=== PATIENT | male | born 1970 | race Caucasian/White ===

== ENCOUNTER 2021-03-05 18:50 | Outpatient (CLI) | payer MEDICAID, SELFPAY ==
[2021-03-05 19:21] LABS: Basophils # 0.1 10^3/uL (0.0-0.1); Basophils % 0.7 %; Eosinophils # 0.3 10^3/uL (0.0-0.8); Eosinophils % 3.6 %; Hematocrit 36.6 % (42.0-52.0); Hemoglobin 12.1 g/dL (11.7-16.6); Lymphocytes # 2.7 10^3/uL (0.8-4.8); Mean Corpuscular HGB Conc 33.1 g/dL (30.0-36.0); Mean Corpuscular Hemoglobin 30.1 pg (28.0-34.0); Mean Platelet Volume 11.5 fL (7.4-10.4); Monocytes % 10.5 %; Neutrophils # 5.12 10^3/uL (1.8-7.7); Neutrophils % 55.7 %; Nucleated Red Blood Cells % 0 %; Platelet Count 295 10^3/cmm (130-400); Red Blood Count 4.02 10^6/uL (4.1-5.3); Red Cell Distribution Width 15.3 % (12.1-15.1); White Blood Count 9.2 10^3/uL (4.0-10.0)
[2021-03-05 19:54] LABS: Alanine Aminotransferase 17 U/L (0-41); Albumin Level 4.2 g/dL (3.5-5.2); Alkaline Phosphatase 62 IU/L (40-130); Blood Urea Nitrogen 13 mg/dL (6-20); Calcium 9.4 mg/dL (8.5-10.5); Carbon Dioxide 26 mmol/L (22-29); Chloride 103 mmol/L (98-107); Globulin 2.5 g/dL (1.3-4.6); Glomerular Filtration Rate 90.1 mL/min (90-130); Glucose 119 mg/dL (65-115); Osmolality Calculated 291 mOsm/kg (285-295); Sodium 140 mmol/L (136-145); Total Bilirubin 0.2 mg/dL (0.15-1.2); Total Protein 6.7 g/dL (6.6-8.7)
[2021-03-05 19:56] LABS: Anion Gap 15.1 (5-19); Aspartate Amino Transferase 18 U/L (0-40); Potassium 4.1 mmol/L (3.5-5.1)
== END 2021-03-05 18:51 | disposition home or self-care (01) ==
LOC: LAB 18:52
PROVIDERS: Visit Provider General Practice
DX: F32.A Depression, unspecified (principal)
CPT/HCPCS: 80053; 85025

== ENCOUNTER 2021-06-29 18:05 | Inpatient (IN) | payer MEDICAID, SELFPAY ==
[2021-06-29 18:10] VITALS: BMI 24.8
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
[2021-06-29 19:19] LABS: Basophils # 0.1 10^3/uL (0.0-0.1); Basophils % 0.6 %; Eosinophils # 0.2 10^3/uL (0.0-0.8); Hematocrit 41.8 % (42.0-52.0); Lymphocytes # 3.7 10^3/uL (0.8-4.8); Lymphocytes % 41.4 %; Mean Corpuscular HGB Conc 33.5 g/dL (30.0-36.0); Mean Corpuscular Hemoglobin 28.1 pg (28.0-34.0); Mean Corpuscular Volume 83.8 fl (80-94); Monocytes # 0.6 10^3/uL (0.2-0.9); Monocytes % 6.9 %; Neutrophils # 4.42 10^3/uL (1.8-7.7); Neutrophils % 48.8 %; Nucleated Red Blood Cells % 0 %; Platelet Count 281 10^3/cmm (130-400); Red Blood Count 4.99 10^6/uL (4.1-5.3); Red Cell Distribution Width 13.5 % (12.1-15.1)
[2021-06-29 19:35] LABS: Amphetamines Screen Urine Negative (Negative); Barbiturates Screen Urine Negative (Negative); Benzodiazepines Screen Urine Negative (Negative); Cocaine Screen Urine Negative (Negative); Opiate Screen Urine Negative (Negative); PCP Screen Urine Negative (Negative); THC Screen Urine Negative (Negative)
[2021-06-29 19:36] VITALS: BP 153/102; PULSE 100; RESP 16; TEMP 36.6; O2SAT 95
[2021-06-29 19:47] LABS: Alanine Aminotransferase 47 U/L (0-41); Albumin Level 4.7 g/dL (3.5-5.2); Alkaline Phosphatase 62 IU/L (40-130); Anion Gap 21.9 (5-19); Aspartate Amino Transferase 67 U/L (0-40); Blood Urea Nitrogen 13 mg/dL (6-20); Calcium 9.5 mg/dL (8.5-10.5); Carbon Dioxide 23 mmol/L (22-29); Chloride 103 mmol/L (98-107); Globulin 2.3 g/dL (1.3-4.6); Glomerular Filtration Rate 120.4 mL/min (90-130); Glucose 86 mg/dL (65-115); Osmolality Calculated 297 mOsm/kg (285-295); Potassium 3.9 mmol/L (3.5-5.1); Sodium 144 mmol/L (136-145); Total Bilirubin 0.3 mg/dL (0.15-1.2)
[2021-06-29 19:54] LABS: Acetaminophen < 5.0 ug/mL (10-30); Salicylate < 0.3 mg/dL (3-10)
[2021-06-29 19:55] LABS: Alcohol Level 344 mg/dL (0-10)
[2021-06-29 20:41] VITALS: BP 126/88; PULSE 119; RESP 18; O2SAT 93
[2021-06-29 21:00] VITALS: BP 136/95; PULSE 114; RESP 18; O2SAT 94
[2021-06-29 21:31] LABS: SARS Covid-2 Antigen Negative (Negative)
[2021-06-29] MEDS: multivitamin therapeutic Tablet 1 TAB PO (21:41)
[2021-06-29] MEDS: LORazepam 2 mg/mL INJ 1 mL 1 MG IM (22:35)
[2021-06-29] MEDS: haloperidol inj 5 mg/mL INJ 1 mL IM (22:35)
[2021-06-29 22:44] VITALS: BP 109/70; PULSE 99; RESP 16; O2SAT 94
[2021-06-29 23:30] VITALS: BP 113/73; PULSE 106; RESP 18; TEMP 36.9; O2SAT 92
[2021-06-30] VITALS: BP 108/72; BP 110/70; PULSE 101; PULSE 99; RESP 16; RESP 17; O2SAT 93; O2SAT 94
[2021-06-30 04:00] VITALS: BP 116/75; PULSE 95; RESP 16; TEMP 36.8; O2SAT 95
--- NOTE | 2021-06-30 08:23 | PC.NURSE ---
while at bedside pt is in nad. pt is calm and answering questions appropriately.
--- NOTE | 2021-06-30 11:39 | PC.PHAR ---
PT STATES HE TAKES CARE OF HIS OWN MEDICATIONS-PT STATES HE GOT SOME OF HIS MEDICATIONS FROM THE [facility] AND IS UNSURE OF THE [facility] PHONE NUMBER WAS DISCONNECTED
[2021-06-30 13:26] VITALS: BP 136/87; PULSE 16; RESP 84; O2SAT 96
[2021-06-30 14:03] VITALS: BP 138/74; PULSE 86; RESP 17; TEMP 36.4; O2SAT 98
[2021-06-30] MEDS: hyDROXYzine 25 mg Capsule 50 MG PO (17:17)
--- NOTE | 2021-06-30 18:48 | PC.NURSE ---
PRN- Patient c/o anxiety at 1717. Took PRN Vistaril at that time. Medication somewhat helpful.
[2021-06-30 20:24] VITALS: BP 150/83; PULSE 77; RESP 18; TEMP 36.6; O2SAT 99
[2021-06-30] MEDS: buPROPion XL (24 HR) 150 mg Tablet PO (21:37)
[2021-06-30] MEDS: gabapentin 300 mg Capsule PO (21:38)
[2021-06-30] MEDS: CELEcoxib 100 mg Capsule PO (21:38)
[2021-07-01 05:43] VITALS: BP 124/78; PULSE 64; RESP 17; TEMP 36.9; O2SAT 97
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
[2021-07-01] MEDS: citalopram 20 mg Tablet 40 MG PO (08:32)
[2021-07-01] MEDS: CELEcoxib 100 mg Capsule PO ×2 (08:32→16:55)
[2021-07-01] MEDS: gabapentin 300 mg Capsule PO ×3 (08:32→21:29)
[2021-07-01] MEDS: nicotine 21 mg Patch 1 PATCH TRANSDERMA (09:10)
--- NOTE | 2021-07-01 12:48 | NPU.GN ---
[facility] Unit Group Topic:Coping Skills General Mood of Group: Jacobo did attend and participate in group today. He was also set up with a therapy appointment with [facility] Jun. He was social and hygiene was good. Client seems stable at this time.
[2021-07-01] MEDS: hyDROXYzine 25 mg Capsule 50 MG PO ×2 (13:15→21:41)
--- NOTE | 2021-07-01 13:21 | SUR.EXTENDED ---
PATIENT C/O ANXIETY. [facility] ADMINISTERED PO. WILL MONITOR FOR DRUG EFFECTIVENESS
[2021-07-01 13:46] VITALS: BP 129/81; PULSE 75; RESP 22; TEMP 36.9; O2SAT 98
--- NOTE | 2021-07-01 14:10 | PC.NURSE ---
PATIENT REPORTS HE FEELS BETTER, PRN EFFECTIVE. WILL CONT TO MONITOR, SUPPORT AND REDIRECT NEEDED
[2021-07-01 20:14] VITALS: BP 129/81; PULSE 75; RESP 22; TEMP 36.9; O2SAT 98
[2021-07-01] MEDS: buPROPion XL (24 HR) 150 mg Tablet PO (21:29)
[2021-07-02] MEDS: OLANZapine 5 mg ODT PO (01:02)
[2021-07-02 06:00] VITALS: RESP 16
[2021-07-02] MEDS: hyDROXYzine 25 mg Capsule 50 MG PO ×2 (10:19→18:19)
[2021-07-02] MEDS: citalopram 20 mg Tablet 40 MG PO (10:19)
[2021-07-02] MEDS: buPROPion XL (24 HR) 150 mg Tablet PO (10:19)
[2021-07-02] MEDS: CELEcoxib 100 mg Capsule PO ×2 (10:19→18:19)
[2021-07-02] MEDS: gabapentin 300 mg Capsule PO ×3 (10:20→21:25)
[2021-07-02] MEDS: nicotine 21 mg Patch 1 PATCH TRANSDERMA (11:15)
--- NOTE | 2021-07-02 12:47 | NPU.GN ---
[facility] Unit Group Topic:Symptoms/ Judgment Boat Activity General Mood of Group: Jacobo did attend and participate in group today. Hygiene was ok , did well and seems stable at this time.
[2021-07-02 14:00] VITALS: BP 110/74; PULSE 77; RESP 22; TEMP 36.4; O2SAT 97
--- NOTE | 2021-07-02 15:32 | P.NPUPN_ITS ---
Subjective NPU Subjective: Interval history: He said that he is doing much better. He says he has things lined. He has a class or 2 every day and will spend 8 hours on Tuesday and Tuesday afternoon. He has no part-time and will increase to full-time at his job very soon. He is adamant that he is going to stay away from alcohol. He says that he has tried Antabuse and naltrexone previously and they have not been helpful for his alcohol. He has not required any Ativan for alcohol withdrawal. He feels like his medication is working well for his depression and anxiety. He is anxious to go home and clean up his house before going to turn he leaves for 8 hoursthis weekend and restarted work on Tuesday. Mental Status Exam MSE Comments: This is a well-nourished, well-developed, white male, with adequate dress, grooming, and eye contact. He had a red discoloration on his left cheek. No abnormal movements, except for psychomotor retardation. Cooperative with exam in no acute distress. Speech was slightly decreased rate and volume. Mood described as better; affect subdued. Thought process, organized. Thought content: patient denied any suicidal or homicidal ideation, there were no delusions reported or noted, patient denied any auditory or visual hallucinations. Attention, concentration, and memory appear intact but none were formally tested. He is alert and oriented times three. Insight and judgment are limited. Impulse control is limited. Cognition: Patient Appearance: Appropriate Level of Consciousness: Awake, Alert, Appropriate and Follows Commands Patient Cognition Impaired: No Ability to Follow Directions: Good Patient Orientation (long list): Person, Place, Time, Name and Age Comprehension Ability: No Impairment Hallucination Type: None Delusion Description: Not Present Thought Process: Appropriate Affect: Affect Description: Appropriate Behavior: Patient Behavior: Appropriate Speech Pattern: Appropriate Vitals/I&O/Wt Last Vital Signs Temp 98.5 F 07/01/21 20:14 Pulse 75 07/01/21 20:14 Resp 16 07/02/21 06:00 BP 129/81 07/01/21 20:14 Pulse Ox 98 07/01/21 20:14 Data NPU : 06/29/21 19:10 06/29/21 19:10 A&P Assessment and plan (1) Suicidal ideation: Status: Acute (2) Acute alcohol intoxication: Status: Acute (3) Major depressive disorder, recurrent: Status: Acute Plan This is a 50-year-old, white male, with a long a long history of depression and addiction, with recent mental health treatment as he has struggled with losing a significant relationship and friendship, who presents having relapsed on alcohol and feeling suicidal. 1. Continue current medication. 2. Encourage individual, group, and milieu therapy. 3. Continue q-15 minute checks for safety. 4. CIWA protocol. 5. Recommend sober living treatment at the highest level of care to which the patient is willing to commit. Involuntary Hold Information 96 Hour Hold: 96 Hour Involuntary Admission: Yes 96 Hour Hold Ending Date: 07/03/21 96 Hour Hold Ending Time: 18:20 Attestations NPU Medical Necessity Statement*: Inpatient hospitalization is medically necessary and the clinically appropriate intervention at this time. We will initiate medications and make changes as indicated. Coding Level of Care Code Acute Public Speaking Teacher for Garrett Marks Diagnoses Suicidal ideation R45.851 Acute alcohol intoxication F10.929 Major depressive disorder, recurrent F33.9
[2021-07-02] MEDS: trazodone 50 mg Tablet PO (21:22)
[2021-07-02 22:00] VITALS: BP 138/83; PULSE 77; RESP 16; TEMP 36.4; O2SAT 98
[2021-07-03 06:00] VITALS: BP 114/75; PULSE 84; RESP 16; O2SAT 97
[2021-07-03] MEDS: buPROPion XL (24 HR) 150 mg Tablet PO (06:43)
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
[2021-07-03] MEDS: citalopram 20 mg Tablet 40 MG PO (10:04)
[2021-07-03] MEDS: CELEcoxib 100 mg Capsule PO (10:04)
[2021-07-03] MEDS: gabapentin 300 mg Capsule PO (10:04)
[2021-07-03 10:39] VITALS: BP 114/75; PULSE 84; RESP 16; O2SAT 97
== END 2021-07-03 11:15 | disposition home or self-care (01) | DRG 885 ==
LOC: ER 23:58 → ER IP 06-30 08:08 → NP 07-01 06:00
PROVIDERS: Emergency Medicine; Admitting Provider Psychiatry & Neurology Psychiatry; Emergency Provider Physician Assistant; Visit Provider Psychiatry & Neurology Psychiatry
DX: F33.9 Major depressive disorder, recurrent, unspecified (principal); R45.851 Suicidal ideations; F10.129 Alcohol abuse with intoxication, unspecified; Z91.51 Personal history of suicidal behavior
CPT/HCPCS: 80053; 80306; 80307; 85025; 87426; 96372; 97150; 97165; 99285; J1630; J2060; J3411; J3490

== ENCOUNTER → 2021-08-03 09:43 | Outpatient (BNVA) | payer OTHER, MEDICAID, SELFPAY | PROVIDERS: Visit Provider Counselor Mental Health | DX: F33.1 Major depressive disorder, recurrent, moderate (principal) | CPT/HCPCS: 90834 ==

== ENCOUNTER 2021-09-08 19:35 | Inpatient (IN) | payer MEDICAID, SELFPAY ==
[2021-09-08 19:37] VITALS: BP 160/98; PULSE 100; RESP 18; TEMP 36.7; O2SAT 97; BMI 27.1
--- NOTE | 2021-09-08 19:41 | ED_ITS ---
HPI - General Adult General: Chief complaint: Psychiatric Symptoms Stated complaint: SI Time Seen by Provider: 09/08/21 19:39 History of Present Illness: HPI: [51]yo patient w/ hx of alcohol abuse BIBA for suicidal ideation with plan. Patient plans to hang himself. On arrival, the patient is AAOx3 and cooperative with my evaluation. No focal complaints of chest pain, shortness of breath, palpitations, N/V, focal GI/ complaints. Currently denies HI. No complaints of hallucinations. Onset: acute Duration: ongoing Location: home Severity: severe Associated symptoms: Deny chest pain, dyspnea, nausea, rash, palpitations or vomiting Review of Systems Const: Denies: fever(s) or chills Eyes: Denies: change in vision ENMT: Denies: mouth pain Card: Denies: chest pain or palpitations Resp: Denies: dyspnea or non-productive cough GI: Denies: abdominal pain, nausea, vomiting or diarrhea : Denies: dysuria Musc: Denies: extremity pain Skin/Breast: Denies: rash or new lesions Neuro: Denies: weakness in extremities Psych: Reports: depression and suicidal ideation Bg/Lymph: Denies: easy bruising PFSH ED PFSH: Medical History Alcohol dependence Depression Psychiatric care Social History Smoking and tobacco status: current every day smoker Alcohol intake: current Substance/Drug Use: never Physical Exam Const: COMMON NORMALS: alert HENMT: COMMON NORMALS: atraumatic HEAD & SCALP: atraumatic MOUTH: moist mucous membranes not abnormal Eye: COMMON NORMALS: EOMs intact bilaterally and conjunctivae normal CONJUNCTIVA: Yes conjunctivae normal Neck/C-Spine: COMMON NORMALS: full ROM and supple Resp: COMMON NORMALS: normal respiratory effort and clear to auscultation bilaterally AUSCULTATION: clear to auscultation bilaterally Cardio: COMMON NORMALS: regular rate RATE: regular rate GI: COMMON NORMALS: Soft to palpation and non-tender PALPATION: Yes Soft to palpation Extremity: COMMON NORMALS: full ROM Neuro: SENSORIUM/ORIENTATION: Yes alert MOTOR EXAM: No Abnormal motor strength present and Other motor observations present (no focal motor deficits) Psych: COMMON NORMALS: speech normal SPEECH: Yes normal speech MOOD & AFFECT: Yes depressed mood Course Vital Signs: Vital signs: Vital Signs Temperature 98.0 F 09/08/21 19:37 Pulse Rate 100 09/08/21 19:37 Respiratory Rate 18 09/08/21 19:37 Blood Pressure 160/98 09/08/21 19:37 Pulse Oximetry 97 09/08/21 19:37 MDM - General Adult Medical Decision Making [51]yo patient w/ hx of depression and alcohol dependence presenting for SI with plan. HDS, exam within normal limit Thoughts are linear and organized, and the patient has no AH/VH, or HI. Clinically the patient displays no overt toxidrome; they are well appearing, with low suspicion for toxic ingestion given history and exam. Symptoms unlikely 2/2 anemia, hypothyroidism, infection, or ICH. Workup: CBC, CMP, Lipase, salicylate/tylenol, UDS Lab findings: wnl [8:45pm] On reassessment, labs and workup wnl. Patient is hemodynamically stable with no acute medical complaints. Case discussed with psychiatric provider Dr. Walls at [facility] psych inpatient with recommendation for admission Disposition: Psych Lab Data : 09/08/21 19:50 09/08/21 19:50 Laboratory Results WBC 6.0 10^3/uL (4.0-10.0) 09/08/21 19:50 RBC 4.88 10^6/uL (4.1-5.3) 09/08/21 19:50 Hgb 13.9 g/dL (11.7-16.6) 09/08/21 19:50 Hct 41.2 % (42.0-52.0) L 09/08/21 19:50 MCV 84.4 fl (80-94) 09/08/21 19:50 MCH 28.5 pg (28.0-34.0) 09/08/21 19:50 MCHC 33.7 g/dL (30.0-36.0) 09/08/21 19:50 RDW 15.8 % (12.1-15.1) H 09/08/21 19:50 Plt Count 256 10^3/cmm (130-400) 09/08/21 19:50 MPV 10.1 fL (7.4-10.4) 09/08/21 19:50 Neut % (Auto) 71.3 % 09/08/21 19:50 Lymph % (Auto) 16.3 % 09/08/21 19:50 [place] % (Auto) 11.1 % 09/08/21 19:50 Eos % (Auto) 0.3 % 09/08/21 19:50 Baso % (Auto) 0.7 % 09/08/21 19:50 Neut # (Auto) 4.24 10^3/uL (1.8-7.7) 09/08/21 19:50 Lymph # (Auto) 1.0 10^3/uL (0.8-4.8) 09/08/21 19:50 [place] # (Auto) 0.7 10^3/uL (0.2-0.9) 09/08/21 19:50 Eos # (Auto) 0.0 10^3/uL (0.0-0.8) 09/08/21 19:50 Baso # (Auto) 0.0 10^3/uL (0.0-0.1) 09/08/21 19:50 Nucleated RBC % (auto) 0 % 09/08/21 19:50 Nucleated RBCs # 0.0 /100WBC 09/08/21 19:50 Discharge Plan Discharge Patient Disposition: Admitted As Inpatient Clinical Impression: Depression with suicidal ideation Condition: Stable Coding Level of Care Code ED Sessions Clerk for Garrett Fwd Exam Comprehensive
[2021-09-08 19:58] LABS: Basophils % 0.7 %; Eosinophils % 0.3 %; Hematocrit 41.2 % (42.0-52.0); Hemoglobin 13.9 g/dL (11.7-16.6); Lymphocytes % 16.3 %; Mean Corpuscular HGB Conc 33.7 g/dL (30.0-36.0); Mean Corpuscular Hemoglobin 28.5 pg (28.0-34.0); Mean Corpuscular Volume 84.4 fl (80-94); Mean Platelet Volume 10.1 fL (7.4-10.4); Monocytes # 0.7 10^3/uL (0.2-0.9); Monocytes % 11.1 %; Neutrophils # 4.24 10^3/uL (1.8-7.7); Neutrophils % 71.3 %; Nucleated Red Blood Cells % 0 %; Platelet Count 256 10^3/cmm (130-400); Red Blood Count 4.88 10^6/uL (4.1-5.3); Red Cell Distribution Width 15.8 % (12.1-15.1)
[2021-09-08] MEDS: nicotine 21 mg Patch 1 PATCH TRANSDERMA (20:08)
[2021-09-08 20:15] LABS: Alanine Aminotransferase 32 U/L (0-41); Albumin Level 4.9 g/dL (3.5-5.2); Alkaline Phosphatase 62 IU/L (40-130); Aspartate Amino Transferase 40 U/L (0-40); Blood Urea Nitrogen 9 mg/dL (6-20); Calcium 9.7 mg/dL (8.5-10.5); Carbon Dioxide 23 mmol/L (22-29); Chloride 96 mmol/L (98-107); Globulin 2.2 g/dL (1.3-4.6); Glomerular Filtration Rate 102.7 mL/min (90-130); Glucose 77 mg/dL (65-115); Lipase 29 U/L (13-60); Osmolality Calculated 279 mOsm/kg (285-295); Sodium 136 mmol/L (136-145); Total Bilirubin 0.3 mg/dL (0.15-1.2); Total Protein 7.1 g/dL (6.6-8.7)
[2021-09-08 20:18] LABS: Acetaminophen < 5.0 ug/mL (10-30); Salicylate < 0.3 mg/dL (3-10)
[2021-09-08 20:24] LABS: Amphetamines Screen Urine Negative (Negative); Barbiturates Screen Urine Negative (Negative); Benzodiazepines Screen Urine Negative (Negative); Cocaine Screen Urine Negative (Negative); Opiate Screen Urine Negative (Negative); PCP Screen Urine Negative (Negative); THC Screen Urine Negative (Negative)
[2021-09-08 22:24] LABS: Alcohol Level 40 mg/dL (0-10)
[2021-09-08 22:32] VITALS: PULSE 95; RESP 18; O2SAT 93
[2021-09-08 22:48] VITALS: BP 139/88; PULSE 98; RESP 18; TEMP 36.9; O2SAT 97
[2021-09-08] MEDS: hyDROXYzine 25 mg Capsule 50 MG PO (23:49)
--- NOTE | 2021-09-09 05:10 | PC.ADMIT ---
[address] Admission Note: The patient,Jacobo Garsia,51 y/o, was given written information regarding hospital policies, unit procedures and contact persons. Patient's smoking status: current every day smoker. Vital Signs - 8 hr 09/08/21 22:32 09/08/21 22:48 Temperature 98.4 F Pulse Rate 95 98 Respiratory Rate 18 18 Blood Pressure 139/88 Pulse Oximetry 93 97 Patient states he came in tonight due to SI and worsening depression. Patient stated current stressors as losing his job yesterday and not being able to pay rent at his apt and that he will need to move all his belongings by tuesday, he also states he made his daughter mad recently and his adoptive dad last year and mom has alzheimers and is in shelter in [place] and doesn't even know his name. He states he has no one as a support system right now. Patient states he is currently going to drug court and is also going to classes at [facility] drug rehab. He states he has drank 5 bottles of alcohol in approx 4 days recently BAL was 40, and has been smoking 1pk cigarettes per day. Denies all other drug use and UDS was negative.
[2021-09-09 06:00] VITALS: BP 134/87; PULSE 66; RESP 19; TEMP 36.7; O2SAT 97
[2021-09-09] MEDS: CELEcoxib 100 mg Capsule PO ×2 (09:16→21:14)
[2021-09-09] MEDS: gabapentin 300 mg Capsule PO ×3 (09:16→21:13)
[2021-09-09] MEDS: folic acid 1 mg Tablet PO (09:16)
[2021-09-09] MEDS: thiamine 100 mg Tablet PO (09:16)
[2021-09-09] MEDS: multivitamin therapeutic Tablet 1 TAB PO (09:16)
[2021-09-09] MEDS: hyDROXYzine 25 mg Capsule 50 MG PO ×2 (09:18→16:46)
--- NOTE | 2021-09-09 09:18 | PC.NURSE ---
PRN VISTARIL 50 MG GIVEN PO PER PT C/O STATED ANXIETY. WILL CONT TO MONITOR
--- NOTE | 2021-09-09 10:36 | PC.NURSE ---
PT IN BED. REPORTS THAT HE HAS CONTINUED SI, NO PLAN BUT INTRUSIVE THOUGHTS. PT DOES CONTRACT FOR SAFETY. DENIES ANY HI OR AVH. ENDORSES DEPRESSION. PT IS OX4, AND ANSWERS QUESTIONS APPROPRIATELY. AFFECT IS FLAT. STAFF WILL CONTINUE TO MONITOR.
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
[2021-09-09 14:00] VITALS: BP 178/84; PULSE 97; RESP 18; TEMP 36.6; O2SAT 99
--- NOTE | 2021-09-09 14:53 | PC.SOCIAL ---
Patient did not attend group.
--- NOTE | 2021-09-09 16:47 | PC.NURSE ---
PRN VISTARIL 50 MG GIVEN PO PER PT C/O STATED ANXIETY. NO OUTWARD S/S OF ANXIETY NOTED, PT PREVIOUSLY ASLEEP IN BED IN ROOM
[2021-09-09 20:38] VITALS: BP 119/76; PULSE 65; RESP 18; TEMP 36.9; O2SAT 98
[2021-09-09] MEDS: buPROPion XL (24 HR) 150 mg Tablet PO (21:13)
[2021-09-10] MEDS: hyDROXYzine 25 mg Capsule 50 MG PO (00:48)
[2021-09-10] MEDS: nicotine 4 mg lozenge MUCOUS MEM (00:48)
--- NOTE | 2021-09-10 00:50 | PC.NURSE ---
0050-C/O anxiety vistaril given po
[2021-09-10] MEDS: OLANZapine 5 mg ODT PO (03:34)
[2021-09-10 06:00] VITALS: BP 111/64; PULSE 59; RESP 18; TEMP 36.8; O2SAT 96
[2021-09-10] MEDS: CELEcoxib 100 mg Capsule PO (08:08)
[2021-09-10] MEDS: multivitamin therapeutic Tablet 1 TAB PO (08:08)
[2021-09-10] MEDS: gabapentin 300 mg Capsule PO (08:08)
[2021-09-10] MEDS: thiamine 100 mg Tablet PO (08:08)
[2021-09-10] MEDS: citalopram 20 mg Tablet 40 MG PO (08:09)
[2021-09-10] MEDS: folic acid 1 mg Tablet PO (08:09)
[2021-09-10] MEDS: nicotine 21 mg Patch 1 PATCH TRANSDERMA (08:45)
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
[2021-09-10 13:17] VITALS: BP 111/64; PULSE 59; RESP 18; TEMP 36.8; O2SAT 96
== END 2021-09-10 14:15 | disposition home or self-care (01) | DRG 885 ==
LOC: ER 20:15 → NP 09-09 06:17
PROVIDERS: Admitting Provider Psychiatry & Neurology Psychiatry; Emergency Provider Emergency Medicine; Visit Provider Psychiatry & Neurology Psychiatry
DX: F33.9 Major depressive disorder, recurrent, unspecified (principal); R45.851 Suicidal ideations; F10.20 Alcohol dependence, uncomplicated; F17.200 Nicotine dependence, unspecified, uncomplicated; Z56.89 Other problems related to employment; Z91.51 Personal history of suicidal behavior
CPT/HCPCS: 80053; 80306; 80307; 83690; 85025; 97150; 97165; 99285

== ENCOUNTER → 2021-09-18 13:22 | Outpatient (BNVA) | payer OTHER, MEDICAID, SELFPAY | PROVIDERS: Visit Provider Psychiatry & Neurology Psychiatry | DX: F41.1 Generalized anxiety disorder (principal); F40.10 Social phobia, unspecified; F10.20 Alcohol dependence, uncomplicated; F33.9 Major depressive disorder, recurrent, unspecified | CPT/HCPCS: 99204 ==

== ENCOUNTER → 2021-09-21 07:50 | Outpatient (BNVA) | payer OTHER, MEDICAID, SELFPAY | PROVIDERS: Visit Provider Counselor Mental Health | DX: F33.1 Major depressive disorder, recurrent, moderate (principal) | CPT/HCPCS: 90832 ==

== ENCOUNTER → 2021-10-05 09:36 | Outpatient (BNVA) | payer OTHER, SELFPAY | PROVIDERS: Visit Provider Counselor Mental Health | DX: F33.9 Major depressive disorder, recurrent, unspecified (principal); F60.3 Borderline personality disorder | CPT/HCPCS: 90791 ==

== ENCOUNTER → 2021-10-12 09:45 | Outpatient (BNVA) | payer OTHER, MEDICAID, SELFPAY | PROVIDERS: Visit Provider Counselor Mental Health | DX: F60.3 Borderline personality disorder (principal) | CPT/HCPCS: 90834 ==

== ENCOUNTER → 2021-10-16 15:08 | Outpatient (BNVA) | payer OTHER, SELFPAY | PROVIDERS: Visit Provider Psychiatry & Neurology Psychiatry | DX: F40.10 Social phobia, unspecified (principal); F41.1 Generalized anxiety disorder; F10.20 Alcohol dependence, uncomplicated; F33.9 Major depressive disorder, recurrent, unspecified; F60.3 Borderline personality disorder | CPT/HCPCS: 99214 ==

== ENCOUNTER → 2021-10-26 09:36 | Outpatient (BNVA) | payer OTHER, SELFPAY | PROVIDERS: Visit Provider Counselor Mental Health | DX: F60.3 Borderline personality disorder (principal) | CPT/HCPCS: 90834 ==

== ENCOUNTER 2022-07-06 08:59 | Emergency (ER) | payer MEDICAID, SELFPAY ==
[2022-07-06 09:10] VITALS: BP 136/89; PULSE 92; RESP 17; TEMP 36.4; O2SAT 96; BMI 32.1
[2022-07-06 09:52] VITALS: PULSE 72; O2SAT 97
[2022-07-06 09:59] LABS: Basophils # 0.1 10^3/uL (0.0-0.1); Basophils % 0.8 %; Eosinophils # 0.4 10^3/uL (0.0-0.8); Eosinophils % 4.7 %; Hematocrit 41.3 % (42.0-52.0); Hemoglobin 13.4 g/dL (11.7-16.6); Lymphocytes # 2.3 10^3/uL (0.8-4.8); Lymphocytes % 30.3 %; Mean Corpuscular HGB Conc 32.4 g/dL (30.0-36.0); Mean Corpuscular Hemoglobin 28.2 pg (28.0-34.0); Mean Corpuscular Volume 86.8 fl (80-94); Mean Platelet Volume 10.6 fL (7.4-10.4); Monocytes # 0.7 10^3/uL (0.2-0.9); Monocytes % 8.7 %; Neutrophils # 4.18 10^3/uL (1.8-7.7); Neutrophils % 54.8 %; Nucleated Red Blood Cells % 0 %; Platelet Count 253 10^3/cmm (130-400); Red Blood Count 4.76 10^6/uL (4.1-5.3); Red Cell Distribution Width 14.2 % (12.1-15.1); White Blood Count 7.6 10^3/uL (4.0-10.0)
--- NOTE | 2022-07-06 09:59 | ED.C_ITS ---
HPI - Psych General: Chief Complaint: Psychiatric Symptoms Stated Complaint: psych eval Time Seen by Provider: 07/06/22 09:28 Source: patient Mode of arrival: ambulatory History of Present Illness: 51-year-old male with a history of alcohol abuse and previous suicidal ideation. He presented to [facility] for intake today and made a comment that he had suicidal thoughts within the last week. At this time he denies any suicidal homicidal ideation he has no plan and he is done nothing to advance any sort of lethality. He said previous hospitalizations for suicidal ideation related to education he was discharged at both hospitalizations in 1 to 2 days. He is mostly concerned at this time that his medications do not seem to be working he is on extensive list of medications. MD complaint: suicidal ideation Onset (ago): week(s) Duration: intermittent History of same: Yes Relieving factors: none Exacerbating factors: none Associated psychiatric symptoms: depression Associated symptoms: Reports depression Treatments prior to arrival: none If self harm: admits thoughts of self harm Review of Systems Const: Denies: fever(s), chills, body aches, change in appetite, fatigue or malaise ENMT: Denies: throat pain, ear or mastoid pain, nasal discharge or nasal congestion Card: Denies: chest pain, edema, dyspnea on exertion or orthopnea Resp: Denies: dyspnea, productive cough or non-productive cough GI: Denies: abdominal pain, nausea, vomiting, hematemesis, coffee ground emesis, diarrhea, constipation, bloating, hematochezia or melena : Denies: flank pain, dysuria, urinary frequency or urinary urgency Skin/Breast: Denies: rash or pruritus Psych: Reports: depression [facility] PFSH: Medical History Alcohol dependence Depression Depression with suicidal ideation Psychiatric care Social History Smoking and tobacco status: current every day smoker cigarettes Packs smoked per day: 0.5 Years cigarettes smoked: 35 Quit status (tobacco): has tried quititng Number of times tried to quit tobacco: 3 Second hand smoke exposure: No Alcohol intake: current Physical Exam Const: COMMON NORMALS: no acute distress GENERAL APPEARANCE: cooperative and comfortable ORIENTATION/CONSCIOUSNESS: Yes awake, Yes oriented to person, Yes oriented to place and Yes oriented to time HENMT: COMMON NORMALS: normocephalic, atraumatic, hearing grossly normal bilaterally, external ears normal, EAC's normal, TM's normal bilaterally, Normal nasal mucous membranes and turbinates present, moist oral mucous membranes and oropharynx normal HEAD & SCALP: normocephalic and atraumatic NOSE: Normal nasal mucous membranes and turbinates present EXTERNAL EAR: Yes external ears normal EXTERNAL AUDITORY CANAL: EAC's normal TYMPANIC MEMBRANE: TM's no rmal bilaterally Eye: COMMON NORMALS: Equal, round and reactive pupils present, EOMs intact bilaterally, conjunctivae normal and no scleral icterus CONJUNCTIVA: Yes conjunctivae normal PUPIL: Yes Equal, round and reactive pupils present Neck/C-Spine: COMMON NORMALS: full ROM, no lymphadenopathy, supple and no JVD Lymph: LYMPHATIC: no lymphadenopathy noted and no lymphedema noted Resp: COMMON NORMALS: normal respiratory effort, No retractions, No use of accessory muscles and clear to auscultation bilaterally AUSCULTATION: clear to auscultation bilaterally Cardio: COMMON NORMALS: no JVD, regular rate, regular rhythm and No murmurs present (Cardio) RATE: regular rate RHYTHM: regular rhythm GI: COMMON NORMALS: Soft to palpation and No hepatosplenomegaly present AUSCULTATION: Yes normoactive bowel sounds PALPATION: Yes Soft to palpation, No Tenderness to palpation present (GI), No Guarding due to palpation present (GI) and Yes No hepatosplenomegaly present Extremity: COMMON NORMALS: normal to inspection, capillary refill normal, no clubbing, cyanosis or edema, no calf tenderness and no pedal edema Neuro: SENSORIUM/ORIENTATION: Yes oriented to person, Yes oriented to place and Yes oriented to time Skin: COMMON NORMALS: no rashes or lesions noted GENERAL SKIN EXAM: no rashes or lesions noted Course Vital Signs: Vital signs: Vital Signs Temperature 97.6 F 07/06/22 09:10 Pulse Rate 72 07/06/22 09:52 Respiratory Rate 17 07/06/22 09:10 Blood Pressure 136/89 07/06/22 09:10 Pulse Oximetry 97 07/06/22 09:52 Oxygen Delivery Me thod 07/06/22 09:52 [facility] - Psych Medical Decision Making Chart reviewed after seeing patient. He has had several episodes of suicidal ideation in the past he states he is considered it lately but he has no active plan at this time I called and reviewed with Dr. Deutsch including his previous hospitalizations his history and his complaint at the medications or not working at this time. Patient is adamant though that currently he is not suicidal. Dr. Deutsch and I both agree that the patient be a good candidate for psychiatric stabilization unit. Discussed with the patient he is agreeable to this she will be discharged from the ER and transported by shuttle to stabilization unit. Medical Records I reviewed the patient's medical records. Lab Data I reviewed the patient's lab results. 07/06/22 09:45 07/06/22 09:45 Laboratory Results WBC 7.6 10^3/uL (4.0-10.0) 07/06/22 09:45 RBC 4.76 10^6/uL (4.1-5.3) 07/06/22 09:45 Hgb 13.4 g/dL (11.7-16.6) 07/06/22 09:45 Hct 41.3 % (42.0-52.0) L 07/06/22 09:45 MCV 86.8 fl (80-94) 07/06/22 09:45 MCH 28.2 pg (28.0-34.0) 07/06/22 09:45 MCHC 32.4 g/dL (30.0-36.0) 07/06/22 09:45 RDW 14.2 % (12.1-15.1) 07/06/22 09:45 Plt Count 253 10^3/cmm (130-400) 07/06/22 09:45 MPV 10.6 fL (7.4-10.4) H 07/06/22 09:45 Neut % (Auto) 54.8 % 07/06/22 09:45 Lymph % (Auto) 30.3 % 07/06/22 09:45 [place] % (Auto) 8.7 % 07/06/22 09:45 Eos % (Auto) 4.7 % 07/06/22 09:45 Baso % (Auto) 0.8 % 07/06/22 09:45 Neut # (Auto) 4.18 10^3/uL (1.8-7.7) 07/06/22 09:45 Lymph # (Auto) 2.3 10^3/uL (0.8-4.8) 07/06/22 09:45 [place] # (Auto) 0.7 10^3/uL (0.2-0.9) 07/06/22 09:45 Eos # (Auto) 0.4 10^3/uL (0.0-0.8) 07/06/22 09:45 Baso # (Auto) 0.1 10^3/uL (0.0-0.1) 07/06/22 09:45 Nucleated RBC % (auto) 0 % 07/06/22 09:45 Nucleated RBCs # 0.0 /100WBC 07/06/22 09:45 Sodium 139 mmol/L (136-145) 07/06/22 09:45 Potassium 5.0 mmol/L (3.5-5.1) 07/06/22 09:45 Chloride 104 mmol/L (98-107) 07/06/22 09:45 Carbon Dioxide 24 mmol/L (22-29) 07/06/22 09:45 Anion Gap 16.0 (5-19) 07/06/22 09:45 BUN 15 mg/dL (6-20) 07/06/22 09:45 Creatinine 1.1 mg/dL (0.7-1.2) 07/06/22 09:45 GFR Calculation 71.1 mL/min (90-130) L 07/06/22 09:45 Glucose 90 mg/dL (65-115) 07/06/22 09:45 Calculated Osmolality 288 mOsm/kg (285-295) 07/06/22 09:45 Calcium 9.5 mg/dL (8.5-10.5) 07/06/22 09:45 Total Bilirubin 0.2 mg/dL (0.15-1.2) 07/06/22 09:45 AST 18 U/L (0-40) 07/06/22 09:45 ALT 24 U/L (0-41) 07/06/22 09:45 Alkaline Phosphatase 65 U/L (40-130) 07/06/22 09:45 Total Protein 6.7 g/dL (6.6-8.7) 07/06/22 09:45 Albumin 4.4 g/dL (3.5-5.2) 07/06/22 09:45 Globulin 2.3 g/dL (1.3-4.6) 07/06/22 09:45 Salicylates < 0.3 mg/dL (3-10) L 07/06/22 09:45 Acetaminophen < 5.0 ug/mL (10-30) L 07/06/22 09:45 Discharge Plan Discharge Patient Disposition: Home Clinical Impression: Major depressive disorder, recurrent, Borderline personality disorder, Suicidal ideation Condition: Stable Prescriptions: No Action bupropion HCl [Wellbutrin XL] 300 mg tablet extended release 24 hr 300 mg PO QAM Qty: 30 2RF citalopram 20 mg tablet 40 mg PO DAILY 30 Days Qty: 60 2RF gabapentin 300 mg capsule 300 mg PO TID 30 Days Qty: 90 2RF diclofenac sodium 75 mg Tablet,Delayed Release (Dr/Ec) 75 mg PO BID PRN (Reason: Pain) mirtazapine 15 mg tablet 15 mg PO QPM Discharge Orders: Discharge ED (Routine); Ordered 07/06/22 Ordered By: Jesse Painter Referrals: Kevin Rubio MD [Primary Care Provider] - Patient Instructions: Opioid Safety, Pain Management Activity Restrictions/Additional Instructions: You are seen evaluated in the emergency room with complaint of depression and difficulty with your medicines as well as occasional suicidal thoughts. Reviewed your chart and discussed with on-call psychiatry Dr. Deutsch he feels that you would be an excellent candidate for the crisis stabilization unit. He will be discharged from the emergency room and staff will make arrangements for you to go directly to crisis stabilization. There is a psychiatrist on duty will review your medications and make recommendations. Coding Level of Care Code ED Denial Resolution Specialist for Garrett Marks
[2022-07-06 10:20] LABS: Acetaminophen < 5.0 ug/mL (10-30); Alanine Aminotransferase 24 U/L (0-41); Albumin Level 4.4 g/dL (3.5-5.2); Alkaline Phosphatase 65 U/L (40-130); Aspartate Amino Transferase 18 U/L (0-40); Blood Urea Nitrogen 15 mg/dL (6-20); Calcium 9.5 mg/dL (8.5-10.5); Carbon Dioxide 24 mmol/L (22-29); Chloride 104 mmol/L (98-107); Globulin 2.3 g/dL (1.3-4.6); Glomerular Filtration Rate 71.1 mL/min (90-130); Glucose 90 mg/dL (65-115); Osmolality Calculated 288 mOsm/kg (285-295); Salicylate < 0.3 mg/dL (3-10); Sodium 139 mmol/L (136-145); Total Bilirubin 0.2 mg/dL (0.15-1.2); Total Protein 6.7 g/dL (6.6-8.7)
== END 2022-07-06 11:13 | disposition home or self-care (01) ==
PROVIDERS: Emergency Provider Family Medicine; PCP Family Medicine
DX: R45.851 Suicidal ideations (principal); F33.9 Major depressive disorder, recurrent, unspecified; F60.3 Borderline personality disorder; F17.210 Nicotine dependence, cigarettes, uncomplicated
CPT/HCPCS: 80053; 80307; 85025; 99283

== ENCOUNTER → 2022-08-13 13:05 | Outpatient (BNVA) | payer MEDICAID, SELFPAY | PROVIDERS: PCP Family Medicine; Referring Provider Family Medicine; Visit Provider Student in an Organized Health Care Education/Training Program | DX: S83.8X2A Sprain of other specified parts of left knee, initial encounter (principal); X58.XXXA Exposure to other specified factors, initial encounter | CPT/HCPCS: 73560; 73565 ==

== ENCOUNTER 2022-09-02 12:38 | Inpatient (IN) | payer MEDICAID, SELFPAY ==
[2022-09-02 12:56] VITALS: BMI 33.5
[2022-09-02 12:58] VITALS: PULSE 93; RESP 17; O2SAT 97
[2022-09-02 13:13] VITALS: BP 150/109; PULSE 84; RESP 18; O2SAT 94
--- NOTE | 2022-09-02 13:18 | PC.NURSE ---
Patient transferred from Chair to ER 8. Brakes locked on bed. No further needs voiced by patient at this time. Charge nurse notified.
--- NOTE | 2022-09-02 13:24 | ED.C_ITS ---
HPI - Psych General: Chief Complaint: Psychiatric Symptoms Stated Complaint: mhe Time Seen by Provider: 09/02/22 12:46 Source: patient Mode of arrival: ambulatory History of Present Illness: 52-year-old male presents to the emergency room with complaints of suicidal ideation. Patient states he is depressed he is seen at [facility] recently had medication changes they stopped citalopram and started another medicine but he is not sure of the name of the medicine that they had started. He is depressed as he has no one in his life he had a birthday earlier this week which seems to have worsened things. He has been hospitalized in the past for suicidal ideation both in [place] and at this hospital he says the last hospitaliza tion was approximately 1 year ago. He states he felt suicidal for last few days and is considered hanging himself MD complaint: suicidal ideation Onset (ago): day(s) Duration: constant History of same: Yes Relieving factors: none Exacerbating factors: medication Associated psychiatric symptoms: none Associated symptoms: Deny auditory hallucinations, visual hallucinations, delusions, depression, homicidal ideation, suicidal ideation or racing thoughts Treatments prior to arrival: none If self harm: admits thoughts of self harm and has plan Review of Systems Psych: Denies: depression, visual hallucinations, auditory hallucinations, suicidal ideation or homicidal ideation [facility] ED PFSH: Medical History Alcohol dependence Depression Depression with suicidal ideation Homelessness Psychiatric care Social History Smoking and tobacco status: current every day smoker cigarettes Packs smoked per day: 0.5 Years cigarettes smoked: 35 Quit status (tobacco): has tried quititng Number of times tried to quit tobacco: 3 Second hand smoke exposure: No Alcohol intake: current Physical Exam Const: GENERAL APPEARANCE: cooperative and comfortable ORIENTATION/CONSCIOUSNESS: Yes awake, Yes oriented to person, Yes oriented to place and Yes oriented to time HENMT: COMMON NORMALS: normocephalic, atraumatic and hearing grossly normal bilaterally HEAD & SCALP: normocephalic and atraumatic Resp: COMMON NORMALS: normal respiratory effort, No retractions, No use of accessory muscles and clear to auscultation bilaterally AUSCULTATION: clear to auscultation bilaterally Cardio: COMMON NORMALS: regular rate, regular rhythm and No murmurs present (Cardio) RATE: regular rate RHYTHM: regular rhythm GI: COMMON NORMALS: Soft to palpation and No hepatosplenomegaly present AUSCULTATION: Yes normoactive bowel sounds PALPATION: Yes Soft to palpation, No Tenderness to palpation present (GI), No Guarding due to palpation present (GI) and Yes No hepatosplenomegaly present : COMMON NORMALS: Yes no CVA tenderness BLADDER/KIDNEY EXAM: Yes no CVA tenderness Back/Pelvis: COMMON NORMALS: no CVA tenderness Extremity: COMMON NORMALS: normal to inspection, capillary refill normal, no clubbing, cyanosis or edema, no calf tenderness and no pedal edema Neuro: SENSORIUM/ORIENTATION: Yes oriented to person, Yes oriented to place and Yes oriented to time Psych: THOUGHT CONTENT: No delusions Skin: COMMON NORMALS: no rashes or lesions noted GENERAL SKIN EXAM: no rashes or lesions noted Course Vital Signs: Vital signs: Vital Signs Temperature 97.8 F 09/06/22 06:00 Pulse Rate 64 09/06/22 06:00 Respiratory Rate 18 09/06/22 06:00 Blood Pressure 110/73 09/06/22 06:00 Pulse Oximetry 98 09/06/22 06:00 Oxygen Delivery Me thod Room Air 09/06/22 06:00 MDM - Psych Medical Decision Making History of alcohol abuse. Worsening depression with suicidal ideation. Will admit discussed Dr. winchester orders written Medical Records I reviewed the patient's medical records. Lab Data I reviewed the patient's lab results. 09/02/22 13:30 09/02/22 13:30 Laboratory Results WBC 9.7 10^3/uL (4.0-10.0) 09/02/22 13:30 RBC 5.14 10^6/uL (4.1-5.3) 09/02/22 13:30 Hgb 14.6 g/dL (11.7-16.6) 09/02/22 13:30 Hct 43.4 % (42.0-52.0) 09/02/22 13:30 MCV 84.4 fl (80-94) 09/02/22 13:30 MCH 28.4 pg (28.0-34.0) 09/02/22 13:30 MCHC 33.6 g/dL (30.0-36.0) 09/02/22 13:30 RDW 14.4 % (12.1-15.1) 09/02/22 13:30 Plt Count 300 10^3/cmm (130-400) 09/02/22 13:30 MPV 9.7 fL (7.4-10.4) 09/02/22 13:30 Neut % (Auto) 72.8 % 09/02/22 13:30 Lymph % (Auto) 17.1 % 09/02/22 13:30 [place] % (Auto) 7.9 % 09/02/22 13:30 Eos % (Auto) 0.9 % 09/02/22 13: Baso % (Auto) 0.5 % 09/02/22: Neut # (Auto) 7.06 10^3/uL (1.8-7.7) 09/02/22 13: Lymph # (Auto) 1.7 10^3/uL (0.8-4.8) 09/02/22 13: [place] # (Auto) 0.8 10^3/uL (0.2-0.9) 09/02/22 13:30 Eos # (Auto) 0.1 10^3/uL (0.0-0.8) 09/02/22: Baso # (Auto) 0.1 10^3/uL (0.0-0.1) 09/02/22 13: Nucleated RBC % (auto) 0 % 09/02/22: Nucleated RBCs # 0.0 /100WBC 09/02/22 13:30 Sodium 140 mmol/L (136-145) 09/02/22 13:30 Potassium 4.1 mmol/L (3.5-5.1) 09/02/22 13: Chloride 102 mmol/L (98-107) 09/02/22 13: Carbon Dioxide 25 mmol/L (22-29) 09/02/22 13:30 Anion Gap 17.1 (5-19) 09/02/22 13:30 BUN 17 mg/dL (6-20) 09/02/22 13:30 Creatinine 1.0 mg/dL (0.7-1.2) 09/02/22 13: GFR Calculation 79.1 mL/min (90-130) L 09/02/22 13:30 Glucose 101 mg/dL (65-115) 09/02/22 13:30 Calculated Osmolality 292 mOsm/kg (285-295) 09/02/22 13:30 Calcium 9.7 mg/dL (8.5-10.5) 09/02/22 13:30 Total Bilirubin 0.3 mg/dL (0.15-1.2) 09/02/22 13:30 AST 23 U/L (0-40) 09/02/22 13:30 ALT 27 U/L (0-41) 09/02/22 13:30 Alkaline Phosphatase 66 U/L (40-130) 09/02/22 13:30 Total Protein 7.8 g/dL (6.6-8.7) 09/02/22 13:30 Albumin 4.6 g/dL (3.5-5.2) 09/02/22 13:30 Globulin 3.2 g/dL (1.3-4.6) 09/02/22 13:30 Salicylates < 0.3 mg/dL (3-10) L 09/02/22 13:30 Acetaminophen < 5.0 ug/mL (10-30) L 09/02/22 13:30 Discharge Plan Discharge Patient Disposition: Admitted As Inpatient Admit Provider: Jason Varner Clinical Impression: Suicidal ideation, Major depressive disorder, recurrent, Alcohol dependence Condition: Stable Coding Level of Care Code ED V[employer] for Garrett Marks
[2022-09-02 13:39] LABS: Basophils # 0.1 10^3/uL (0.0-0.1); Basophils % 0.5 %; Eosinophils # 0.1 10^3/uL (0.0-0.8); Eosinophils % 0.9 %; Hematocrit 43.4 % (42.0-52.0); Hemoglobin 14.6 g/dL (11.7-16.6); Lymphocytes # 1.7 10^3/uL (0.8-4.8); Lymphocytes % 17.1 %; Mean Corpuscular HGB Conc 33.6 g/dL (30.0-36.0); Mean Corpuscular Hemoglobin 28.4 pg (28.0-34.0); Mean Corpuscular Volume 84.4 fl (80-94); Mean Platelet Volume 9.7 fL (7.4-10.4); Monocytes # 0.8 10^3/uL (0.2-0.9); Monocytes % 7.9 %; Neutrophils # 7.06 10^3/uL (1.8-7.7); Neutrophils % 72.8 %; Nucleated Red Blood Cells % 0 %; Platelet Count 300 10^3/cmm (130-400); Red Blood Count 5.14 10^6/uL (4.1-5.3); Red Cell Distribution Width 14.4 % (12.1-15.1); White Blood Count 9.7 10^3/uL (4.0-10.0)
--- NOTE | 2022-09-02 13:41 | PC.PHAR ---
pt state he takes care of his own medications-pt states is no longer taking olanzapine 5mg qd prn filled 08/10/22 30d/s-mirtazapine 30mg hs filled 08/10/22 30d/s-pt states is taking 20mg qam of vortioxetine written 08/30/22 ext shows last filled 10mg daily 08/20/22 15d/s-
[2022-09-02 13:57] LABS: Acetaminophen < 5.0 ug/mL (10-30); Alanine Aminotransferase 27 U/L (0-41); Albumin Level 4.6 g/dL (3.5-5.2); Alkaline Phosphatase 66 U/L (40-130); Anion Gap 17.1 (5-19); Aspartate Amino Transferase 23 U/L (0-40); Blood Urea Nitrogen 17 mg/dL (6-20); Calcium 9.7 mg/dL (8.5-10.5); Carbon Dioxide 25 mmol/L (22-29); Chloride 102 mmol/L (98-107); Globulin 3.2 g/dL (1.3-4.6); Glomerular Filtration Rate 79.1 mL/min (90-130); Glucose 101 mg/dL (65-115); Osmolality Calculated 292 mOsm/kg (285-295); Potassium 4.1 mmol/L (3.5-5.1); Salicylate < 0.3 mg/dL (3-10); Sodium 140 mmol/L (136-145); Total Bilirubin 0.3 mg/dL (0.15-1.2); Total Protein 7.8 g/dL (6.6-8.7)
[2022-09-02 15:48] VITALS: BP 150/109; PULSE 84; RESP 18; O2SAT 94
[2022-09-02 16:57] VITALS: BP 150/97; PULSE 96; RESP 18; TEMP 36.9; O2SAT 92
[2022-09-02 21:49] VITALS: BP 151/84; PULSE 76; RESP 15; TEMP 36.7; O2SAT 98
[2022-09-02] MEDS: latanoprost 0.005% Op Soln 2.5 mL Btl 1 DROP EYE-BOTH (21:54)
[2022-09-02] MEDS: gabapentin 300 mg Capsule PO (21:56)
[2022-09-03 06:00] VITALS: RESP 15
[2022-09-03] MEDS: gabapentin 300 mg Capsule PO ×4 (08:06→21:33)
[2022-09-03] MEDS: buPROPion XL (24 HR) 300 mg Tablet PO (08:11)
[2022-09-03] MEDS: nicotine 21 mg Patch 1 PATCH TRANSDERMA (09:03)
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
[2022-09-03] MEDS: diclofenac 75 mg DR Tablet PO ×2 (09:51→21:33)
[2022-09-03 14:00] VITALS: BP 118/77; PULSE 75; RESP 20; TEMP 36.6; O2SAT 98
[2022-09-03] MEDS: latanoprost 0.005% Op Soln 2.5 mL Btl 1 DROP EYE-BOTH (21:34)
[2022-09-03 22:00] VITALS: BP 127/84; PULSE 70; RESP 17; TEMP 36.7; O2SAT 95
[2022-09-04 06:00] VITALS: BP 107/74; PULSE 66; RESP 16; TEMP 36.6; O2SAT 95
[2022-09-04] MEDS: diclofenac 75 mg DR Tablet PO ×2 (09:32→22:29)
[2022-09-04] MEDS: buPROPion XL (24 HR) 300 mg Tablet PO (09:33)
[2022-09-04] MEDS: gabapentin 300 mg Capsule PO ×4 (09:33→22:29)
[2022-09-04] MEDS: nicotine 21 mg Patch 1 PATCH TRANSDERMA (10:41)
[2022-09-04 14:00] VITALS: BP 106/72; PULSE 72; RESP 18; TEMP 36.6; O2SAT 96
--- NOTE | 2022-09-04 17:56 | W.PM.NPUPNS ---
Subjective NPU Subjective: Patient is a 52 old male admitted with suicidal ideation with a plan with worsening depression stemming from recent medication changes. He had reported an extended history of recent depression and PTSD related symptoms. He reported continued trauma related stress. He had reported having tried multiple medications for the treatment of depression and information had been given to him regarding other modalities of treatment including TMS or Spravato for refractory depression. He had reported low energy and he had continued to isolate himself. He had reported a history of difficulties tolerating other antidepressants with reports of sexual side effects previously on Effexor. He had reported not having recently been engaged in psychotherapy and stated that it might be helpful for managing his mood and chronic anxiety. He had been able to attend groups yesterday. Mental Status Exam MSE Comments: This is well-nourished, well-developed white male in hospital scrubs with poor grooming and intermittent eye contact. No abnormal movements except for moderate psychomotor retardation. Cooperative with exam in no acute distress. Speech was normal rate, rhythm and volume. Mood described as depressed., His affect was flat and mood congruent.. Thought process organized. Thought contact: He endorsed suicidal ideation with no plan. He denied any homicidal ideation., there were no delusions reported or noted, patient denied auditory or visual hallucinations. Attention and concentration appeared intact and memory appeared reliable but none were formally tested. Patient is alert and oriented times three. Insight was poor. Judgment and impulse control appears impaired. Vitals/I&O/Wt Last Vital Signs Temp 97.9 F 09/04/22 14:00 Pulse 72 09/04/22 14:00 Resp 18 09/04/22 14:00 BP 106/72 09/04/22 14:00 Pulse Ox 96 09/04/22 14:00 O2 Del Method Room Air 09/04/22 06:00 Data NPU 09/02/22 13:30 09/02/22 13:30 A&P Assessment and plan (1) Major depressive disorder, recurrent: Qualifiers: Active/Remission status: currently active Major depression episode severity: severe Psychotic features: without psychotic features Qualified Code(s): F33.2 - Major depressive disorder, recurrent severe without psychotic features (2) Alcohol dependence: (3) Suicidal ideation: (4) Borderline personality disorder: (5) PTSD (post-traumatic stress disorder): Plan This is a 52-year-old male with depression, PTSD, borderline personality disorder and alcohol dependence admitted with suicidal ideation in the context of a recent medication change who is unable to contract for safety at this time. Plan: 1. Continue Trintellix at 20mg daily. Continue Buproprion xl 300mg in am, 2. Continue every 15 minute checks for safety. 3. Encourage individual, group and milieu therapies. 4. Encourage sober living treatment after discharge at the highest level of care to which he is willing to commit. 5. [facility] protocol Involuntary Hold Information 96 Hour Hold: 96 Hour Involuntary Admission: No 96 Hour Hold Ending Date: 07/03/21 96 Hour Hold Ending Time: 18:20 Attestations NPU Medical Necessity Statement*: Inpatient hospitalization is medically necessary and deemed to be clinically appropriate at this time. We will monitor initiate medications and make changes as indicated. He will be in the hospital for over 2 midnights. His likely length of stay is 4 to 6 days. Coding Level of Care Code Acute Code for [facility] Fwd Diagnoses Major depressive disorder, recurrent F33.2 Active/Remission status: currently active Major depression episode severity: severe Psychotic features: without psychotic features Alcohol dependence F10.20 Suicidal ideation R45.851 Borderline personality disorder F60.3 PTSD (post-traumatic stress disorder) F43.10
[2022-09-04 22:00] VITALS: BP 122/78; PULSE 68; RESP 17; TEMP 36.7; O2SAT 98
[2022-09-04] MEDS: latanoprost 0.005% Op Soln 2.5 mL Btl 1 DROP EYE-BOTH (22:28)
[2022-09-05 06:00] VITALS: BP 134/91; PULSE 65; RESP 14; TEMP 36.5; O2SAT 96
[2022-09-05] MEDS: diclofenac 75 mg DR Tablet PO ×2 (09:39→21:45)
[2022-09-05] MEDS: gabapentin 300 mg Capsule PO ×4 (09:40→21:45)
[2022-09-05] MEDS: buPROPion XL (24 HR) 300 mg Tablet PO (09:40)
[2022-09-05] MEDS: nicotine 21 mg Patch 1 PATCH TRANSDERMA (09:42)
[2022-09-05 14:00] VITALS: BP 115/79; PULSE 63; RESP 20; TEMP 36.3; O2SAT 97
--- NOTE | 2022-09-05 17:41 | W.PM.NPUPNS ---
Subjective NPU Subjective: Patient is a 52 old male admitted with suicidal ideation with a plan with worsening depression stemming from recent medication changes. He endorsed a long history of depression with multiple previous medication trials. He had reported good compliance with these medications but reported no success. He had reported feeling a little bit better on his current medication regimen. Patient was agreeable to consideration of new medication options including Spravato and transcranial magnetic stimulation as an option for targeting depression. He reported adequate sleep. He stated that he felt that he may be ready to return home as he was having less thoughts about suicide. He reports that he continued to struggle with motivation. 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 Mental Status Exam MSE Comments: This is well-nourished, well-developed white male in hospital scrubs with adequate grooming and intermittent eye contact. No abnormal movements except for mild psychomotor retardation. Cooperative with exam in no acute distress. Speech was normal rate, rhythm and volume. Mood described as depressed., His affect was less restricted today. Thought process organized. Thought contact: He endorsed suicidal ideation with no plan. He denied any homicidal ideation., there were no delusions reported or noted, patient denied auditory or visual hallucinations. Attention and concentration appeared intact and memory appeared reliable but none were formally tested. Patient is alert and oriented times three. Insight was improving.. Judgment and impulse control appears to be better. Vitals/I&O/Wt Last Vital Signs Temp 97.4 F L 09/05/22 14:00 Pulse 63 09/05/22 14:00 Resp 20 H 09/05/22 14:00 BP 115/79 09/05/22 14:00 Pulse Ox 97 09/05/22 14:00 O2 Del Method Room Air 09/05/22 06:00 Weight last 48 hrs Weight 108.862 kg Data NPU 09/02/22 13:30 09/02/22 13:30 A&P Assessment and plan (1) Major depressive disorder, recurrent: Qualifiers: Active/Remission status: currently active Major depression episode severity: severe Psychotic features: without psychotic features Qualified Code(s): F33.2 - Major depressive disorder, recurrent severe without psychotic features (2) Alcohol dependence: (3) Suicidal ideation: (4) Borderline personality disorder: (5) PTSD (post-traumatic stress disorder): Plan This is a 52-year-old male with depression, PTSD, borderline personality disorder and alcohol dependence admitted with suicidal ideation in the context of a recent medication change who is unable to contract for safety at this time. Plan: 1. Continue Trintellix at 20mg daily. Continue Buproprion xl 300mg in am, 2. Continue every 15 minute checks for safety. 3. Encourage individual, group and milieu therapies. 4. Encourage sober living treatment after discharge at the highest level of care to which he is willing to commit. 5. D/C [facility] protocol 6. Likely discharge tommorow. Involuntary Hold Information 96 Hour Hold: 96 Hour Involuntary Admission: No 96 Hour Hold Ending Date: 07/03/21 96 Hour Hold Ending Time: 18:20 Attestations U Medical Necessity Statement*: Inpatient hospitalization is medically necessary and deemed to be clinically appropriate at this time. We will monitor initiate medications and make changes as indicated. H His likely length of stay is 2-3 days. Coding Level of Care Code Acute Code for [facility] Fwd Diagnoses Major depressive disorder, recurrent F33.2 Active/Remission status: currently active Major depression episode severity: severe Psychotic features: without psychotic features Alcohol dependence F10.20 Suicidal ideation R45.851 Borderline personality disorder F60.3 PTSD (post-traumatic stress disorder) F43.10
[2022-09-05 19:52] VITALS: BP 123/84; PULSE 67; RESP 16; TEMP 36.9; O2SAT 95
[2022-09-05] MEDS: latanoprost 0.005% Op Soln 2.5 mL Btl 1 DROP EYE-BOTH (21:44)
[2022-09-06 06:00] VITALS: BP 110/73; PULSE 64; RESP 18; TEMP 36.6; O2SAT 98
[2022-09-06] MEDS: buPROPion XL (24 HR) 300 mg Tablet PO (09:07)
[2022-09-06] MEDS: gabapentin 300 mg Capsule PO ×2 (09:07→13:21)
[2022-09-06] MEDS: nicotine 21 mg Patch 1 PATCH TRANSDERMA (10:31)
[2022-09-06] MEDS: diclofenac 75 mg DR Tablet PO (11:12)
[2022-09-06 14:00] VITALS: BP 130/86; PULSE 67; RESP 18; TEMP 36.5; O2SAT 96
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
[2022-09-06 16:09] VITALS: BP 130/86; PULSE 67; RESP 18; TEMP 36.5; O2SAT 96
== END 2022-09-06 16:48 | disposition home or self-care (01) | DRG 885 ==
LOC: ER 13:57 → NP 15:15
PROVIDERS: Admitting Provider Psychiatry & Neurology Psychiatry; Emergency Provider Family Medicine; PCP Family Medicine; Visit Provider Psychiatry & Neurology Psychiatry
DX: F32.2 Major depressive disorder, single episode, severe without psychotic features (principal); R45.851 Suicidal ideations; F60.3 Borderline personality disorder; F43.10 Post-traumatic stress disorder, unspecified; F10.20 Alcohol dependence, uncomplicated; Z91.51 Personal history of suicidal behavior; F17.210 Nicotine dependence, cigarettes, uncomplicated; Z59.01 Sheltered homelessness
CPT/HCPCS: 36415; 80053; 80307; 85025; 97150; 97165; 99285

== ENCOUNTER 2022-09-09 10:33 | Outpatient (CLI) | payer OTHER, MEDICAID, SELFPAY ==
--- NOTE | 2022-09-09 10:49 | MR_ITS ---
WS: [id number] MRI LEFT KNEE NONCONTRAST TECHNIQUE: Axial PD, coronal PD fat sat, coronal PD, sagittal PD, and sagittal PD fat-sat images obta ined. CLINICAL INFORMATION: L KNEE PAIN COMPARISON: None. FINDINGS: Distal quadriceps and patella tendons are intact. Normal ACL and PCL. Small suprapatellar effusion. C hronic thinning of the medial and lateral meniscus. No acute appearing meniscal tears. Grade III chondromalacia patella. No subchondral edema. Medial and lateral patellar retinacula appear intact. Normal popliteal fossa. Medial and lateral collateral ligaments are intact. Normal tibial pl ateau. Normal popliteus. Normal popliteal fossa. MR/MR knee LT wo con* [id number] IMPRESSION: 1. Normal ACL and PCL. 2. Normal medial and lateral meniscus. No acute appearing meniscal tears. Mild chronic thinning 3. Small suprapatellar effusion. 4. Grade III chondromalacia patella. No subchondral edema. 5. Normal medial and lateral collateral ligaments. 6. Grade II chondromalacia in the medial and lateral joint compartments with m ild to moderate joint space narrowing. Outbridge grading: grade II: blister-like swelling/fraying of articular cartila ge extending to surface
== END 2022-09-09 10:34 | disposition home or self-care (01) ==
LOC: RAD 10:38
PROVIDERS: PCP Family Medicine; Visit Provider Family Medicine
DX: M25.462 Effusion, left knee (principal); M22.42 Chondromalacia patellae, left knee
CPT/HCPCS: 73721

== ENCOUNTER 2022-12-28 15:17 | Inpatient (IN) | payer MEDICAID, SELFPAY ==
[2022-12-28 15:23] VITALS: BP 141/97; PULSE 112; RESP 16; TEMP 36.7; O2SAT 94; BMI 29.9
[2022-12-28 16:13] LABS: Basophils # 0.1 10^3/uL (0.0-0.1); Basophils % 0.7 %; Eosinophils # 0.3 10^3/uL (0.0-0.8); Eosinophils % 1.9 %; Hematocrit 46.4 % (42.0-52.0); Hemoglobin 15.6 g/dL (11.7-16.6); Lymphocytes % 22.1 %; Mean Corpuscular HGB Conc 33.6 g/dL (30.0-36.0); Mean Corpuscular Hemoglobin 29.4 pg (28.0-34.0); Mean Corpuscular Volume 87.4 fl (80-94); Mean Platelet Volume 10.4 fL (7.4-10.4); Monocytes % 7.6 %; Neutrophils # 8.97 10^3/uL (1.8-7.7); Neutrophils % 67.2 %; Nucleated Red Blood Cells % 0 %; Platelet Count 238 10^3/cmm (130-400); Red Blood Count 5.31 10^6/uL (4.1-5.3); Red Cell Distribution Width 15.6 % (12.1-15.1); White Blood Count 13.4 10^3/uL (4.0-10.0)
[2022-12-28 16:33] LABS: Alanine Aminotransferase 83 U/L (0-41); Albumin Level 4.5 g/dL (3.5-5.2); Alkaline Phosphatase 70 U/L (40-130); Anion Gap 22.8 (5-19); Aspartate Amino Transferase 85 U/L (0-40); Blood Urea Nitrogen 15 mg/dL (6-20); Calcium 9.2 mg/dL (8.5-10.5); Carbon Dioxide 21 mmol/L (22-29); Chloride 100 mmol/L (98-107); Globulin 2.5 g/dL (1.3-4.6); Glomerular Filtration Rate 64.1 mL/min (90-130); Glucose 96 mg/dL (65-115); Osmolality Calculated 291 mOsm/kg (285-295); Potassium 3.8 mmol/L (3.5-5.1); Sodium 140 mmol/L (136-145); Total Bilirubin 0.5 mg/dL (0.15-1.2)
[2022-12-28 16:35] LABS: Acetaminophen < 5.0 ug/mL (10-30); Salicylate < 0.3 mg/dL (3-10)
[2022-12-28 16:37] LABS: Alcohol Level 318 mg/dL (0-10)
--- NOTE | 2022-12-28 16:44 | PC.PHAR ---
PT STATES HE TAKES CARE OF HIS OWN MEDICATIONS-(RX ON HOLD @ [facility] FOR TRINTELLIX 5MG DAILY FROM 12/14/22 PT STATES ONLY TAKING 20MG DAILY FILLED ON 12/14/22 30D/S-
--- NOTE | 2022-12-28 16:53 | ED.C_ITS ---
HPI - Psych General: Chief Complaint: Psychiatric Symptoms Stated Complaint: SI Time Seen by Provider: 12/28/22 15:41 History of Present Illness: Presents to the ER with suicidal ideation. He patient has a plan. Patient got take an ice pick and stab himself. Patient admits to having multiple suicide attempts in the past. Patient midst to drinking heavy today. Patient admits th at he probably is an alcoholic but does not go through withdrawals when he does not drink for for 5 days. Review of Systems General: Reports: 10 or more systems reviewed and unremarkable except in HPI and below PFSH ED PFSH: Medical History Alcohol dependence Depression Depression with suicidal ideation Homelessness Psychiatric care Social History Smoking and tobacco status: current every day smoker cigarettes Packs smoked per day: 0.5 Years cigarettes smoked: 35 Quit status (tobacco): has tried quititng Number of times tried to quit tobacco: 3 Second hand smoke exposure: No Alcohol intake: current Substance/Drug Use: never Physical Exam Const: COMMON NORMALS: no acute distress, average body habitus, patient oriented x3, no limitations, healthy appearing, alert and well nourished HENMT: COMMON NORMALS: normocephalic, hearing grossly normal bilaterally, external ears normal, Normal external nose present and moist oral mucous me mbranes HEAD & SCALP: normocephalic NOSE: Normal external nose present EXTERNAL EAR: Yes external ears normal Neck/C-Spine: COMMON NORMALS: full ROM, no lymphadenopathy, supple, no meningeal signs, no JVD and Thyroid normal THYROID: Thyroid normal Chest: COMMONS NORMALS: normal inspection of the chest and normal palpation of entire chest wall Resp: COMMON NORMALS: normal respiratory effort, No retractions, No use of accessory muscles and clear to auscultation bilaterally AUSCULTATION: clear to auscultation bilaterally Cardio: COMMON NORMALS: no JVD, regular rate, S1 normal heart sound present, S2 normal heart sound present, No gallops present (Cardio), No clicks present (Cardio), No murmurs present (Cardio) and No rub (Cardio) RATE: regular rate HEART SOUNDS: S1 normal heart sound present and S2 normal heart sound present GI: COMMON NORMALS: Normal to inspection, nondistended, normoactive bowel sounds present, Soft to palpation, non-tender, No hepatosplenomegaly present and no masses PALPATION: Yes Soft to palpation and Yes No hepatosplenomegaly present : COMMON NORMALS: Yes no CVA tenderness BLADDER/KIDNEY EXAM: Yes no CVA tenderness Back/Pelvis: COMMON NORMALS: no CVA tenderness Neuro: COMMON NORMALS: patient oriented x3 SENSORIUM/ORIENTATION: Yes alert MENINGEAL SIGNS: Yes no meningeal signs Course Vital Signs: Vital signs: Vital Signs Temperature 98.0 F 12/28/22 15:23 Pulse Rate 112 H 12/28/22 15:23 Respiratory Rate 16 12/28/22 15:23 Blood Pressure 141/97 12/28/22 15:23 Pulse Oximetry 94 12/28/22 15:23 Oxygen Delivery Me thod Room Air 12/28/22 15:23 MDM - Psych Medical Decision Making Patient presents to the ER with complaints of suicidal ideation with plan. Patient midst to being alcoholic and drinking heavily today. Physical exam was performed lab work was obtained Dr. Varner was consulted who agreed to place the patient in [facility] for further evaluation and treatment. Differential Diagnosis Likely suicidal ideation; Unlikely acute psychosis, chronic schizophrenia, bipolar disorder, depression, drug-induced psychotic disorder or acute anxiety Medical Records I reviewed the patient's medical records. Lab Data I reviewed the patient's lab results. 12/28/22 15:55 12/28/22 15:55 Laboratory Results WBC 13.4 10^3/uL (4.0-10.0) H 12/28/22 15:55 RBC 5.31 10^6/uL (4.1-5.3) H 12/28/22 15:55 Hgb 15.6 g/dL (11.7-16.6) 12/28/22 15:55 Hct 46.4 % (42.0-52.0) 12/28/22 15:55 MCV 87.4 fl (80-94) 12/28/22 15:55 MCH 29.4 pg (28.0-34.0) 12/28/22 15:55 MCHC 33.6 g/dL (30.0-36.0) 12/28/22 15:55 RDW 15.6 % (12.1-15.1) H 12/28/22 15:55 Plt Count 238 10^3/cmm (130-400) 12/28/22 15:55 MPV 10.4 fL (7.4-10.4) 12/28/22 15:55 Neut % (Auto) 67.2 % 12/28/22 15:55 Lymph % (Auto) 22.1 % 12/28/22 15:55 [place] % (Auto) 7.6 % 12/28/22 15:55 Eos % (Auto) 1.9 % 12/28/22 15:55 Baso % (Auto) 0.7 % 12/28/22 15:55 Neut # (Auto) 8.97 10^3/uL (1.8-7.7) H 12/28/22 15:55 Lymph # (Auto) 3.0 10^3/uL (0.8-4.8) 12/28/22 15:55 [place] # (Auto) 1.0 10^3/uL (0.2-0.9) H 12/28/22 15:55 Eos # (Auto) 0.3 10^3/uL (0.0-0.8) 12/28/22 15:55 Baso # (Auto) 0.1 10^3/uL (0.0-0.1) 12/28/22 15:55 Nucleated RBC % (auto) 0 % 12/28/22 15:55 Nucleated RBCs # 0.0 /100WBC 12/28/22 15:55 Sodium 140 mmol/L (136-145) 12/28/22 15:55 Potassium 3.8 mmol/L (3.5-5.1) 12/28/22 15:55 Chloride 100 mmol/L (98-107) 12/28/22 15:55 Carbon Dioxide 21 mmol/L (22-29) L 12/28/22 15:55 Anion Gap 22.8 (5-19) H 12/28/22 15:55 BUN 15 mg/dL (6-20) 12/28/22 15:55 Creatinine 1.2 mg/dL (0.7-1.2) 12/28/22 15:55 GFR Calculation 64.1 mL/min (90-130) L 12/28/22 15:55 Glucose 96 mg/dL (65-115) 12/28/22 15:55 Calculated Osmolality 291 mOsm/kg (285-295) 12/28/22 15:55 Calcium 9.2 mg/dL (8.5-10.5) 12/28/22 15:55 Total Bilirubin 0.5 mg/dL (0.15-1.2) 12/28/22 15:55 AST 85 U/L (0-40) H 12/28/22 15:55 ALT 83 U/L (0-41) H 12/28/22 15:55 Alkaline Phosphatase 70 U/L (40-130) 12/28/22 15:55 Total Protein 7.0 g/dL (6.6-8.7) 12/28/22 15:55 Albumin 4.5 g/dL (3.5-5.2) 12/28/22 15:55 Globulin 2.5 g/dL (1.3-4.6) 12/28/22 15:55 Urine Color Brit (Yellow) 12/28/22 16:05 Urine Appearance Hazy (CLEAR) A 12/28/22 16:05 Urine pH 6 (5-7) 12/28/22 16:05 Ur Specific [place] 1.020 (1.005-1.030) 12/28/22 16:05 Urine Protein 1+ (Negative) H 12/28/22 16:05 Urine Glucose (UA) Norm (Normal) 12/28/22 16:05 Urine Ketones 2+ (Negative) H 12/28/22 16:05 Urine Blood 2+ (Negative) H 12/28/22 16:05 Urine Nitrate Negative (Negative) 12/28/22 16:05 Urine Bilirubin 1+ (Negative) H 12/28/22 16:05 Urine Urobilinogen 4 mg/dL (Negative) H 12/28/22 16:05 Ur Leukocyte Esterase Negative (Negative) 12/28/22 16:05 Urine RBC 5-10 /hpf (0-2) H 12/28/22 16:05 Urine WBC 0-4 /hpf (0-5) H 12/28/22 16:05 Ur Squamous Epith Cells 0-4 /hpf (0-5) H 12/28/22 16:05 Amorphous Sediment 2+ /hpf 12/28/22 16:05 Urine Bacteria Trace /hpf (NONE) 12/28/22 16:05 Hyaline Casts 0-4 /lpf H 12/28/22 16:05 Urine Mucus 4+ /hpf 12/28/22 16:05 Salicylates < 0.3 mg/dL (3-10) L 12/28/22 15:55 Urine Opiates Screen Negative ng/mL (Negative) 12/28/22 16:05 Acetaminophen < 5.0 ug/mL (10-30) L 12/28/22 15:55 Ur Barbiturates Screen Negative ng/mL (Negative) 12/28/22 16:05 Ur Phencyclidine Scrn Negative ng/mL (Negative) 12/28/22 16:05 Ur Amphetamines Screen Negative ng/mL (Negative) 12/28/22 16:05 U Benzodiazepines Scrn Negative ng/mL (Negative) 12/28/22 16:05 Urine Cocaine Screen Negative ng/mL (Negative) 12/28/22 16:05 U Marijuana (THC) Screen Negative ng/mL (Negative) 12/28/22 16:05 Ethyl Alcohol 318 mg/dL (0-10) H* 12/28/22 15:55 Discharge Plan Discharge Patient Disposition: Admitted As Inpatient Clinical Impression: Suicidal ideation, Alcohol intoxication Condition: Stable Prescriptions: No Action Trintellix 5 mg tablet 5 mg PO DAILY Qty: 30 0RF Rx Instructions: (RX ON HOLD @ [facility] FROM 12/14/22 PT STATES ONLY TAKING 20MG 12/28/22) Take one tablet daily with the 20 mg dose vortioxetine 20 mg tablet 20 mg PO QAM Qty: 30 0RF gabapentin 300 mg capsule 300 mg PO QID Qty: 120 0RF Rx Instructions: at least 4 hours apart bupropion HCl [Wellbutrin XL] 300 mg tablet extended release 24 hr 300 mg PO QAM 30 Days Qty: 30 0RF timolol maleate 0.5 % drops 1 drp ophthalmic (eye) BID diclofenac sodium 75 mg Tablet,Delayed Release (Dr/Ec) 75 mg PO BID Referrals: Kevin Rubio MD [Primary Care Provider] - Coding Level of Care Code ED [employer] for Garrett Marks
[2022-12-28 16:55] LABS: Amphetamines Screen Urine Negative (Negative); Barbiturates Screen Urine Negative (Negative); Benzodiazepines Screen Urine Negative (Negative); Cocaine Screen Urine Negative (Negative); Opiate Screen Urine Negative (Negative); PCP Screen Urine Negative (Negative); THC Screen Urine Negative (Negative)
[2022-12-28 16:57] LABS: Urine Color Amber (Yellow)
[2022-12-28 16:58] LABS: Add Urine Microscopic? YES; Bilirubin Urine 1+ (Negative); Blood Urine 2+ (Negative); Glucose Urine UA Norm (Normal); Ketones Urine 2+ (Negative); Leukocyte Esterase Urine Negative (Negative); Nitrate Urine Negative (Negative); Protein Urine 1+ (Negative); Urine Appearance Hazy (CLEAR); Urobilinogen Urine 4 mg/dL (Negative); pH Urine 6 (5-7)
[2022-12-28 16:59] LABS: Add Urine Culture? No; Amorphous Sediment Urine 2+ /hpf; Bacteria Urine TRACE /hpf; Hyaline Casts Urine 0-4 /lpf; Mucus Urine 4+ /hpf; Squamous Epithelial Cell Urine 0-4 /hpf (0-5); WBC Urine 0-4 /hpf (0-5)
[2022-12-28 18:29] VITALS: BP 141/89; PULSE 108; RESP 16; TEMP 36.9; O2SAT 95
--- NOTE | 2022-12-29 00:26 | PC.NURSE ---
PT CAME TO NURSES STATION TO GET A DRINK AND PT SCORED 21 ON CIWA. PT GIVEN TYLENOL, ZOFRAN AND ATIVAN PER PROTOCOL. PT RATES HEADACHE 7/10. 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
[2022-12-29] MEDS: LORazepam 2 mg Tablet PO ×2 (00:27→01:29)
[2022-12-29] MEDS: acetaminophen 325 mg Tablet 650 MG PO (00:27)
[2022-12-29] MEDS: ondansetron 4 MG Tablet PO (00:27)
[2022-12-29 06:00] VITALS: BP 112/74; PULSE 90; RESP 20; TEMP 36.9; O2SAT 92
[2022-12-29] MEDS: buPROPion XL (24 HR) 300 mg Tablet PO (06:12)
[2022-12-29] MEDS: VORTIOXETINE 20 MG 20 EACH PO (06:12)
[2022-12-29] MEDS: multivitamin therapeutic Tablet 1 TAB PO (08:40)
[2022-12-29] MEDS: thiamine 100 mg Tablet PO (08:40)
[2022-12-29] MEDS: folic acid 1 mg Tablet PO (08:40)
[2022-12-29] MEDS: gabapentin 300 mg Capsule PO ×4 (08:40→20:59)
[2022-12-29] MEDS: diclofenac 75 mg DR Tablet PO ×2 (08:40→17:56)
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
[2022-12-29] MEDS: timolol 0.5% Op Soln 5 mL Btl 1 DROP EYE-BOTH ×2 (09:41→17:57)
[2022-12-29] MEDS: nicotine 21 mg Patch 1 PATCH TRANSDERMA (13:30)
[2022-12-29 13:37] VITALS: BP 133/95; PULSE 89; RESP 17; TEMP 36.7; O2SAT 93
--- NOTE | 2022-12-29 19:13 | PC.NURSE ---
Patient notified nurses that he was having bloody diarrhea. Dr. Varner notified.
[2022-12-29] MEDS: ibuprofen 600 mg Tablet PO (21:10)
[2022-12-29 21:36] VITALS: BP 113/83; PULSE 94; RESP 20; TEMP 36.9; O2SAT 94
[2022-12-29] MEDS: hyDROXYzine 25 mg Capsule 50 MG PO (22:58)
[2022-12-29] MEDS: trazodone 50 mg Tablet PO (22:59)
--- NOTE | 2022-12-29 23:48 | PC.NURSE ---
PT CAME TO NURSES STATION STATING MY ANXIETY MEDS ARE NOT WORKING. CHART REVIEWED AND PT WAS INFORMED HE HAS NOT BEEN GIVEN ANYTHING FOR ANXIETY SINCE LAST NIGHT ABOUT 100 AM. PT WAS GIVEN VISTARIL 50 MG FOR ANXIETY AND TRAZODONE 50 MG PO ORDERED. PT THEN WENT TO ROOM AND LAID DOWN. NO DISTRESS IS NOTED.
[2022-12-30 06:00] VITALS: RESP 18
[2022-12-30] MEDS: gabapentin 300 mg Capsule PO ×4 (09:07→21:23)
[2022-12-30] MEDS: timolol 0.5% Op Soln 5 mL Btl 1 DROP EYE-BOTH ×2 (09:08→18:14)
[2022-12-30] MEDS: thiamine 100 mg Tablet PO (09:08)
[2022-12-30] MEDS: buPROPion XL (24 HR) 300 mg Tablet PO (09:08)
[2022-12-30] MEDS: diclofenac 75 mg DR Tablet PO ×2 (09:08→18:12)
[2022-12-30] MEDS: multivitamin therapeutic Tablet 1 TAB PO (09:08)
[2022-12-30] MEDS: folic acid 1 mg Tablet PO (09:08)
[2022-12-30] MEDS: VORTIOXETINE 20 MG 20 EACH PO (09:25)
[2022-12-30] MEDS: ibuprofen 600 mg Tablet PO ×3 (09:42→21:27)
[2022-12-30] MEDS: nicotine 4 mg lozenge MUCOUS MEM ×2 (10:14→13:13)
--- NOTE | 2022-12-30 12:01 | P.NPUPN_ITS ---
Subjective NPU Subjective: Patient presented today reporting that he is doing okay and is fairly focused on discharge. He reports that he is tolerating the changes/resumption of his medication. He is voluntary and was leaning towards wanting to leave. We discussed the importance of him allowing us to work with the social work team on the psychosocial challenges including housing which it appears he may be able to return to [place] but not until tomorrow. He eventually was willing to wait till tomorrow. We talked about difficulties with delayed gratification and addiction. He had some complaints about pain. Mental Status Exam MSE Comments: This is well-nourished, well-developed white male in hospital scrubs with limited grooming and intermittent eye contact. No abnormal movements except for mild psychomotor retardation and a mild tremor. Cooperative with exam in no acute distress. Speech was normal rate, rhythm and prosody. Mood described as getting better., His affect was flat and slightly subdued. Thought process was linear and organized. Thought contact: He denied suicidal or homicidal ideation ., there were no delusions reported or noted, patient denied auditory or visual hallucinations. Attention and concentration appeared intact and memory appeared mostly reliable but none were formally tested. Patient is alert and oriented to person, place time and situation. Insight was poor. Judgment and impulse control appears impaired. Vitals/I&O/Wt Last Vital Signs Temp 98.4 F 12/29/22 21:36 Pulse 94 12/29/22 21:36 Resp 18 12/30/22 06:00 BP 113/83 12/29/22 21:36 Pulse Ox 94 12/29/22 21:36 O2 Del Method Room Air 12/29/22 21:36 Weight last 48 hrs Weight 97.522 kg Data NPU 12/28/22 15:55 12/28/22 15:55 A&P Assessment and plan (1) Major depressive disorder, recurrent: Qualifiers: Active/Remission status: currently active Major depression episode severity: severe Psychotic features: without psychotic features Qualified Code(s): F33.2 - Major depressive disorder, recurrent severe without psychotic features (2) Alcohol dependence: (3) Borderline personality disorder: (4) Suicidal ideation: (5) PTSD (post-traumatic stress disorder): Plan This is a 52-year-old male with depression, PTSD, borderline personality disorder and alcohol dependence admitted with suicidal ideation in the context of a recent medication change who is now able to contract for safety. Plan: 1. Restarted medications including Trintellix at 20mg daily, Buproprion xl 300mg in am and Gabapentin as prescribed. 2. Continue every 15 minute checks for safety. 3. Encourage individual, group and milieu therapies. 4. Encourage sober living treatment after discharge at the highest level of care to which he is willing to commit. 5. [facility] protocol 6. Given voluntary status and low risk of credible lethality we will consider discharge tomorrow. Involuntary Hold Information 96 Hour Hold: 96 Hour Involuntary Admission: No Attestations NPU Medical Necessity Statement*: Inpatient hospitalization is medically necessary and deemed to ?be ?the clinically appropriate intervention ?at this time.? We will monitor/initiate medications and make changes as indicated.? The patient?s likely length of stay 1-3 days. Coding Level of Care Code Acute Code for g Fwd Diagnoses Major depressive disorder, recurrent F33.2 Active/Remission status: currently active Major depression episode severity: severe Psychotic features: without psychotic features Alcohol dependence F10.20 Borderline personality disorder F60.3 Suicidal ideation R45.851 PTSD (post-traumatic stress disorder) F43.10
[2022-12-30 14:00] VITALS: BP 119/86; PULSE 88; RESP 16; TEMP 36.8; O2SAT 95
[2022-12-30] MEDS: trazodone 50 mg Tablet PO (21:23)
[2022-12-30] MEDS: hyDROXYzine 25 mg Capsule 50 MG PO (21:23)
[2022-12-30 21:32] VITALS: BP 117/82; PULSE 69; RESP 16; TEMP 37.1; O2SAT 94
[2022-12-31 06:00] VITALS: BP 129/87; PULSE 77; RESP 16; TEMP 36.6; O2SAT 96
[2022-12-31] MEDS: ibuprofen 600 mg Tablet PO (08:40)
[2022-12-31] MEDS: haloperidol 5 mg Tablet PO (08:40)
[2022-12-31] MEDS: folic acid 1 mg Tablet PO (08:43)
[2022-12-31] MEDS: buPROPion XL (24 HR) 300 mg Tablet PO (08:43)
[2022-12-31] MEDS: multivitamin therapeutic Tablet 1 TAB PO (08:43)
[2022-12-31] MEDS: thiamine 100 mg Tablet PO (08:43)
[2022-12-31] MEDS: gabapentin 300 mg Capsule PO ×2 (08:44→12:46)
[2022-12-31] MEDS: VORTIOXETINE 20 MG 20 EACH PO (08:44)
[2022-12-31] MEDS: timolol 0.5% Op Soln 5 mL Btl 1 DROP EYE-BOTH (08:45)
--- NOTE | 2022-12-31 09:30 | PC.NURSE ---
PT AT NURSES STATION, ASSESSMENT COMPLETED. PT STATES HE WOULD LIKE SOMETHING FOR PAIN, IBUPROFEN WAS GIVEN ORDERED. WHEN THIS RN PULLED PTS AM MEDS IT WAS FOUND THAT HE TAKES DICLOFENAC, SO IT WAS HELD THIS AM. IBUPROFEN WAS ALSO DISCONTINUED DUE TO DUPLICATE NSAID THERAPY. DENIES SI/HI AND AVH AT THSI TIME. PT REPORTS INCREASED ANXIETY AND STATES THE VISTARIL MAKES HIM TO TIRED AND DOES NOT WORK, HALDOL 5 MG WAS GIVEN FOR INCREASED ANXIETY. PT IS CALM AND COOPERATIVE WITH STAFF. NO DISTRESS NOTED.
[2022-12-31] MEDS: nicotine 4 mg lozenge MUCOUS MEM (10:38)
[2022-12-31] MEDS: diclofenac 75 mg DR Tablet PO (10:41)
[2022-12-31] MEDS: OLANZapine 5 mg ODT PO (11:42)
--- NOTE | 2022-12-31 11:42 | PC.NURSE ---
Patient reporting anxiety 12/30. Patient anxious about leaving. Patient previously given Haldol but still feeling anxious. Attempts at redirection by this nurse were not successful. Administered 5mg Zyprexa to patient. will continue to monitor closely.
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
[2022-12-31 13:03] VITALS: BP 129/87; PULSE 77; RESP 16; TEMP 36.6; O2SAT 96
== END 2022-12-31 13:19 | disposition home or self-care (01) | DRG 897 ==
LOC: ER 17:04 → NP 17:28
PROVIDERS: Admitting Provider Psychiatry & Neurology Psychiatry; Emergency Provider Emergency Medicine; PCP Family Medicine; Visit Provider Psychiatry & Neurology Psychiatry
DX: F10.229 Alcohol dependence with intoxication, unspecified (principal); R45.851 Suicidal ideations; F33.9 Major depressive disorder, recurrent, unspecified; F43.10 Post-traumatic stress disorder, unspecified; F60.3 Borderline personality disorder; Z59.00 Homelessness unspecified; Z91.128 Patient's intentional underdosing of medication regimen for other reason; F17.210 Nicotine dependence, cigarettes, uncomplicated
CPT/HCPCS: 36415; 80053; 80306; 80307; 81001; 85025; 97165; 99238; 99285; Q0162

== ENCOUNTER 2023-01-13 00:44 | Emergency (ER) | payer MEDICAID, SELFPAY ==
[2023-01-13 00:47] VITALS: BP 165/102; PULSE 109; RESP 18; TEMP 37; O2SAT 97; BMI 27.8
--- NOTE | 2023-01-13 00:57 | ED.C_ITS ---
Documented by User: Gianni Uribe MD 01/13/23 00:58 HPI - Psych General: Chief Complaint: Psychiatric Symptoms Stated Complaint: SI Time Seen by Provider: 01/13/23 00:45 Source: patient, EMS and police Mode of arrival: EMS Limitations: no limitations History of Present Illness: 52-year-old male who has a history of alcohol abuse along with homelessness. He had a previous suicide attempt in the past when he attempted to shoot himself he states that tonight he has been feeling suicidal he has a plan of walking out into traffic patient was brought in by EMS and police he is voluntarily wanting to get help. Associated symptoms: Reports depression and suicidal ideation Review of Systems Const: Denies: fever(s), chills, body aches or change in appetite Eyes: Denies: blurry vision or eye discomfort ENMT: Denies: throat pain or dental pain Card: Denies: chest pain Resp: Denies: dyspnea GI: Denies: abdominal pain, nausea, vomiting or diarrhea : Denies: dysuria Musc: Denies: neck pain or back pain Skin/Breast: Denies: rash Neuro: Denies: headache(s) Psych: Reports: depression and suicidal ideation [facility] ED PFSH: Medical History Alcohol dependence Depression Depression with suicidal ideation Homelessness Major depressive disorder, recurrent, severe with psychotic symptoms Psychiatric care Social History Smoking and tobacco status: current every day smoker cigarettes Packs smoked per day: 0.5 Years cigarettes smoked: 35 Quit status (tobacco): has tried quititng Number of times tried to quit tobacco: 3 Second hand smoke exposure: No Alcohol intake: current Substance/Drug Use: never Physical Exam Const: COMMON NORMALS: no acute distress, patient oriented x3 and healthy appearing HENMT: COMMON NORMALS: normocephalic and atraumatic HEAD & SCALP: normocephalic and atraumatic Eye: COMMON NORMALS: Equal, round and reactive pupils present and EOMs intact bilaterally PUPIL: Yes Equal, round and reactive pupils present Neck/C-Spine: COMMON NORMALS: full ROM Chest: COMMONS NORMALS: normal inspection of the chest Resp: COMMON NORMALS: normal respiratory effort Cardio: COMMON NORMALS: regular rate, regular rhythm and No murmurs present (Cardio) RATE: regular rate RHYTHM: regular rhythm GI: INSPECTION: Yes normal to inspection Extremity: COMMON NORMALS: normal to inspection and full ROM Neuro: COMMON NORMALS: patient oriented x3, moves all extremities and no focal motor deficits Psych: COMMON NORMALS: mental status grossly normal, Normal thought process present and cooperative MOOD & AFFECT: Yes depressed mood THOUGHT PROCESS: Normal thought process present THOUGHT CONTENT: Yes Suicidality present Skin: COMMON NORMALS: no rashes or lesions noted and no wounds GENERAL SKIN EXAM: no rashes or lesions noted Course Vital Signs: Vital signs: Vital Signs Temperature 98.6 F 01/13/23 00:47 Pulse Rate 82 01/13/23 06:22 Respiratory Rate 17 01/13/23 06:22 Blood Pressure 151/83 01/13/23 06:22 Pulse Oximetry 95 01/13/23 06:22 Oxygen Delivery Me thod Room Air 01/13/23 00:47 MDM - Psych Lab Data 01/13/23 02:33 01/13/23 03:26 Laboratory Results WBC 12.87 10^3/uL (3.29-11.43) H 01/13/23 02:33 RBC 4.73 10^6/uL (3.85-5.65) 01/13/23 02:33 Hgb 13.50 g/dL (11.27-16.99) 01/13/23 02:33 Hct 42.0 % (37-53) 01/13/23 02:33 MCV 88.8 fl (82-101) 01/13/23 02:33 MCH 28.5 pg (27-33) 01/13/23 02:33 MCHC 32.1 g/dL (30-55) 01/13/23 02:33 RDW 15.6 % (12.1-15.1) H 01/13/23 02:33 Plt Count 343 10^3/cmm (157-399) 01/13/23 02:33 MPV 10.1 fL (7.4-10.4) 01/13/23 02:33 Neut % (Auto) 69.6 % 01/13/23 02:33 Lymph % (Auto) 19.8 % 01/13/23 02:33 [place] % (Auto) 8.3 % 01/13/23 02:33 Eos % (Auto) 1.1 % 01/13/23 02:33 Baso % (Auto) 0.7 % 01/13/23 02:33 Neut # (Auto) 8.95 10^3/uL (1.8-7.7) H 01/13/23 02:33 Lymph # (Auto) 2.6 10^3/uL (0.8-4.8) 01/13/23 02:33 [place] # (Auto) 1.1 10^3/uL (0.2-0.9) H 01/13/23 02:33 Eos # (Auto) 0.1 10^3/uL (0.0-0.8) 01/13/23 02:33 Baso # (Auto) 0.1 10^3/uL (0.0-0.1) 01/13/23 02:33 Nucleated RBC % (auto) 0 % 01/13/23 02:33 Nucleated RBCs # 0.0 /100WBC 01/13/23 02:33 Sodium 137 mmol/L (136-145) 01/13/23 03:26 Potassium 4.7 mmol/L (3.5-5.1) 01/13/23 03:26 Chloride 98 mmol/L (98-107) 01/13/23 03:26 Carbon Dioxide 22 mmol/L (22-29) 01/13/23 03:26 Anion Gap 21.7 (5-19) H 01/13/23 03:26 BUN 29 mg/dL (6-20) H 01/13/23 03:26 Creatinine 1.2 mg/dL (0.7-1.2) 01/13/23 03:26 GFR Calculation 64.1 mL/min (90-130) L 01/13/23 03:26 Glucose 97 mg/dL (65-115) 01/13/23 03:26 Calculated Osmolality 290 mOsm/kg (285-295) 01/13/23 03:26 Calcium 9.4 mg/dL (8.5-10.5) 01/13/23 03:26 Total Bilirubin 0.3 mg/dL (0.15-1.2) 01/13/23 03:26 AST 31 U/L (0-40) 01/13/23 03:26 ALT 78 U/L (0-41) H 01/13/23 03:26 Alkaline Phosphatase 84 U/L (40-130) 01/13/23 03:26 Total Protein 6.8 g/dL (6.6-8.7) 01/13/23 03:26 Albumin 4.2 g/dL (3.5-5.2) 01/13/23 03:26 Globulin 2.6 g/dL (1.3-4.6) 01/13/23 03:26 Salicylates < 0.3 mg/dL (3-10) L 01/13/23 03:26 Urine Opiates Screen Negative ng/mL (Negative) 01/13/23 02:04 Acetaminophen < 5.0 ug/mL (10-30) L 01/13/23 03:26 Ur Barbiturates Screen Negative ng/mL (Negative) 01/13/23 02:04 Ur Phencyclidine Scrn Negative ng/mL (Negative) 01/13/23 02:04 Ur Amphetamines Screen Negative ng/mL (Negative) 01/13/23 02:04 U Benzodiazepines Scrn Negative ng/mL (Negative) 01/13/23 02:04 Urine Cocaine Screen Negative ng/mL (Negative) 01/13/23 02:04 U Marijuana (THC) Screen Negative ng/mL (Negative) 01/13/23 02:04 Ethyl Alcohol < 10 mg/dL (0-10) 01/13/23 03:26 SARS-CoV-2 Ag (Rapid) negative (Negative) 01/13/23 01:09 Discharge Plan Discharge Patient Disposition: er Psychiatric Hosp Clinical Impression: Suicidal ideation, Borderline personality disorder, Social anxiety disorder Condition: Stable Prescriptions: No Action Trintellix 5 mg tablet 5 mg PO DAILY Qty: 30 0RF Rx Instructions: Take one tablet by mouth with the 20 mg dose timolol maleate 0.5 % drops 1 drp ophthalmic (eye) BID gabapentin 300 mg capsule 300 mg PO QID Qty: 120 1RF Rx Instructions: at least 4 hours apart diclofenac sodium 75 mg Tablet,Delayed Release (Dr/Ec) 75 mg PO BID 30 Days Qty: 30 1RF bupropion HCl 300 mg tablet extended release 24 hr 300 mg PO QAM 30 Days Qty: 30 1RF vortioxetine 20 mg tablet 20 mg PO QAM Qty: 30 1RF Referrals: Kevin Rubio MD [Primary Care Provider] - Patient Instructions: Opioid Safety, Pain Management Sign Out Sign Out Data: Patient Sign Out occurred on 01/13/23 at 06:15. Patient's care was discussed, and care was transferred from to Jesse Painter DO. Coding Level of Care Code ED Search Strategist for Chg Fwd Documented by User: Jesse Painter DO 01/13/23 17:38 HPI - Psych General: Chief Complaint: Psychiatric Symptoms Stated Complaint: SI Time Seen by Provider: 01/13/23 00:45 PFSH ED PFSH: Medical History Alcohol dependence Depression Depression with suicidal ideation Homelessness Major depressive disorder, recurrent, severe with psychotic symptoms Psychiatric care Social History Smoking and tobacco status: current every day smoker cigarettes Packs smoked per day: 0.5 Years cigarettes smoked: 35 Quit status (tobacco): has tried quititng Number of times tried to quit tobacco: 3 Second hand smoke exposure: No Alcohol intake: current Substance/Drug Use: never Course Vital Signs: Vital signs: Vital Signs Temperature 98.6 F 01/13/23 00:47 Pulse Rate 82 01/13/23 06:22 Respiratory Rate 17 01/13/23 06:22 Blood Pressure 151/83 01/13/23 06:22 Pulse Oximetry 95 01/13/23 06:22 Oxygen Delivery Me thod Room Air 01/13/23 00:47 MDM - Psych Medical Decision Making [facility] is excepted patient will transfer by EMS he did become somewhat agitated he was given Ativan which did help. He is on a 96-hour hold. Medical Records I reviewed the patient's medical records. Lab Data I reviewed the patient's lab results. 01/13/23 02:33 01/13/23 03:26 Laboratory Results WBC 12.87 10^3/uL (3.29-11.43) H 01/13/23 02:33 RBC 4.73 10^6/uL (3.85-5.65) 01/13/23 02:33 Hgb 13.50 g/dL (11.27-16.99) 01/13/23 02:33 Hct 42.0 % (37-53) 01/13/23 02:33 MCV 88.8 fl (82-101) 01/13/23 02:33 MCH 28.5 pg (27-33) 01/13/23 02:33 MCHC 32.1 g/dL (30-55) 01/13/23 02:33 RDW 15.6 % (12.1-15.1) H 01/13/23 02:33 Plt Count 343 10^3/cmm (157-399) 01/13/23 02:33 MPV 10.1 fL (7.4-10.4) 01/13/23 02:33 Neut % (Auto) 69.6 % 01/13/23 02:33 Lymph % (Auto) 19.8 % 01/13/23 02:33 [place] % (Auto) 8.3 % 01/13/23 02:33 Eos % (Auto) 1.1 % 01/13/23 02:33 Baso % (Auto) 0.7 % 01/13/23 02:33 Neut # (Auto) 8.95 10^3/uL (1.8-7.7) H 01/13/23 02:33 Lymph # (Auto) 2.6 10^3/uL (0.8-4.8) 01/13/23 02:33 [place] # (Auto) 1.1 10^3/uL (0.2-0.9) H 01/13/23 02:33 Eos # (Auto) 0.1 10^3/uL (0.0-0.8) 01/13/23 02:33 Baso # (Auto) 0.1 10^3/uL (0.0-0.1) 01/13/23 02:33 Nucleated RBC % (auto) 0 % 01/13/23 02:33 Nucleated RBCs # 0.0 /100WBC 01/13/23 02:33 Sodium 137 mmol/L (136-145) 01/13/23 03:26 Potassium 4.7 mmol/L (3.5-5.1) 01/13/23 03:26 Chloride 98 mmol/L (98-107) 01/13/23 03:26 Carbon Dioxide 22 mmol/L (22-29) 01/13/23 03:26 Anion Gap 21.7 (5-19) H 01/13/23 03:26 BUN 29 mg/dL (6-20) H 01/13/23 03:26 Creatinine 1.2 mg/dL (0.7-1.2) 01/13/23 03:26 GFR Calculation 64.1 mL/min (90-130) L 01/13/23 03:26 Glucose 97 mg/dL (65-115) 01/13/23 03:26 Calculated Osmolality 290 mOsm/kg (285-295) 01/13/23 03:26 Calcium 9.4 mg/dL (8.5-10.5) 01/13/23 03:26 Total Bilirubin 0.3 mg/dL (0.15-1.2) 01/13/23 03:26 AST 31 U/L (0-40) 01/13/23 03:26 ALT 78 U/L (0-41) H 01/13/23 03:26 Alkaline Phosphatase 84 U/L (40-130) 01/13/23 03:26 Total Protein 6.8 g/dL (6.6-8.7) 01/13/23 03:26 Albumin 4.2 g/dL (3.5-5.2) 01/13/23 03:26 Globulin 2.6 g/dL (1.3-4.6) 01/13/23 03:26 Salicylates < 0.3 mg/dL (3-10) L 01/13/23 03:26 Urine Opiates Screen Negative ng/mL (Negative) 01/13/23 02:04 Acetaminophen < 5.0 ug/mL (10-30) L 01/13/23 03:26 Ur Barbiturates Screen Negative ng/mL (Negative) 01/13/23 02:04 Ur Phencyclidine Scrn Negative ng/mL (Negative) 01/13/23 02:04 Ur Amphetamines Screen Negative ng/mL (Negative) 01/13/23 02:04 U Benzodiazepines Scrn Negative ng/mL (Negative) 01/13/23 02:04 Urine Cocaine Screen Negative ng/mL (Negative) 01/13/23 02:04 U Marijuana (THC) Screen Negative ng/mL (Negative) 01/13/23 02:04 Ethyl Alcohol < 10 mg/dL (0-10) 01/13/23 03:26 SARS-CoV-2 Ag (Rapid) negative (Negative) 01/13/23 01:09 Discharge Plan Discharge Patient Disposition: Xfer Psychiatric Hosp Clinical Impression: Suicidal ideation, Borderline personality disorder, Social anxiety disorder Condition: Stable Prescriptions: No Action Trintellix 5 mg tablet 5 mg PO DAILY Qty: 30 0RF Rx Instructions: Take one tablet by mouth with the 20 mg dose timolol maleate 0.5 % drops 1 drp ophthalmic (eye) BID gabapentin 300 mg capsule 300 mg PO QID Qty: 120 1RF Rx Instructions: at least 4 hours apart diclofenac sodium 75 mg Tablet,Delayed Release (Dr/Ec) 75 mg PO BID 30 Days Qty: 30 1RF bupropion HCl 300 mg tablet extended release 24 hr 300 mg PO QAM 30 Days Qty: 30 1RF vortioxetine 20 mg tablet 20 mg PO QAM Qty: 30 1RF Referrals: Kevin Rubio MD [Primary Care Provider] - Patient Instructions: Opioid Safety, Pain Management Sign Out Sign Out Data: Patient Sign Out occurred on 01/13/23 at 06:15. Patient's care was discussed, and care was transferred from to Jesse Painter DO. Coding Level of Care Code ED Search Strategist for Garrett Marks
[2023-01-13 01:31] LABS: SARS Covid-2 Antigen negative (Negative)
[2023-01-13 02:18] LABS: Amphetamines Screen Urine Negative (Negative); Barbiturates Screen Urine Negative (Negative); Benzodiazepines Screen Urine Negative (Negative); Cocaine Screen Urine Negative (Negative); Opiate Screen Urine Negative (Negative); PCP Screen Urine Negative (Negative); THC Screen Urine Negative (Negative)
[2023-01-13 02:39] LABS: Basophils # 0.1 10^3/uL (0.0-0.1); Basophils % 0.7 %; Eosinophils # 0.1 10^3/uL (0.0-0.8); Eosinophils % 1.1 %; Lymphocytes # 2.6 10^3/uL (0.8-4.8); Lymphocytes % 19.8 %; Mean Corpuscular HGB Conc 32.1 g/dL (30-55); Mean Corpuscular Hemoglobin 28.5 pg (27-33); Mean Corpuscular Volume 88.8 fl (82-101); Mean Platelet Volume 10.1 fL (7.4-10.4); Monocytes # 1.1 10^3/uL (0.2-0.9); Monocytes % 8.3 %; Neutrophils # 8.95 10^3/uL (1.8-7.7); Neutrophils % 69.6 %; Nucleated Red Blood Cells % 0 %; Platelet Count 343 10^3/cmm (157-399); Red Blood Count 4.73 10^6/uL (3.85-5.65); Red Cell Distribution Width 15.6 % (12.1-15.1); White Blood Count 12.87 10^3/uL (3.29-11.43)
--- NOTE | 2023-01-13 03:37 | ECG_ITS ---
[facility] Test Date: 2023-01-13 Pat Name: Jacobo Garsia Department: Room: Gender: Male [place]: : 1970 Requested By: Gianni Uribe Order Number: [id number] Eal MD: Alden Jeffers M.D. Measurements Intervals [place] Rate: 101 P: 95 LA: 138 QRS: 88 QRSD: 102 T: 122 QT: 333 QTc: 433 Interpretive Statements SINUS TACHYCARDIA PROBABLE LATERAL MYOCARDIAL INFARCTION , OF INDETERMINATE AGE [35 ms Q WAVE IN I/aVL/V5/V6] No previous ECG available for comparison Electronically Signed On 01-13-2023 7:50:42 CDT by Alden Jeffers M.D. [email or web address]
[2023-01-13 03:55] LABS: Alanine Aminotransferase 78 U/L (0-41); Albumin Level 4.2 g/dL (3.5-5.2); Alkaline Phosphatase 84 U/L (40-130); Anion Gap 21.7 (5-19); Aspartate Amino Transferase 31 U/L (0-40); Blood Urea Nitrogen 29 mg/dL (6-20); Calcium 9.4 mg/dL (8.5-10.5); Carbon Dioxide 22 mmol/L (22-29); Chloride 98 mmol/L (98-107); Creatinine Clr Calc Pharmacy 84.8617; Globulin 2.6 g/dL (1.3-4.6); Glomerular Filtration Rate 64.1 mL/min (90-130); Glucose 97 mg/dL (65-115); Osmolality Calculated 290 mOsm/kg (285-295); Potassium 4.7 mmol/L (3.5-5.1); Sodium 137 mmol/L (136-145); Total Bilirubin 0.3 mg/dL (0.15-1.2); Total Protein 6.8 g/dL (6.6-8.7)
[2023-01-13 03:56] LABS: Acetaminophen < 5.0 ug/mL (10-30); Alcohol Level < 10 mg/dL (0-10); Salicylate < 0.3 mg/dL (3-10)
[2023-01-13 06:22] VITALS: BP 151/83; PULSE 82; RESP 17; O2SAT 95
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
[2023-01-13] MEDS: acetaminophen 500 mg Tablet 1000 MG PO ×2 (08:19→18:39)
[2023-01-13] MEDS: buPROPion XL (24 HR) 300 mg Tablet PO (10:11)
[2023-01-13] MEDS: gabapentin 300 mg Capsule PO ×3 (10:11→21:08)
[2023-01-14 00:36] VITALS: BP 132/88; PULSE 90; RESP 18; O2SAT 94
[2023-01-14 06:35] VITALS: BP 147/87; PULSE 73; RESP 18; O2SAT 95
== END 2023-01-14 07:58 ==
PROVIDERS: Emergency Provider Emergency Medicine; PCP Family Medicine
DX: F60.3 Borderline personality disorder (principal); R45.851 Suicidal ideations; F40.10 Social phobia, unspecified
CPT/HCPCS: 36415; 80053; 80306; 80307; 85025; 87426; 93005; 99284

== ENCOUNTER 2023-02-22 15:16 | Inpatient (IN) | payer MEDICAID, SELFPAY ==
[2023-02-22 15:17] VITALS: BP 174/111; PULSE 98; RESP 17; TEMP 37; O2SAT 93; BMI 32.1
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
[2023-02-22 16:11] LABS: Basophils # 0.1 10^3/uL (0.0-0.1); Basophils % 0.6 %; Eosinophils # 0.2 10^3/uL (0.0-0.8); Eosinophils % 2.1 %; Hematocrit 42.3 % (37-53); Lymphocytes # 1.6 10^3/uL (0.8-4.8); Lymphocytes % 20.2 %; Mean Corpuscular HGB Conc 32.9 g/dL (30-55); Mean Corpuscular Hemoglobin 29.1 pg (27-33); Mean Corpuscular Volume 88.7 fl (82-101); Mean Platelet Volume 10.2 fL (7.4-10.4); Monocytes # 0.8 10^3/uL (0.2-0.9); Monocytes % 9.6 %; Neutrophils # 5.47 10^3/uL (1.8-7.7); Neutrophils % 67.3 %; Nucleated Red Blood Cells % 0 %; Platelet Count 264 10^3/cmm (157-399); Red Blood Count 4.77 10^6/uL (3.85-5.65); Red Cell Distribution Width 15.4 % (12.1-15.1); White Blood Count 8.13 10^3/uL (3.29-11.43)
[2023-02-22 16:33] VITALS: BP 152/92; PULSE 96; O2SAT 94
[2023-02-22 16:33] LABS: Alanine Aminotransferase 23 U/L (0-41); Albumin Level 4.3 g/dL (3.5-5.2); Alkaline Phosphatase 72 U/L (40-130); Anion Gap 15.6 (5-19); Aspartate Amino Transferase 17 U/L (0-40); Blood Urea Nitrogen 14 mg/dL (6-20); Calcium 9.5 mg/dL (8.5-10.5); Carbon Dioxide 26 mmol/L (22-29); Chloride 104 mmol/L (98-107); Globulin 2.4 g/dL (1.3-4.6); Glomerular Filtration Rate 79.1 mL/min (90-130); Glucose 97 mg/dL (65-115); Osmolality Calculated 292 mOsm/kg (285-295); Potassium 4.6 mmol/L (3.5-5.1); Sodium 141 mmol/L (136-145); Total Bilirubin 0.5 mg/dL (0.15-1.2); Total Protein 6.7 g/dL (6.6-8.7)
[2023-02-22 16:34] LABS: Acetaminophen < 5.0 ug/mL (10-30); Alcohol Level < 10 mg/dL (0-10); Salicylate < 0.3 mg/dL (3-10)
[2023-02-22 19:50] VITALS: BP 151/106; PULSE 89; RESP 17; TEMP 36.4; O2SAT 96
[2023-02-23 06:00] VITALS: BP 124/90; PULSE 97; RESP 16; TEMP 36.9; O2SAT 94
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
[2023-02-23 09:19] LABS: Basophils # 0.1 10^3/uL (0.0-0.1); Basophils % 0.8 %; Eosinophils # 0.3 10^3/uL (0.0-0.8); Hematocrit 44.7 % (37-53); Lymphocytes # 1.5 10^3/uL (0.8-4.8); Lymphocytes % 22.8 %; Mean Corpuscular HGB Conc 33.3 g/dL (30-55); Mean Corpuscular Hemoglobin 29.4 pg (27-33); Mean Corpuscular Volume 88.2 fl (82-101); Mean Platelet Volume 10.4 fL (7.4-10.4); Monocytes # 0.6 10^3/uL (0.2-0.9); Monocytes % 8.3 %; Neutrophils # 4.17 10^3/uL (1.8-7.7); Neutrophils % 62.8 %; Nucleated Red Blood Cells % 0 %; Platelet Count 265 10^3/cmm (157-399); Red Blood Count 5.07 10^6/uL (3.85-5.65); Red Cell Distribution Width 15.5 % (12.1-15.1); White Blood Count 6.63 10^3/uL (3.29-11.43)
[2023-02-23 09:41] LABS: Anion Gap 12.3 (5-19); Blood Urea Nitrogen 15 mg/dL (6-20); Calcium 9.8 mg/dL (8.5-10.5); Carbon Dioxide 28 mmol/L (22-29); Chloride 103 mmol/L (98-107); Glomerular Filtration Rate 70.9 mL/min (90-130); Glucose 121 mg/dL (65-115); Osmolality Calculated 290 mOsm/kg (285-295); Potassium 4.3 mmol/L (3.5-5.1); Sodium 139 mmol/L (136-145)
[2023-02-23 10:06] LABS: Amphetamines Screen Urine Negative (Negative); Barbiturates Screen Urine Negative (Negative); Benzodiazepines Screen Urine Negative (Negative); Cocaine Screen Urine Negative (Negative); Opiate Screen Urine Negative (Negative); PCP Screen Urine Negative (Negative); THC Screen Urine Negative (Negative)
[2023-02-23 14:00] VITALS: BP 104/68; PULSE 60; RESP 16; TEMP 36.6; O2SAT 96
[2023-02-23] MEDS: flu vacc pf 2023-24 (6 mos+) 60 MCG IM (15:54)
[2023-02-23] MEDS: nicotine 4 mg lozenge MUCOUS MEM (17:56)
[2023-02-23] MEDS: gabapentin 300 mg Capsule PO ×2 (18:23→20:20)
[2023-02-23] MEDS: trazodone 50 mg Tablet PO (21:52)
[2023-02-23 22:00] VITALS: BP 125/88; PULSE 86; RESP 18; TEMP 36.7; O2SAT 97
[2023-02-24 06:00] VITALS: BP 138/95; PULSE 92; RESP 20; TEMP 36.9; O2SAT 95
[2023-02-24] MEDS: gabapentin 300 mg Capsule PO ×4 (09:03→22:14)
[2023-02-24] MEDS: methocarbamol 500 mg Tablet PO ×2 (09:07→18:35)
[2023-02-24] MEDS: nicotine 21 mg Patch 1 PATCH TRANSDERMA (11:54)
--- NOTE | 2023-02-24 12:06 | W.PM.NPUPNS ---
Subjective NPU Subjective: Patient presented today reporting that things are okay. Reports he still feeling depressed and that he just gets in these moments where he feels very suicidal. He reports that he is tolerating the medication thus far. He reports that he is hoping to feel significantly better so that he can discharge. He does report being homeless for the past 6 weeks. Mental Status Exam MSE Comments: This is well-nourished, well-developed white male in hospital scrubs with poor grooming and intermittent eye contact. No abnormal movements were appreciated except for moderate psychomotor retardation. He was cooperative with exam in no acute distress. Speech was normal rate, rhythm and prosody. Mood described as depressed. His affect was flat and mood congruent. Thought process was linear and organized. Thought contact: He endorsed suicidal ideation with plan to stab himself with knife. He denied any homicidal ideation., there were no delusions reported or noted, patient denied auditory or visual hallucinations. Attention and concentration appeared intact and memory appeared reliable but none were formally tested. Patient is alert and oriented to person, place time and situation. Insight was poor. Judgment and impulse control appears impaired. Vitals/I&O/Wt Last Vital Signs Temp 98.5 F 02/24/23 06:00 Pulse 92 02/24/23 06:00 Resp 20 H 02/24/23 06:00 BP 138/95 02/24/23 06:00 Pulse Ox 95 02/24/23 06:00 O2 Del Method Room Air 02/24/23 06:00 Weight last 48 hrs Weight 104.326 kg Data NPU 02/23/23 09:08 02/23/23 09:08 A&P Assessment and plan (1) Major depressive disorder, recurrent: Qualifiers: Active/Remission status: currently active Major depression episode severity: severe Psychotic features: without psychotic features Qualified Code(s): F33.2 - Major depressive disorder, recurrent severe without psychotic features (2) Alcohol dependence: (3) Borderline personality disorder: (4) Suicidal ideation: (5) PTSD (post-traumatic stress disorder): Plan This is a 52-year-old male with depression, PTSD, borderline personality disorder and alcohol dependence admitted with suicidal ideation currently homeless with increased concern regarding medication effectiveness. 1. Restarted abilify 10mg daily, wellbutrin xl 300mg in am, and Trintellix 20mg daily along with meloxicam, gabapentin, and methacarbamol. 2. Continue every 15 minute checks for safety. 3. Encourage individual, group and milieu therapies. 4. Encourage sober living treatment after discharge at the highest level of care to which he is willing to commit. 5. [facility] protocol Involuntary Hold Information 96 Hour Hold: 96 Hour Involuntary Admission: No Attestations NPU Medical Necessity Statement*: Inpatient hospitalization is medically necessary and deemed to ?be ?the clinically appropriate intervention ?at this time.? We will monitor/initiate medications and make changes as indicated.? The patient?s likely length of stay is 3-5 days. Coding Level of Care Code Acute Code for [facility] Fwd Diagnoses Major depressive disorder, recurrent F33.2 Active/Remission status: currently active Major depression episode severity: severe Psychotic features: without psychotic features Alcohol dependence F10.20 Borderline personality disorder F60.3 Suicidal ideation R45.851 PTSD (post-traumatic stress disorder) F43.10
[2023-02-24] MEDS: nicotine 4 mg lozenge MUCOUS MEM ×2 (13:04→16:05)
[2023-02-24 14:00] VITALS: BP 119/83; PULSE 82; RESP 17; TEMP 36.9; O2SAT 94
[2023-02-24 20:28] VITALS: BP 129/85; PULSE 76; RESP 20; TEMP 36.6; O2SAT 96
[2023-02-24] MEDS: trazodone 50 mg Tablet PO (22:04)
[2023-02-25 06:00] VITALS: BP 129/91; PULSE 77; RESP 17; TEMP 36.8; O2SAT 96
[2023-02-25] MEDS: methocarbamol 500 mg Tablet PO ×2 (08:11→18:01)
[2023-02-25] MEDS: gabapentin 300 mg Capsule PO ×4 (08:11→21:22)
[2023-02-25] MEDS: timolol 0.5% Op Soln 5 mL Btl 1 DROP OPHTHALMIC ×2 (08:35→17:49)
[2023-02-25] MEDS: meloxicam 7.5 mg tablet 15 MG PO (08:35)
[2023-02-25] MEDS: buPROPion XL (24 HR) 300 mg Tablet PO (08:46)
[2023-02-25] MEDS: ARIPiprazole 10 mg Tablet PO (08:46)
[2023-02-25] MEDS: nicotine 4 mg lozenge MUCOUS MEM ×2 (09:03→12:41)
--- NOTE | 2023-02-25 11:08 | P.NPUPN_ITS ---
Subjective NPU Subjective: Patient presented today reporting that he might be feeling a tiny bit better. He is working with the social work team on a possible sober living treatment placement option. They made a few referrals today. He also reported feeling like his athlete's foot has returned and asked for some kind of possible treatment. His recommendation is that he be given alcohol to put on his feet and that this is a documented treatment option. I explained that I would look into the end if not consider alternative treatment for his athlete's foot. Mental Status Exam MSE Comments: This is well-nourished, well-developed white male in hospital scrubs with poor grooming and intermittent eye contact. No abnormal movements were appreciated except for moderate psychomotor retardation. He was cooperative with exam in no acute distress. Speech was normal rate, rhythm and prosody. Mood described as maybe a little better today. His affect was flat and mood congruent. Thought process was linear and organized. Thought contact: He endorsed suicidal ideation with plan to stab himself with knife. He denied any homicidal ideation., there were no delusions reported or noted, patient denied auditory or visual hallucinations. Attention and concentration appeared intact and memory appeared reliable but none were formally tested. Patient is alert and oriented to person, place time and situation. Insight was poor. Judgment and impulse control appears impaired. Vitals/I&O/Wt Last Vital Signs Temp 98.3 F 02/25/23 06:00 Pulse 77 02/25/23 06:00 Resp 17 02/25/23 06:00 BP 129/91 02/25/23 06:00 Pulse Ox 96 02/25/23 06:00 O2 Del Method Room Air 02/25/23 06:00 Data NPU 02/23/23 09:08 02/23/23 09:08 A&P Assessment and plan (1) Major depressive disorder, recurrent: Qualifiers: Active/Remission status: currently active Major depression episode severity: severe Psychotic features: without psychotic features Qualified Code(s): F33.2 - Major depressive disorder, recurrent severe without psychotic features (2) Alcohol dependence: (3) Borderline personality disorder: (4) Suicidal ideation: (5) PTSD (post-traumatic stress disorder): Plan This is a 52-year-old male with depression, PTSD, borderline personality disorder and alcohol dependence admitted with suicidal ideation currently homeless with increased concern regarding medication effectiveness. 1. Restarted abilify 10mg daily, wellbutrin xl 300mg in am, and Trintellix 20mg daily along with meloxicam, gabapentin, and methacarbamol. 2. Continue every 15 minute checks for safety. 3. Encourage individual, group and milieu therapies. 4. Encourage sober living treatment after discharge at the highest level of care to which he is willing to commit. Patient working on sober living pl acement with treatment team. 5. [facility] protocol Involuntary Hold Information 96 Hour Hold: 96 Hour Involuntary Admission: No Attestations NPU Medical Necessity Statement*: Inpatient hospitalization is medically necessary and deemed to ?be ?the clinically appropriate intervention ?at this time.? We will monitor/initiate medications and make changes as indicated.? The patient?s likely length of stay is 3-4 days. Coding Level of Care Code Acute Code for [facility] Fwd Diagnoses Major depressive disorder, recurrent F33.2 Active/Remission status: currently active Major depression episode severity: severe Psychotic features: without psychotic features Alcohol dependence F10.20 Borderline personality disorder F60.3 Suicidal ideation R45.851 PTSD (post-traumatic stress disorder) F43.10
[2023-02-25 14:00] VITALS: BP 110/76; PULSE 63; RESP 17; TEMP 36.7; O2SAT 95
[2023-02-25 20:10] VITALS: BP 111/77; PULSE 60; RESP 18; TEMP 36.9; O2SAT 95
[2023-02-25] MEDS: latanoprost 0.005% Op Soln 2.5 mL Btl 1 DROP OPHTHALMIC (21:22)
[2023-02-25] MEDS: trazodone 50 mg Tablet PO (21:25)
[2023-02-26] MEDS: methocarbamol 500 mg Tablet PO ×2 (05:50→16:03)
[2023-02-26] MEDS: nicotine 4 mg lozenge MUCOUS MEM ×7 (05:50→20:18)
[2023-02-26 06:00] VITALS: BP 135/85; PULSE 63; RESP 18; O2SAT 95
[2023-02-26] MEDS: buPROPion XL (24 HR) 300 mg Tablet PO (08:04)
[2023-02-26] MEDS: meloxicam 7.5 mg tablet 15 MG PO (08:04)
[2023-02-26] MEDS: ARIPiprazole 10 mg Tablet PO (08:04)
[2023-02-26] MEDS: gabapentin 300 mg Capsule PO ×4 (08:04→20:18)
[2023-02-26] MEDS: timolol 0.5% Op Soln 5 mL Btl 1 DROP OPHTHALMIC ×2 (08:06→17:42)
--- NOTE | 2023-02-26 08:48 | PC.NURSE ---
During morning assessment, shantal reported anxiety as always . Patient stated that he had anxious dreams during the night but doesn't want to be prescribed meds for sleep because he is homeless and needs to be alert. Rates depression 10/30 because he isn't sure of what is next for him. Denies SI and HI at this time . Denies AVH.
[2023-02-26 14:00] VITALS: BP 118/78; PULSE 69; RESP 16; TEMP 36.8; O2SAT 97
--- NOTE | 2023-02-26 16:32 | P.NPUPN_ITS ---
Subjective NPU Subjective: Patient presented today reporting that he made several calls to different sober living facilities. He reports that he and the social work team identified some different places and he made all the calls that he agreed to make. He reports someone was supposed to return his call but did not. He reports a commitment to his recovery we discussed working with the social work team on Tuesday towards that end. Mental Status Exam MSE Comments: This is well-nourished, well-developed white male in hospital scrubs with poor grooming and intermittent eye contact. No abnormal movements were appreciated except for moderate psychomotor retardation. He was cooperative with exam in no acute distress. Speech was normal rate, rhythm and prosody. Mood described as maybe a little better today. His affect was flat and mood congruent. Thought process was linear and organized. Thought contact: He endorsed suicidal ideation with plan to stab himself with knife. He denied any homicidal ideation., there were no delusions reported or noted, patient denied auditory or visual hallucinations. Attention and concentration appeared intact and memory appeared reliable but none were formally tested. Patient is alert and oriented to person, place time and situation. Insight was poor. Judgment and impulse control appears impaired. Vitals/I&O/Wt Last Vital Signs Temp 98.3 F 02/26/23 14:00 Pulse 69 02/26/23 14:00 Resp 16 02/26/23 14:00 BP 118/78 02/26/23 14:00 Pulse Ox 97 02/26/23 14:00 O2 Del Method Room Air 02/26/23 06:00 Data NPU 02/23/23 09:08 02/23/23 09:08 A&P Assessment and plan (1) Major depressive disorder, recurrent: Qualifiers: Active/Remission status: currently active Major depression episode severity: severe Psychotic features: without psychotic features Qualified Code(s): F33.2 - Major depressive disorder, recurrent severe without psychotic features (2) Alcohol dependence: (3) Borderline personality disorder: (4) Suicidal ideation: (5) PTSD (post-traumatic stress disorder): Plan This is a 52-year-old male with depression, PTSD, borderline personality disorder and alcohol dependence admitted with suicidal ideation currently homeless with increased concern regarding medication effectiveness. 1. Restarted abilify 10mg daily, wellbutrin xl 300mg in am, and Trintellix 20mg daily along with meloxicam, gabapentin, and methacarbamol. 2. Continue every 15 minute checks for safety. 3. Encourage individual, group and milieu therapies. 4. Encourage sober living treatment after discharge at the highest level of care to which he is willing to commit. Patient working on sober living placement with treatment team. 5. [facility] protocol Involuntary Hold Information 96 Hour Hold: 96 Hour Involuntary Admission: No Attestations NPU Medical Necessity Statement*: Inpatient hospitalization is medically necessary and deemed to ?be ?the clinically appropriate intervention ?at this time.? We will monitor/initiate medications and make changes as indicated.? The patient?s likely length of stay is 3-4 days. Coding Level of Care Code Acute Code for [facility] Fwd Diagnoses Major depressive disorder, recurrent F33.2 Active/Remission status: currently active Major depression episode severity: severe Psychotic features: without psychotic features Alcohol dependence F10.20 Borderline personality disorder F60.3 Suicidal ideation R45.851 PTSD (post-traumatic stress disorder) F43.10
[2023-02-26] MEDS: latanoprost 0.005% Op Soln 2.5 mL Btl 1 DROP OPHTHALMIC (20:18)
[2023-02-26 22:00] VITALS: BP 128/82; PULSE 67; RESP 18; TEMP 36.6; O2SAT 97
[2023-02-26] MEDS: trazodone 50 mg Tablet PO (22:08)
[2023-02-27] MEDS: methocarbamol 500 mg Tablet PO ×3 (05:22→21:19)
[2023-02-27] MEDS: nicotine 4 mg lozenge MUCOUS MEM ×7 (05:22→20:28)
[2023-02-27 06:00] VITALS: BP 119/82; PULSE 67; RESP 18; O2SAT 95
[2023-02-27] MEDS: timolol 0.5% Op Soln 5 mL Btl 1 DROP OPHTHALMIC ×2 (08:22→17:13)
[2023-02-27] MEDS: ARIPiprazole 10 mg Tablet PO (08:23)
[2023-02-27] MEDS: buPROPion XL (24 HR) 300 mg Tablet PO (08:23)
[2023-02-27] MEDS: meloxicam 7.5 mg tablet 15 MG PO (08:23)
[2023-02-27] MEDS: gabapentin 300 mg Capsule PO ×4 (08:23→20:28)
--- NOTE | 2023-02-27 10:17 | P.NPUPN_ITS ---
Subjective NPU Subjective: Patient presented today reporting that he is feeling better with the medications. He reports that he looks forward to working with Elsy and the social work team tomorrow on different options for sober living treatment. He reports that he made calls on Tuesday and plans on making those calls and more on Tuesday as he is focused on getting into an inpatient rehab. He reports that [facility] was somehow under the impression he wanted outpatient but they are working on transitioning that referral to inpatient. Mental Status Exam MSE Comments: This is well-nourished, well-developed white male in hospital scrubs with poor grooming and intermittent eye contact. No abnormal movements were appreciated except for moderate psychomotor retardation. He was cooperative with exam in no acute distress. Speech was normal rate, rhythm and prosody. Mood described as maybe a little better today. His affect was flat and mood congruent. Thought process was linear and organized. Thought contact: He endorsed suicidal ideation with plan to stab himself with knife. He denied any homicidal ideation., there were no delusions reported or noted, patient denied auditory or visual hallucinations. Attention and concentration appeared intact and memory appeared reliable but none were formally tested. Patient is alert and oriented to person, place time and situation. Insight was poor. Judgment and impulse control appears impaired. Vitals/I&O/Wt Last Vital Signs Temp 97.9 F 02/26/23 22:00 Pulse 67 02/27/23 06:00 Resp 18 02/27/23 06:00 BP 119/82 02/27/23 06:00 Pulse Ox 95 02/27/23 06:00 O2 Del Method Room Air 02/27/23 06:00 Weight last 48 hrs Weight 96.842 kg Data NPU 02/23/23 09:08 02/23/23 09:08 A&P Assessment and plan (1) Major depressive disorder, recurrent: Qualifiers: Active/Remission status: currently active Major depression episode severity: severe Psychotic features: without psychotic features Qualified Code (s): F33.2 - Major depressive disorder, recurrent severe without psychotic features (2) Alcohol dependence: (3) Borderline personality disorder: (4) Suicidal ideation: (5) PTSD (post-traumatic stress disorder): Plan This is a 52-year-old male with depression, PTSD, borderline personality disorder and alcohol dependence admitted with suicidal ideation currently homeless with increased concern regarding medication effectiveness. 1. Restarted abilify 10mg daily, wellbutrin xl 300mg in am, and Trintellix 20mg daily along with meloxicam, gabapentin, and methacarbamol. 2. Continue every 15 minute checks for safety. 3. Encourage individual, group and milieu therapies. 4. Encourage sober living treatment after discharge at the highest level of care to which he is willing to commit. Patient working on sober living placement with treatment team. 5. [facility] protocol Involuntary Hold Information 96 Hour Hold: 96 Hour Involuntary Admission: No Attestations NPU Medical Necessity Statement*: Inpatient hospitalization is medically necessary and deemed to ?be ?the clinically appropriate intervention ?at this time.? We will monitor/initiate medications and make changes as indicated.? The patient?s likely length of stay is 3-4 days. Coding Level of Care Code Acute Code for g Fwd Diagnoses Major depressive disorder, recurrent F33.2 Active/Remission status: currently active Major depression episode severity: severe Psychotic features: without psychotic features Alcohol dependence F10.20 Borderline personality disorder F60.3 Suicidal ideation R45.851 PTSD (post-traumatic stress disorder) F43.10
[2023-02-27 14:00] VITALS: BP 108/74; PULSE 58; RESP 16; TEMP 36.7; O2SAT 97
[2023-02-27 20:18] VITALS: BP 104/71; PULSE 63; RESP 18; TEMP 36.8; O2SAT 96
[2023-02-27] MEDS: latanoprost 0.005% Op Soln 2.5 mL Btl 1 DROP OPHTHALMIC (20:28)
[2023-02-27] MEDS: trazodone 50 mg Tablet PO (21:19)
[2023-02-28 06:00] VITALS: BP 121/82; PULSE 64; RESP 16; TEMP 36.5; O2SAT 95
[2023-02-28] MEDS: nicotine 4 mg lozenge MUCOUS MEM ×5 (06:33→21:23)
[2023-02-28] MEDS: methocarbamol 500 mg Tablet PO ×2 (06:33→18:21)
[2023-02-28] MEDS: timolol 0.5% Op Soln 5 mL Btl 1 DROP OPHTHALMIC ×2 (08:26→18:20)
[2023-02-28] MEDS: meloxicam 7.5 mg tablet 15 MG PO (08:26)
[2023-02-28] MEDS: ARIPiprazole 10 mg Tablet PO (08:26)
[2023-02-28] MEDS: gabapentin 300 mg Capsule PO ×4 (08:26→21:16)
[2023-02-28] MEDS: buPROPion XL (24 HR) 300 mg Tablet PO (08:26)
[2023-02-28] MEDS: OLANZapine 5 mg ODT PO (09:15)
--- NOTE | 2023-02-28 11:12 | W.PM.NPUPNS ---
Subjective NPU Subjective: Patient presented today reporting that he is happy that they found a place for him to do his inpatient rehab. We discussed the positivity about his efforts to find a place and working with the treatment team to get that secured more quickly. We agreed it was appropriate to have him go directly from inpatient to inpatient rehab. He denied any issues with his medications at this time. Mental Status Exam MSE Comments: This is well-nourished, well-developed white male in hospital scrubs with poor grooming and intermittent eye contact. No abnormal movements were appreciated except for moderate psychomotor retardation. He was cooperative with exam in no acute distress. Speech was normal rate, rhythm and prosody. Mood described as maybe a little better today. His affect was flat and mood congruent. Thought process was linear and organized. Thought contact: He endorsed suicidal ideation with plan to stab himself with knife. He denied any homicidal ideation., there were no delusions reported or noted, patient denied auditory or visual hallucinations. Attention and concentration appeared intact and memory appeared reliable but none were formally tested. Patient is alert and oriented to person, place time and situation. Insight was poor. Judgment and impulse control appears impaired. Vitals/I&O/Wt Last Vital Signs Temp 97.7 F 02/28/23 06:00 Pulse 64 02/28/23 06:00 Resp 16 02/28/23 06:00 BP 121/82 02/28/23 06:00 Pulse Ox 95 02/28/23 06:00 O2 Del Method Room Air 02/28/23 06:00 Weight last 48 hrs Weight 96.842 kg Data NPU 02/23/23 09:08 02/23/23 09:08 A&P Assessment and plan (1) Major depressive disorder, recurrent: Qualifiers: Active/Remission status: currently active Major depression episode severity: severe Psychotic features: without psychotic features Qualified Code(s): F33.2 - Major depressive disorder, recurrent severe without psychotic features (2) Alcohol dependence: (3) Borderline personality disorder: (4) Suicidal ideation: (5) PTSD (post-traumatic stress disorder): Plan This is a 52-year-old male with depression, PTSD, borderline personality disorder and alcohol dependence admitted with suicidal ideation currently homeless with increased concern regarding medication effectiveness. 1. Restarted abilify 10mg daily, wellbutrin xl 300mg in am, and Trintellix 20mg daily along with meloxicam, gabapentin, and methacarbamol. 2. Continue every 15 minute checks for safety. 3. Encourage individual, group and milieu therapies. 4. Encourage sober living treatment after discharge at the highest level of care to which he is willing to commit. Patient working on sober living placement with treatment team. [facility] to take care of him for inpatient rehab . 5. [facility] protocol Involuntary Hold Information 96 Hour Hold: 96 Hour Involuntary Admission: No Attestations NPU Medical Necessity Statement*: Inpatient hospitalization is medically necessary and deemed to ?be ?the clinically appropriate intervention ?at this time.? We will monitor/initiate medications and make changes as indicated.? The patient?s likely length of stay is 3 days. Coding Level of Care Code Acute Code for g Fwd Diagnoses Major depressive disorder, recurrent F33.2 Active/Remission status: currently active Major depression episode severity: severe Psychotic features: without psychotic features Alcohol dependence F10.20 Borderline personality disorder F60.3 Suicidal ideation R45.851 PTSD (post-traumatic stress disorder) F43.10
[2023-02-28 14:00] VITALS: BP 101/62; PULSE 71; RESP 16; TEMP 36.6; O2SAT 98
[2023-02-28 19:45] VITALS: BP 134/89; PULSE 68; RESP 17; TEMP 36.5; O2SAT 91
[2023-02-28] MEDS: latanoprost 0.005% Op Soln 2.5 mL Btl 1 DROP OPHTHALMIC (21:16)
[2023-02-28] MEDS: trazodone 50 mg Tablet PO (22:41)
[2023-03-01] MEDS: methocarbamol 500 mg Tablet PO ×2 (05:18→20:51)
[2023-03-01] MEDS: nicotine 4 mg lozenge MUCOUS MEM ×8 (05:18→20:35)
[2023-03-01 06:00] VITALS: BP 111/74; PULSE 64; RESP 17; O2SAT 94
[2023-03-01] MEDS: timolol 0.5% Op Soln 5 mL Btl 1 DROP OPHTHALMIC ×2 (09:32→17:49)
[2023-03-01] MEDS: meloxicam 7.5 mg tablet 15 MG PO (09:32)
[2023-03-01] MEDS: ARIPiprazole 10 mg Tablet PO (09:33)
[2023-03-01] MEDS: buPROPion XL (24 HR) 300 mg Tablet PO (09:33)
[2023-03-01] MEDS: gabapentin 300 mg Capsule PO ×4 (09:33→20:36)
--- NOTE | 2023-03-01 10:56 | P.NPUPN_ITS ---
Subjective NPU Subjective: Patient presented today reporting that he is doing all right. He reports he feels he is getting better each day and he is excited about the opportunity to go to inpatient rehab. We discussed getting his medications and documents together tomorrow so that he can leave first thing in the morning as they have a curfew to arrive by. Otherwise he denies any new issues and reports being dedicated to reestablishing a sound recovery. Mental Status Exam MSE Comments: This is well-nourished, well-developed white male in hospital scrubs with poor grooming and intermittent eye contact. No abnormal movements were appreciated except for moderate psychomotor retardation. He was cooperative with exam in no acute distress. Speech was normal rate, rhythm and prosody. Mood described as maybe a little better today. His affect was flat and mood congruent. Thought process was linear and organized. Thought contact: He endorsed suicidal ideation with plan to stab himself with knife. He denied any homicidal ideation., there were no delusions reported or noted, patient denied auditory or visual mena ucinations. Attention and concentration appeared intact and memory appeared reliable but none were formally tested. Patient is alert and oriented to person, place time and situation. Insight was poor. Judgment and impulse control appears impaired. Vitals/I&O/Wt Last Vital Signs Temp 97.7 F 02/28/23 19:45 Pulse 64 03/01/23 06:00 Resp 17 03/01/23 06:00 BP 111/74 03/01/23 06:00 Pulse Ox 94 03/01/23 06:00 O2 Del Method Room Air 03/01/23 06:00 Data NPU 02/23/23 09:08 02/23/23 09:08 A&P Assessment and plan (1) Major depressive disorder, recurrent: Qualifiers: Active/Remission status: currently active Major depression episode severity: severe Psychotic features: without psychotic features Qualified Cod e(s): F33.2 - Major depressive disorder, recurrent severe without psychotic features (2) Alcohol dependence: (3) Borderline personality disorder: (4) Suicidal ideation: (5) PTSD (post-traumatic stress disorder): Plan This is a 52-year-old male with depression, PTSD, borderline personality disorder and alcohol dependence admitted with suicidal ideation currently homeless with increased concern regarding medication effectiveness. 1. Restarted abilify 10mg daily, wellbutrin xl 300mg in am, and Trintellix 20mg daily along with meloxicam, gabapentin, and methacarbamol. 2. Continue every 15 minute checks for safety. 3. Encourage individual, group and milieu therapies. 4. Encourage sober living treatment after discharge at the highest level of care to which he is willing to commit. Patient working on sober living placemen t with treatment team. [facility] to take care of him for inpatient rehab. Ride arranged for 7 AM . 5. [facility] protocol Involuntary Hold Information 96 Hour Hold: 96 Hour Involuntary Admission: No Attestations NPU Medical Necessity Statement*: Inpatient hospitalization is medically necessary and deemed to ?be ?the clinically appropriate intervention ?at this time.? We will monitor/initiate medications and make changes as indicated.? The patient?s likely length of stay is 2 days. Coding Level of Care Code Acute Code for g Fwd Diagnoses Major depressive disorder, recurrent F33.2 Active/Remission status: currently active Major depression episode severity: severe Psychotic features: without psychotic features Alcohol dependence F10.20 Borderline personality disorder F60.3 Suicidal ideation R45.851 PTSD (post-traumatic stress disorder) F43.10
[2023-03-01 14:00] VITALS: BP 110/74; PULSE 58; RESP 16; TEMP 36.6; O2SAT 97
[2023-03-01] MEDS: latanoprost 0.005% Op Soln 2.5 mL Btl 1 DROP OPHTHALMIC (20:36)
[2023-03-01] MEDS: hyDROXYzine 25 mg Capsule 50 MG PO (20:36)
[2023-03-01] MEDS: trazodone 50 mg Tablet PO (20:36)
[2023-03-01 21:03] VITALS: BP 110/75; PULSE 87; RESP 18; TEMP 36.4; O2SAT 97
[2023-03-02] MEDS: nicotine 4 mg lozenge MUCOUS MEM ×7 (05:17→20:32)
[2023-03-02] MEDS: methocarbamol 500 mg Tablet PO ×3 (05:17→21:17)
[2023-03-02 06:00] VITALS: BP 129/94; PULSE 76; RESP 16; TEMP 36.5; O2SAT 96
[2023-03-02] MEDS: ARIPiprazole 10 mg Tablet PO (08:23)
[2023-03-02] MEDS: meloxicam 7.5 mg tablet 15 MG PO (08:23)
[2023-03-02] MEDS: gabapentin 300 mg Capsule PO ×4 (08:23→21:17)
[2023-03-02] MEDS: buPROPion XL (24 HR) 300 mg Tablet PO (08:23)
[2023-03-02] MEDS: timolol 0.5% Op Soln 5 mL Btl 1 DROP OPHTHALMIC ×2 (08:23→17:00)
[2023-03-02 14:00] VITALS: BP 116/77; PULSE 62; RESP 16; TEMP 37; O2SAT 97
--- NOTE | 2023-03-02 14:13 | P.NPUPN_ITS ---
Subjective NPU Subjective: Patient presented today reporting that he is feeling really positive about going to inpatient rehab and is wanting to make sure everything is ready for the process. He understands that his window is tight as he needs to be there by about 930 and he will need a ride to be here around 7 to avoid any problems. We also discussed making sure that his medications were prepared today so that man orrow morning it would just be paperwork to sign to get out the door. He denies any new issues. Mental Status Exam MSE Comments: This is well-nourished, well-developed white male in hospital scrubs with poor grooming and intermittent eye contact. No abnormal movements were appreciated. He was cooperative with exam in no acute distress. Speech was normal rate, rhythm and prosody. Mood described as pretty good. His affect was congruent. Thought process was linear and organized. Thought contact: He had suicidal or homicidal ideation, there were no delusions reported or noted, patient denied auditory or visual hallucinations. Attention and concentration appeared intact and memory appeared reliable but none were formally tested. Patient is alert and oriented to person, place time and situation. Insight was improving. Judgment improving and impulse control appears limited, but improving. Vitals/I&O/Wt Last Vital Signs Temp 97.7 F 03/02/23 06:00 Pulse 76 03/02/23 06:00 Resp 16 03/02/23 06:00 BP 129/94 03/02/23 06:00 Pulse Ox 96 03/02/23 06:00 O2 Del Method Room Air 03/02/23 06:00 Data NPU 02/23/23 09:08 02/23/23 09:08 A&P Assessment and plan (1) Major depressive disorder, recurrent: Qualifiers: Active/Remission status: currently active Major depression episode severity: severe Psychotic features: without psychotic features Qualified Code(s): F33.2 - Major depressive disorder, recurrent severe without psychotic features (2) Alcohol dependence: (3) Borderline personality disorder: (4) Suicidal ideation: (5) PTSD (post-traumatic stress disorder): Plan This is a 52-year-old male with depression, PTSD, borderline personality disorder and alcohol dependence admitted with suicidal ideation currently homeless with increased concern regarding medication effectiveness. 1. Restarted abilify 10mg daily, wellbutrin xl 300mg in am, and Trintellix 20mg daily along with meloxicam, gabapentin, and methacarbamol. 2. Continue every 15 minute checks for safety. 3. Encourage individual, group and milieu therapies. 4. Encourage sober living treatment after discharge at the highest level of care to which he is willing to commit. Patient working on sober living placement with treatment team. [facility] to take care of him for inpatient rehab. Ride arranged for 7 AM tomorrow morning. 5. [facility] protocol Involuntary Hold Information 96 Hour Hold: 96 Hour Involuntary Admission: No Attestations NPU Medical Necessity Statement*: Inpatient hospitalization is medically necessary and deemed to ?be ?the clinically appropriate intervention ?at this time.? We will monitor/initiate medications and make changes as indicated.? The patient?s likely length of stay is 1 days. Coding Level of Care Code Acute Code for g Fwd Diagnoses Major depressive disorder, recurrent F33.2 Active/Remission status: currently active Major depression episode severity: severe Psychotic features: without psychotic features Alcohol dependence F10.20 Borderline personality disorder F60.3 Suicidal ideation R45.851 PTSD (post-traumatic stress disorder) F43.10
[2023-03-02 21:02] VITALS: BP 114/74; PULSE 64; RESP 18; TEMP 36.7; O2SAT 98
[2023-03-02] MEDS: latanoprost 0.005% Op Soln 2.5 mL Btl 1 DROP OPHTHALMIC (21:17)
[2023-03-02] MEDS: trazodone 50 mg Tablet PO (21:17)
[2023-03-02] MEDS: OLANZapine 5 mg ODT PO (21:21)
[2023-03-03 06:00] VITALS: BP 122/79; PULSE 66; RESP 17; TEMP 37.1; O2SAT 97
[2023-03-03 06:11] VITALS: BP 114/74; PULSE 64; RESP 18; TEMP 36.7; O2SAT 98
[2023-03-03] MEDS: nicotine 4 mg lozenge MUCOUS MEM (06:28)
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
== END 2023-03-03 07:24 | DRG 885 ==
LOC: ER 16:49 → NP 17:56
PROVIDERS: Internal Medicine; Admitting Provider Psychiatry & Neurology Psychiatry; Emergency Provider Physician Assistant; PCP Family Medicine; Visit Provider Psychiatry & Neurology Psychiatry
DX: F33.2 Major depressive disorder, recurrent severe without psychotic features (principal); R45.851 Suicidal ideations; Z59.00 Homelessness unspecified; F60.3 Borderline personality disorder; F43.10 Post-traumatic stress disorder, unspecified; F10.20 Alcohol dependence, uncomplicated; Z62.810 Personal history of physical and sexual abuse in childhood; Z62.811 Personal history of psychological abuse in childhood; F17.210 Nicotine dependence, cigarettes, uncomplicated
CPT/HCPCS: 36415; 80048; 80053; 80306; 80307; 85025; 90471; 90686; 97150; 97165; 99285

== ENCOUNTER 2023-09-21 15:15 | Inpatient (IN) | payer MEDICAID, SELFPAY ==
[2023-09-21 15:19] VITALS: BP 177/98; PULSE 126; RESP 20; TEMP 36.6; O2SAT 94
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
--- NOTE | 2023-09-21 15:57 | PC.PHAR ---
pt states he takes care of his own medications-pt states he hasnt taken his buspar or cymbalta since tue09/16/23 pt states not started using his eye drops as of 09/21/23
[2023-09-21 16:49] LABS: Add Urine Microscopic? YES; Bilirubin Urine Neg (Negative); Blood Urine 2+ (Negative); Glucose Urine UA Norm (Normal); Ketones Urine 3+ (Negative); Leukocyte Esterase Urine Negative (Negative); Nitrate Urine Negative (Negative); Protein Urine Neg (Negative); Urine Appearance Clear (CLEAR); Urine Color Dark Yellow (Yellow); Urobilinogen Urine Norm (Negative); pH Urine 6 (5-7)
[2023-09-21 16:55] LABS: Basophils # 0.1 10^3/uL (0.0-0.1); Basophils % 0.6 %; Eosinophils # 0.1 10^3/uL (0.0-0.8); Eosinophils % 0.9 %; Hematocrit 48.4 % (37-53); Lymphocytes # 1.5 10^3/uL (0.8-4.8); Lymphocytes % 12.4 %; Mean Corpuscular HGB Conc 33.1 g/dL (30-55); Mean Corpuscular Hemoglobin 28.9 pg (27-33); Mean Corpuscular Volume 87.4 fl (82-101); Monocytes # 0.9 10^3/uL (0.2-0.9); Monocytes % 7.1 %; Neutrophils # 9.64 10^3/uL (1.8-7.7); Neutrophils % 78.7 %; Nucleated Red Blood Cells % 0 %; Platelet Count 213 10^3/cmm (157-399); Red Blood Count 5.54 10^6/uL (3.85-5.65); White Blood Count 12.25 10^3/uL (3.29-11.43)
[2023-09-21 16:58] LABS: Amphetamines Screen Urine Negative (Negative); Barbiturates Screen Urine Negative (Negative); Benzodiazepines Screen Urine Negative (Negative); Cocaine Screen Urine Negative (Negative); Opiate Screen Urine Negative (Negative); PCP Screen Urine Negative (Negative); THC Screen Urine Negative (Negative)
[2023-09-21 17:14] LABS: Alanine Aminotransferase 42 U/L (0-41); Albumin Level 4.8 g/dL (3.5-5.2); Alcohol Level 144 mg/dL (0-10); Alkaline Phosphatase 83 U/L (40-130); Anion Gap 27.1 (5-19); Aspartate Amino Transferase 40 U/L (0-40); Blood Urea Nitrogen 16 mg/dL (6-20); Calcium 9.9 mg/dL (8.5-10.5); Carbon Dioxide 20 mmol/L (22-29); Chloride 100 mmol/L (98-107); Creatinine Clr Calc Pharmacy 107.8794; Globulin 3.3 g/dL (1.3-4.6); Glomerular Filtration Rate 78.8 mL/min (90-130); Glucose 86 mg/dL (65-115); Osmolality Calculated 296 mOsm/kg (285-295); Potassium 4.1 mmol/L (3.5-5.1); Sodium 143 mmol/L (136-145); Total Bilirubin 0.3 mg/dL (0.15-1.2); Total Protein 8.1 g/dL (6.6-8.7)
[2023-09-21 17:16] LABS: Acetaminophen < 5.0 ug/mL (10-30); Salicylate < 0.3 mg/dL (3-10)
[2023-09-21 17:25] LABS: Add Urine Culture? No; Amorphous Sediment Urine TRACE /hpf; Bacteria Urine TRACE /hpf; Fine Granular Casts Urine 0-4 /lpf; Hyaline Casts Urine 0-4 /lpf; Mucus Urine 3+ /hpf; RBC Urine 0-4 /hpf (0-2); WBC Urine 0-4 /hpf (0-5)
[2023-09-21 17:31] VITALS: RESP 18; O2SAT 98
[2023-09-21 20:02] VITALS: BP 146/90; PULSE 100; RESP 18; TEMP 36.7; O2SAT 96
[2023-09-21 20:13] VITALS: BP 146/90; PULSE 100; RESP 18; TEMP 36.7; O2SAT 96
[2023-09-21 20:59] VITALS: RESP 16
[2023-09-21] MEDS: latanoprost 0.005% Op Soln 2.5 mL Btl 1 DROP EYE-BOTH (21:20)
[2023-09-21] MEDS: hyDROXYzine 25 mg Capsule 50 MG PO (21:21)
[2023-09-21] MEDS: trazodone 50 mg Tablet PO (21:21)
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
[2023-09-22 03:50] VITALS: BP 113/70; PULSE 87; RESP 16; TEMP 36.8; O2SAT 94
[2023-09-22 04:09] VITALS: BP 111/69; PULSE 78; RESP 15; TEMP 36.8; O2SAT 94
[2023-09-22 07:25] VITALS: BP 120/72; PULSE 80; RESP 16; TEMP 36.9; O2SAT 95
[2023-09-22] MEDS: timolol 0.5% Op Soln 5 mL Btl 1 DROP EYE-RIGHT ×2 (08:29→18:07)
[2023-09-22] MEDS: BuSPIRONE 10 mg Tablet PO ×2 (08:29→18:07)
[2023-09-22] MEDS: duloxetine 30 mg Capsule 60 MG PO (08:29)
--- NOTE | 2023-09-22 09:50 | W.PM.NPUH&PS ---
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 status: currently active Major depression episode severity: severe Psychotic features: without psychotic features Qualified Code(s): F33.2 - Major depressive disorder, recurrent severe without psychotic features (2) Alcohol dependence: (3) Borderline personality disorder: (4) Suicidal ideation: (5) PTSD (post-traumatic stress disorder): Plan This is a 53-year-old male known through past hospitalization with depression, PTSD, borderline personality disorder and alcohol dependence once again admitted with suicidal ideation currently homeless after being kicked out of his alf, [employer]. 1. Review his medication and consider which ones to restart at what doses versus consider a new medication. We discussed considering acamprosate moving forward. 2. Continue every 15 minute checks for safety. 3. Encourage individual, group and milieu therapies. 4. Encourage sober living treatment after discharge at the highest level of care to which he is willing to commit. 5. [facility] protocol Involuntary Hold Information 96 Hour Hold: 96 Hour Involuntary Admission: No Attestations NPU Medical Necessity Statement*: Inpatient hospitalization is medically necessary and deemed to ?be ?the clinically appropriate intervention ?at this time.? We will monitor/initiate medications and make changes as indicated.? The patient will be in the hospital for over 2 midnights.? The patient?s likely length of stay is 4-6 days. Coding Level of Care Code Acute Code for [facility] Fwd Diagnoses Severe episode of recurrent major depressive disorder, without psychotic features F33.2 Active/Remission status: currently active Major depression episode severity: severe Psychotic features: without psychotic features Alcohol dependence F10.20 Borderline personality disorder F60.3 Suicidal ideation R45.851 PTSD (post-traumatic stress disorder) F43.10
[2023-09-22 12:00] VITALS: BP 144/90; PULSE 77; RESP 16; TEMP 36.6; O2SAT 96
[2023-09-22] MEDS: nicotine 4 mg lozenge MUCOUS MEM ×2 (12:00→15:27)
[2023-09-22 14:07] VITALS: BP 127/84; PULSE 99; RESP 16; TEMP 36.8; O2SAT 96
[2023-09-22] MEDS: hyDROXYzine 25 mg Capsule 50 MG PO (15:25)
[2023-09-22] MEDS: OLANZapine 5 mg ODT PO ×2 (16:41→20:17)
[2023-09-22 20:00] VITALS: BP 110/69; PULSE 80; RESP 15; TEMP 36.7; O2SAT 96
[2023-09-22] MEDS: latanoprost 0.005% Op Soln 2.5 mL Btl 1 DROP EYE-BOTH (20:16)
[2023-09-22] MEDS: trazodone 50 mg Tablet PO (20:17)
[2023-09-23] VITALS (7 sets, daily range): BP systolic 102–129; BP diastolic 53–91; PULSE 53–81; RESP 16–18; TEMP 36.3–36.9; O2SAT 94–96
[2023-09-23] MEDS: duloxetine 30 mg Capsule 60 MG PO (08:55)
[2023-09-23] MEDS: timolol 0.5% Op Soln 5 mL Btl 1 DROP EYE-RIGHT ×2 (08:55→17:38)
[2023-09-23] MEDS: nicotine 4 mg lozenge MUCOUS MEM ×4 (08:55→20:43)
[2023-09-23] MEDS: BuSPIRONE 10 mg Tablet PO ×2 (08:55→17:39)
[2023-09-23] MEDS: folic acid 1 mg Tablet PO (09:47)
[2023-09-23] MEDS: multivitamin therapeutic Tablet 1 TAB PO (09:47)
[2023-09-23] MEDS: LORazepam 2 mg Tablet PO (09:47)
[2023-09-23] MEDS: thiamine 100 mg Tablet PO (09:47)
[2023-09-23] MEDS: ondansetron 4 MG Tablet PO (12:58)
[2023-09-23] MEDS: OLANZapine 5 mg ODT PO ×3 (12:58→21:52)
--- NOTE | 2023-09-23 14:36 | P.NPUPN_ITS ---
Subjective NPU 2 Subjective: Patient presented today reporting that things are going a little bit better. He endorsed that some of the dizziness, queasiness and withdrawal symptoms have begun to dissipate some. He continues to work with the social work team on viable options for his recovery and sober living treatment. He denies any side effects of the medication. Mental Status Exam 2 MSE Comments: This is an obese white male in hospital scrubs with poor grooming and intermittent eye contact. No abnormal movements were appreciated except for moderate psychomotor retardation. He was mostly cooperative with exam in mild to moderate distress. Speech was decreased rate and volume. Mood described as depressed. His affect was flat and mood congruent. Thought process was linear and organized. Thought contact: He endorsed suicidal ideation, but he denied any homicidal ideation, there were no delusions reported or noted, patient denied auditory or visual hallucinations. Attention and concentration appeared intact and memory appeared reliable but none were formally tested. Patient is alert and oriented to person, place time and situation. Insight was poor. Judgment and impulse control appears impaired. Vitals/I&O/Wt Last Vital Signs Temp 98 F 09/23/23 14:13 Pulse 73 09/23/23 14:13 Resp 16 09/23/23 14:13 BP 106/70 09/23/23 14:13 Pulse Ox 94 09/23/23 14:13 O2 Del Method Room Air 09/23/23 14:13 Weight last 48 hrs Weight 105.233 kg Data NPU 09/21/23 16:40 09/21/23 16:40 A&P Assessment and plan (1) Major depressive disorder, recurrent: Qualifiers: Active/Remission status: currently active Major depression episode severity: severe Psychotic features: without psychotic features Qualified Code(s): F33.2 - Major depressive disorder, recurrent severe without psychotic features (2) Alcohol dependence: (3) Borderline personality disorder: (4) Suicidal ideation: (5) PTSD (post-traumatic stress disorder): Plan This is a 53-year-old male known through past hospitalization with depression, PTSD, borderline personality disorder and alcohol dependence once again admitted with suicidal ideation currently homeless after being kicked out of his care home, [employer]. 1. Review his medication and consider which ones to restart at what doses versus consider a new medication. We discussed considering acamprosate moving forward. 2. Continue every 15 minute checks for safety. 3. Encourage individual, group and milieu therapies. 4. Encourage sober living treatment after discharge at the highest level of care to which he is willing to commit. 5. [facility] protocol Involuntary Hold Information 2 96 Hour Hold: 96 Hour Involuntary Admission: No Attestations NPU 2 Medical Necessity Statement*: Inpatient hospitalization is medically necessary and deemed to ?be ?the clinically appropriate intervention ?at this time.? We will monitor/initiate medications and make changes as indicated.? The patient?s likely length of stay is 3-5 days. Coding Level of Care Code Acute Code for [facility] Fwd Diagnoses Severe episode of recurrent major depressive disorder, without psychotic features F33.2 Active/Remission status: currently active Major depression episode severity: severe Psychotic features: without psychotic features Alcohol dependence F10.20 Borderline personality disorder F60.3 Suicidal ideation R45.851 PTSD (post-traumatic stress disorder) F43.10
[2023-09-23] MEDS: latanoprost 0.005% Op Soln 2.5 mL Btl 1 DROP EYE-BOTH (20:15)
[2023-09-23] MEDS: acetaminophen 325 mg Tablet 650 MG PO (20:16)
[2023-09-23] MEDS: trazodone 50 mg Tablet PO ×2 (20:16→21:51)
[2023-09-24 06:25] VITALS: BP 129/84; PULSE 57; RESP 18; TEMP 36.4; O2SAT 95
--- NOTE | 2023-09-24 07:44 | P.NPUPN_ITS ---
Subjective NPU 2 Subjective: Patient presented today reporting that things are going better. He endorsed resolution of the dizziness, queasiness and withdrawal symptoms. He continues to work with the social work team on viable options for his recovery and sober living treatment. He denies any side effects of the medication. We agreed to consider discharge on Tuesday we identified and are sober living options materialized. Mental Status Exam 2 MSE Comments: This is an obese white male in hospital scrubs with poor grooming and intermittent eye contact. No abnormal movements were appreciated except for moderate psychomotor retardation. He was mostly cooperative with exam in mild to moderate distress. Speech was decreased rate and volume. Mood described as depressed. His affect was flat and mood congruent. Thought process was linear and organized. Thought contact: He endorsed suicidal ideation, but he denied any homicidal ideation, there were no delusions reported or noted, patient denied auditory or visual hallucinations. Attention and concentration appeared intact and memory appeared reliable but none were formally tested. Patient is alert and oriented to person, place time and situation. Insight was poor. Judgment and impulse control appears impaired. Vitals/I&O/Wt Last Vital Signs Temp 97.5 F L 09/24/23 06:25 Pulse 57 L 09/24/23 06:25 Resp 18 09/24/23 06:25 BP 129/84 09/24/23 06:25 Pulse Ox 95 09/24/23 06:25 O2 Del Method Room Air 09/23/23 14:13 Data NPU 09/21/23 16:40 09/21/23 16:40 A&P Assessment and plan (1) Major depressive disorder, recurrent: Qualifiers: Active/Remission status: currently active Major depression episode severity: severe Psychotic features: without psychotic features Qualified Code(s): F33.2 - Major depressive disorder, recurrent severe without psychotic features (2) Alcohol dependence: (3) Borderline personality disorder: (4) Suicidal ideation: (5) PTSD (post-traumatic stress disorder): Plan This is a 53-year-old male known through past hospitalization with depression, PTSD, borderline personality disorder and alcohol dependence once again admitted with suicidal ideation currently homeless after being kicked out of his retirement, [employer]. 1. Review his and restart his medications We discussed considering acamprosate moving forward. 2. Continue every 15 minute checks for safety. 3. Encourage individual, group and milieu therapies. 4. Encourage sober living treatment after discharge at the highest level of care to which he is willing to commit. 5. [facility] protocol Involuntary Hold Information 2 96 Hour Hold: 96 Hour Involuntary Admission: No Attestations NPU 2 Medical Necessity Statement*: Inpatient hospitalization is medically necessary and deemed to ?be ?the clinically appropriate intervention ?at this time.? We will monitor/initiate medications and make changes as indicated.? The patient?s likely length of stay is 2-4 days. Coding Level of Care Code Acute Code for [facility] Fwd Diagnoses Severe episode of recurrent major depressive disorder, without psychotic features F33.2 Active/Remission status: currently active Major depression episode severity: severe Psychotic features: without psychotic features Alcohol dependence F10.20 Borderline personality disorder F60.3 Suicidal ideation R45.851 PTSD (post-traumatic stress disorder) F43.10
[2023-09-24 08:00] VITALS: BP 135/89; PULSE 58; RESP 16; TEMP 36.4; O2SAT 93
[2023-09-24] MEDS: multivitamin therapeutic Tablet 1 TAB PO (08:15)
[2023-09-24] MEDS: folic acid 1 mg Tablet PO (08:15)
[2023-09-24] MEDS: nicotine 4 mg lozenge MUCOUS MEM ×3 (08:15→18:06)
[2023-09-24] MEDS: BuSPIRONE 10 mg Tablet PO ×2 (08:15→18:06)
[2023-09-24] MEDS: duloxetine 30 mg Capsule 60 MG PO (08:15)
[2023-09-24] MEDS: thiamine 100 mg Tablet PO (08:15)
[2023-09-24] MEDS: hyDROXYzine 25 mg Capsule 50 MG PO ×2 (08:23→16:32)
[2023-09-24] MEDS: timolol 0.5% Op Soln 5 mL Btl 1 DROP EYE-RIGHT ×2 (08:24→18:07)
[2023-09-24 11:45] VITALS: BP 113/80; PULSE 73; RESP 16; TEMP 36.4; O2SAT 95
[2023-09-24] MEDS: OLANZapine 5 mg ODT PO ×2 (12:23→20:31)
--- NOTE | 2023-09-24 12:23 | PC.NURSE ---
Patient reporting anxiety 12/30, cause is life stressors. This nurse asked if there was anything I could do to help alleviate his anxiety. Patient requesting medication. Administered zyprexa 5mg ODT to patient. patient returned to room
[2023-09-24 14:33] VITALS: BP 117/81; PULSE 73; RESP 16; TEMP 37.2; O2SAT 96
[2023-09-24 19:53] VITALS: BP 118/75; PULSE 78; RESP 18; TEMP 36.3; O2SAT 95
[2023-09-24] MEDS: ibuprofen 600 mg Tablet PO (20:31)
[2023-09-24] MEDS: trazodone 50 mg Tablet PO (20:32)
[2023-09-24] MEDS: latanoprost 0.005% Op Soln 2.5 mL Btl 1 DROP EYE-BOTH (20:32)
[2023-09-24 21:28] VITALS: RESP 16
[2023-09-25 06:00] VITALS: RESP 16
[2023-09-25] MEDS: BuSPIRONE 10 mg Tablet PO ×2 (08:22→17:54)
[2023-09-25] MEDS: duloxetine 30 mg Capsule 60 MG PO (08:22)
[2023-09-25] MEDS: multivitamin therapeutic Tablet 1 TAB PO (08:22)
[2023-09-25] MEDS: folic acid 1 mg Tablet PO (08:22)
[2023-09-25] MEDS: timolol 0.5% Op Soln 5 mL Btl 1 DROP EYE-RIGHT ×2 (08:23→17:54)
[2023-09-25] MEDS: thiamine 100 mg Tablet PO (08:23)
[2023-09-25] MEDS: nicotine 4 mg lozenge MUCOUS MEM ×3 (12:15→19:10)
[2023-09-25 14:00] VITALS: BP 141/87; PULSE 79; RESP 16; TEMP 36.7; O2SAT 96
[2023-09-25] MEDS: nicotine 2 mg Gum BUCCAL (15:01)
--- NOTE | 2023-09-25 17:57 | P.NPUPN_ITS ---
Subjective NPU 2 Subjective: Patient is a 53-year-old male with PTSD and depression admitted with suicidal ideation. He had reported being hopeful about going into a rehabilitation based program focusing on his alcohol use. He had endorsed being homeless after he had been removed from his [facility]. He continued to endorse depression. He reported no side effects from his current medications. He continued to complain of problems with anxiety and depression. He had remained hopeful about finding an alternative place to go for substance abuse treatment. Mental Status Exam 2 MSE Comments: This is an obese white male in hospital scrubs with poor grooming and intermittent eye contact. No abnormal movements were appreciated except for moderate psychomotor retardation. He was cooperative with exam in mild distress. Speech was decreased in rate and volume. Mood described as depressed. His affect was restricted. Thought process was linear and organized. Thought contact: He endorsed suicidal ideation, but he denied any homicidal ideation, there were no delusions reported or noted, patient denied auditory or visual hallucinations. Attention and concentration appeared intact and memory appeared reliable but none were formally tested. Patient is alert and oriented to person, place time and situation. Insight was poor. Judgment and impulse control appears impaired. Vitals/I&O/Wt Last Vital Signs Temp 98.0 F 09/25/23 14:00 Pulse 79 09/25/23 14:00 Resp 16 09/25/23 14:00 BP 141/87 09/25/23 14:00 Pulse Ox 96 09/25/23 14:00 O2 Del Method Room Air 09/24/23 14:33 Weight last 48 hrs Weight 104.553 kg Data NPU 09/21/23 16:40 09/21/23 16:40 A&P Assessment and plan (1) Major depressive disorder, recurrent: Qualifiers: Active/Remission status: currently active Major depression episode severity: severe Psychotic features: without psychotic features Qualified Code(s): F33.2 - Major depressive disorder, recurrent severe without psychotic features (2) Alcohol dependence: (3) Borderline personality disorder: (4) Suicidal ideation: (5) PTSD (post-traumatic stress disorder): Plan This is a 53-year-old male known through past hospitalization with depression, PTSD, borderline personality disorder and alcohol dependence once again admitted with suicidal ideation currently homeless after being kicked out of his [facility], [employer]. 1. Increase Cymbalta to 90mg daily. 2. Continue every 15 minute checks for safety. 3. Encourage individual, group and milieu therapies. 4. Encourage sober living treatment after discharge at the highest level of care to which he is willing to commit. 5. [facility] protocol Involuntary Hold Information 2 96 Hour Hold: 96 Hour Involuntary Admission: No Attestations NPU 2 Medical Necessity Statement*: Inpatient hospitalization is medically necessary and deemed to ?be ?the clinically appropriate intervention ?at this time.? We will monitor/initiate medications and make changes as indicated.? The patient?s likely length of stay is 2-3 days. Coding Level of Care Code Acute Code for [facility] Fwd Diagnoses Severe episode of recurrent major depressive disorder, without psychotic features F33.2 Active/Remission status: currently active Major depression episode severity: severe Psychotic features: without psychotic features Alcohol dependence F10.20 Borderline personality disorder F60.3 Suicidal ideation R45.851 PTSD (post-traumatic stress disorder) F43.10
[2023-09-25] MEDS: acetaminophen 325 mg Tablet 650 MG PO (19:09)
[2023-09-25] MEDS: hyDROXYzine 25 mg Capsule 50 MG PO (19:10)
[2023-09-25] MEDS: trazodone 50 mg Tablet PO ×2 (19:10→20:51)
[2023-09-25] MEDS: latanoprost 0.005% Op Soln 2.5 mL Btl 1 DROP EYE-BOTH (19:11)
[2023-09-25] MEDS: OLANZapine 5 mg ODT PO (20:51)
[2023-09-25 20:53] VITALS: BP 123/85; PULSE 96; RESP 18; TEMP 36.6; O2SAT 95
[2023-09-26 06:00] VITALS: RESP 18
[2023-09-26] MEDS: timolol 0.5% Op Soln 5 mL Btl 1 DROP EYE-RIGHT ×2 (09:33→17:18)
[2023-09-26] MEDS: duloxetine 30 mg Capsule 90 MG PO (09:34)
[2023-09-26] MEDS: multivitamin therapeutic Tablet 1 TAB PO (09:34)
[2023-09-26] MEDS: thiamine 100 mg Tablet PO (09:34)
[2023-09-26] MEDS: BuSPIRONE 10 mg Tablet PO ×2 (09:34→17:19)
[2023-09-26] MEDS: hyDROXYzine 25 mg Capsule 50 MG PO ×2 (09:34→19:31)
[2023-09-26] MEDS: nicotine 4 mg lozenge MUCOUS MEM ×6 (09:35→21:29)
[2023-09-26] MEDS: folic acid 1 mg Tablet PO (09:37)
[2023-09-26 14:00] VITALS: BP 119/75; PULSE 75; RESP 16; TEMP 36.8; O2SAT 96
--- NOTE | 2023-09-26 15:28 | P.NPUPN_ITS ---
Subjective NPU 2 Subjective: Patient is a 53-year-old male with PTSD and depression admitted with suicidal ideation. Patient reported no side effects from the increase in Cymbalta. He had stated that he would like to go inpatient to [facility] and would be attempting to seek a placement outside of here for a couple of weeks until an opening was available for him for inpatient treatment at the [facility]. He had reported an extended history of depression and continue to report low energy and low motivation. He had reported having chronic problems with managing anxiety. He had endorsed some PTSD symptoms. He had reported having suicidal thoughts but stated that he had no current plan. Mental Status Exam 2 MSE Comments: This is an obese white male in hospital scrubs with poor grooming and intermittent eye contact. No abnormal movements were appreciated except for moderate psychomotor retardation. He was cooperative with exam in mild distress. Speech was normal in rate and volume. Mood described as depressed. His affect was restricted. Thought process was linear and organized. Thought contact: He endorsed suicidal ideation, but he denied any homicidal ideation, there were no delusions reported or noted, patient denied auditory or visual hallucinations. Attention and concentration appeared intact and memory appeared reliable but none were formally tested. Patient is alert and oriented to person, place time and situation. Insight was poor. Judgment and impulse control appears impaired. Vitals/I&O/Wt Last Vital Signs Temp 98.3 F 09/26/23 14:00 Pulse 75 09/26/23 14:00 Resp 16 09/26/23 14:00 BP 119/75 09/26/23 14:00 Pulse Ox 96 09/26/23 14:00 O2 Del Method Room Air 09/26/23 14:00 Weight last 48 hrs Weight 104.553 kg Data NPU 09/21/23 16:40 09/21/23 16:40 A&P Assessment and plan (1) Major depressive disorder, recurrent: Qualifiers: Active/Remission status: currently active Major depression episode severity: severe Psychotic features: without psychotic features Qualified Code(s): F33.2 - Major depressive disorder, recurrent severe without psychotic features (2) Alcohol dependence: (3) Borderline personality disorder: (4) Suicidal ideation: (5) PTSD (post-traumatic stress disorder): Plan This is a 53-year-old male known through past hospitalization with depression, PTSD, borderline personality disorder and alcohol dependence once again admitted with suicidal ideation currently homeless after being kicked out of his nursing home, [place]. 1. Continue Cymbalta to 90mg daily. Continue BUSPAR at 10mg bid. 2. Continue every 15 minute checks for safety. 3. Encourage individual, group and milieu therapies. 4. Encourage sober living treatment after discharge at the highest level of care to which he is willing to commit. 5. Patient refusing NALTREXONE, consider Campral 666 tid to target binge drinking? Involuntary Hold Information 2 96 Hour Hold: 96 Hour Involuntary Admission: No Attestations NPU 2 Medical Necessity Statement*: Inpatient hospitalization is medically necessary and deemed to ?be ?the clinically appropriate intervention ?at this time.? We will monitor/initiate medications and make changes as indicated.? The patient?s likely length of stay is 2-3 days. Coding Level of Care Code Acute Code for [facility] Fwd Diagnoses Severe episode of recurrent major depressive disorder, without psychotic features F33.2 Active/Remission status: currently active Major depression episode severity: severe Psychotic features: without psychotic features Alcohol dependence F10.20 Borderline personality disorder F60.3 Suicidal ideation R45.851 PTSD (post-traumatic stress disorder) F43.10
[2023-09-26] MEDS: trazodone 50 mg Tablet PO ×2 (19:32→21:28)
[2023-09-26 20:07] VITALS: BP 123/85; PULSE 74; RESP 16; TEMP 36.4; O2SAT 95
[2023-09-26] MEDS: latanoprost 0.005% Op Soln 2.5 mL Btl 1 DROP EYE-BOTH (21:27)
[2023-09-27 06:00] VITALS: BP 100/67; PULSE 67; RESP 17; TEMP 36.6; O2SAT 95
[2023-09-27] MEDS: folic acid 1 mg Tablet PO (07:43)
[2023-09-27] MEDS: thiamine 100 mg Tablet PO (07:43)
[2023-09-27] MEDS: multivitamin therapeutic Tablet 1 TAB PO (07:43)
[2023-09-27] MEDS: timolol 0.5% Op Soln 5 mL Btl 1 DROP EYE-RIGHT ×2 (07:44→17:10)
[2023-09-27] MEDS: nicotine 4 mg lozenge MUCOUS MEM ×6 (07:44→19:44)
[2023-09-27] MEDS: BuSPIRONE 10 mg Tablet PO ×2 (07:44→17:10)
[2023-09-27] MEDS: duloxetine 30 mg Capsule 90 MG PO (07:44)
[2023-09-27] MEDS: OLANZapine 5 mg ODT PO ×2 (07:47→20:14)
--- NOTE | 2023-09-27 07:53 | PC.NURSE ---
Patient states he has anxiety /10, caused by the way things will go when discharged . Patient reports depression 11/29. Patient denies SI, HI, AVH. Administered zyprexa 5mg ODT to patient for anxiety.
[2023-09-27 14:00] VITALS: BP 109/78; PULSE 83; RESP 20; TEMP 37; O2SAT 94
--- NOTE | 2023-09-27 15:21 | P.NPUPN_ITS ---
Subjective NPU 2 Subjective: Patient is a 53-year-old male with PTSD and depression and alcohol dependence admitted with suicidal ideation. Patient reported no side effects from the increase in Cymbalta. Patient had continued to report having suicidal thoughts but stated that he felt optimistic about going to an inpatient substance abuse facility. He had been compliant on the milieu although he had isolated himself. He was able to attend groups. He had continued to endorse depression. He had reported having no current urges to hurt himself. He had reported having struggles with managing anxiety and continue to endorse some PTSD symptoms including nightmares, sleep continuity disruption, flashbacks, and avoidance of places that triggered his PTSD. Mental Status Exam 2 MSE Comments: This is an obese white male in hospital scrubs with poor grooming and intermittent eye contact. No abnormal movements were appreciated except for moderate psychomotor retardation. He was cooperative with exam in mild distress. Speech was normal in rate and volume. Mood reported as depressed. His affect was restricted and mood congruent. Thought process was linear and organized. Thought contact: He endorsed suicidal ideation, but he denied any homicidal ideation, there were no delusions reported or noted, patient denied auditory or visual hallucinations. Attention and concentration appeared intact and memory appeared reliable but none were formally tested. Patient is alert and oriented to person, place time and situation. Insight was poor. Judgment and impulse control appears impaired. Vitals/I&O/Wt Last Vital Signs Temp 97.9 F 09/27/23 06:00 Pulse 67 09/27/23 06:00 Resp 17 09/27/23 06:00 BP 100/67 09/27/23 06:00 Pulse Ox 95 09/27/23 06:00 O2 Del Method Room Air 09/26/23 14:00 Data NPU 09/21/23 16:40 09/21/23 16:40 A&P Assessment and plan (1) Major depressive disorder, recurrent: Qualifiers: Active/Remission status: currently active Major depression episode severity: severe Psychotic features: without psychotic features Qualified Code(s): F33.2 - Major depressive disorder, recurrent severe without psychotic features (2) Alcohol dependence: (3) Borderline personality disorder: (4) Suicidal ideation: (5) PTSD (post-traumatic stress disorder): Plan This is a 53-year-old male known through past hospitalization with depression, PTSD, borderline personality disorder and alcohol dependence once again admitted with suicidal ideation currently homeless after being kicked out of his [place] [facility], [facility]. 1. Continue Cymbalta to 90mg daily. Continue BUSPAR at 10mg bid. 2. Continue every 15 minute checks for safety. 3. Encourage individual, group and milieu therapies. 4. Encourage sober living treatment after discharge at the highest level of care to which he is willing to commit. 5. Consider direct transfer to [facility] inpatient substance abuse treatment once stabilized later this week. Involuntary Hold Information 2 96 Hour Hold: 96 Hour Involuntary Admission: No Attestations NPU 2 Medical Necessity Statement*: Inpatient hospitalization is medically necessary and deemed to ?be ?the clinically appropriate intervention ?at this time.? We will monitor/initiate medications and make changes as indicated.? The patient?s likely length of stay is 2-3 days. Coding Level of Care Code Acute Code for [facility] Fwd Diagnoses Severe episode of recurrent major depressive disorder, without psychotic features F33.2 Active/Remission status: currently active Major depression episode severity: severe Psychotic features: without psychotic features Alcohol dependence F10.20 Borderline personality disorder F60.3 Suicidal ideation R45.851 PTSD (post-traumatic stress disorder) F43.10
[2023-09-27 19:41] VITALS: BP 119/78; PULSE 63; RESP 16; TEMP 36.6; O2SAT 95
[2023-09-27] MEDS: latanoprost 0.005% Op Soln 2.5 mL Btl 1 DROP EYE-BOTH (20:14)
[2023-09-27] MEDS: trazodone 50 mg Tablet PO ×2 (20:14→21:31)
[2023-09-28 05:59] VITALS: BP 109/73; PULSE 64; RESP 16; TEMP 36.6; O2SAT 95
[2023-09-28] MEDS: nicotine 4 mg lozenge MUCOUS MEM ×7 (06:13→20:10)
[2023-09-28] MEDS: multivitamin therapeutic Tablet 1 TAB PO (07:51)
[2023-09-28] MEDS: duloxetine 30 mg Capsule 90 MG PO (07:52)
[2023-09-28] MEDS: folic acid 1 mg Tablet PO (07:52)
[2023-09-28] MEDS: thiamine 100 mg Tablet PO (07:52)
[2023-09-28] MEDS: BuSPIRONE 10 mg Tablet PO ×2 (07:52→17:32)
[2023-09-28] MEDS: timolol 0.5% Op Soln 5 mL Btl 1 DROP EYE-RIGHT ×2 (08:17→17:33)
[2023-09-28 14:00] VITALS: BP 119/80; PULSE 69; RESP 18; TEMP 36.7; O2SAT 94
--- NOTE | 2023-09-28 16:56 | P.NPUPN_ITS ---
Subjective NPU 2 Subjective: Patient is a 53-year-old male with PTSD and depression and alcohol dependence admitted with suicidal ideation. The patient had reported no nightmares recently. He reports that his suicidal thoughts have diminished. He reported that he was optimistic about his placement at [facility] tomorrow for inpatient substance abuse rehabilitation. He had isolated himself on the milieu but was able to attend groups. He had reported continued avoidance of places that remind him of his trauma. He had reported at times feeling depressed for days at a time and reported previous stress at his prison. He had reported significant attempts to harm himself before in the past but states that he has been less concerned about the use thoughts. Mental Status Exam 2 MSE Comments: This is an obese white male in hospital scrubs with poor grooming and intermittent eye contact. No abnormal movements were appreciated except for moderate psychomotor retardation. He was cooperative with exam in mild distress. Speech was normal in rate and volume. Mood reported as a little better. His affect was restricted and flat. Thought process was linear and organized. Thought contact: He endorsed no suicidal ideation and denied any homicidal ideation, there were no delusions reported or noted, patient denied auditory or visual hallucinations. Attention and concentration appeared intact and memory appeared reliable but none were formally tested. Patient is alert and oriented to person, place time and situation. Insight was poor. Judgment and impulse control appears impaired. Vitals/I&O/Wt Last Vital Signs Temp 98.1 F 09/28/23 14:00 Pulse 69 09/28/23 14:00 Resp 18 09/28/23 14:00 BP 119/80 09/28/23 14:00 Pulse Ox 94 09/28/23 14:00 O2 Del Method Room Air 09/28/23 05:59 Data NPU 09/21/23 16:40 09/21/23 16:40 A&P Assessment and plan (1) Major depressive disorder, recurrent: Qualifiers: Active/Remission status: currently active Major depression episode severity: severe Psychotic features: without psychotic features Qualified Code(s): F33.2 - Major depressive disorder, recurrent severe without psychotic features (2) Alcohol dependence: (3) Borderline personality disorder: (4) Suicidal ideation: (5) PTSD (post-traumatic stress disorder): Plan This is a 53-year-old male known through past hospitalization with depression, PTSD, borderline personality disorder and alcohol dependence once again admitted with suicidal ideation currently homeless after being kicked out of his prison, [employer]. 1. Continue Cymbalta to 90mg daily. Continue BUSPAR at 10mg bid. Patient not wishing adjustment of medication at this time. 2. Continue every 15 minute checks for safety. 3. Encourage individual, group and milieu therapies. 4. Encourage sober living treatment after discharge at the highest level of care to which he is willing to commit. 5. Direct transfer to [facility] substance abuse treatment [facility]. Involuntary Hold Information 2 96 Hour Hold: 96 Hour Involuntary Admission: No Attestations NPU 2 Medical Necessity Statement*: Inpatient hospitalization is medically necessary and deemed to ?be ?the clinically appropriate intervention ?at this time.? We will monitor/initiate medications and make changes as indicated.? The patient?s likely length of stay is 1-2 days. Coding Level of Care Code Acute Code for Chg Fwd Diagnoses Severe episode of recurrent major depressive disorder, without psychotic features F33.2 Active/Remission status: currently active Major depression episode severity: severe Psychotic features: without psychotic features Alcohol dependence F10.20 Borderline personality disorder F60.3 Suicidal ideation R45.851 PTSD (post-traumatic stress disorder) F43.10
[2023-09-28 19:18] VITALS: BP 105/72; PULSE 80; RESP 15; TEMP 36.6; O2SAT 95
[2023-09-28] MEDS: trazodone 50 mg Tablet PO ×2 (20:08→21:09)
[2023-09-28] MEDS: latanoprost 0.005% Op Soln 2.5 mL Btl 1 DROP EYE-BOTH (20:08)
[2023-09-29 06:18] VITALS: BP 109/68; PULSE 68; RESP 14; TEMP 36.4; O2SAT 96
[2023-09-29] MEDS: nicotine 4 mg lozenge MUCOUS MEM ×3 (07:58→12:22)
[2023-09-29] MEDS: thiamine 100 mg Tablet PO (07:58)
[2023-09-29] MEDS: multivitamin therapeutic Tablet 1 TAB PO (07:58)
[2023-09-29] MEDS: folic acid 1 mg Tablet PO (07:58)
[2023-09-29] MEDS: duloxetine 30 mg Capsule 90 MG PO (07:59)
[2023-09-29] MEDS: timolol 0.5% Op Soln 5 mL Btl 1 DROP EYE-RIGHT (07:59)
[2023-09-29] MEDS: BuSPIRONE 10 mg Tablet PO (07:59)
[2023-09-29 10:55] VITALS: BP 109/68; PULSE 68; RESP 14; TEMP 36.4; O2SAT 96
--- NOTE | 2023-09-29 12:53 | W.PM.NPUDCS ---
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 16.00 g/dL (11.27 -16.99) 09/21/23 16:40 Hct 48.4 % (37-53) 09/21/23 16:40 MCV 87.4 fl (82-101) 09/21/23 16:40 MCH 28.9 pg (27-33) 09/21/23 16:40 MCHC 33.1 g/dL (30-55) 09/21/23 16:40 RDW 14.0 % (12.1-15.1 ) 09/21/23 16:40 Plt Count 213 10^3/cmm (157 -399) 09/21/23 16:40 MPV 12.0 fL (7.4-10.4 ) H 09/21/23 16:40 Neut % (Auto) 78.7 % 09/21/23 16:40 Lymph % (Auto) 12.4 % 09/21/23 16:40 [place] % (Auto) 7.1 % 09/21/23 16:40 Eos % (Auto) 0.9 % 09/21/23 16:40 Baso % (Auto) 0.6 % 09/21/23 16:40 Neut # (Auto) 9.64 10^3/uL (1.8 -7.7) H 09/21/23 16:40 Lymph # (Auto) 1.5 10^3/uL (0.8- 4.8) 09/21/23 16:40 [place] # (Auto) 0.9 10^3/uL (0.2- 0.9) 09/21/23 16:40 Eos # (Auto) 0.1 10^3/uL (0.0- 0.8) 09/21/23 16:40 Baso # (Auto) 0.1 10^3/uL (0.0- 0.1) 09/21/23 16:40 Nucleated RBC % (a uto) 0 % 09/21/23 16:40 Nucleated RBCs # 0.0 /100WBC 09/21/23 16:40 Sodium 143 mmol/L (136-1 45) 09/21/23 16:40 Potassium 4.1 mmol/L (3.5-5 .1) 09/21/23 16:40 Chloride 100 mmol/L (98-10 7) 09/21/23 16:40 Carbon Dioxide 20 mmol/L (22-29) L 09/21/23 16:40 Anion Gap 27.1 (5-19) H 09/21/23 16:40 BUN 16 mg/dL (6-20) 09/21/23 16:40 Creatinine 1.0 mg/dL (0.7-1. 2) 09/21/23 16:40 GFR Calculation 78.8 mL/min (90-1 30) L 09/21/23 16:40 Glucose 86 mg/dL (65-115) 09/21/23 16:40 Calculated Osmolal ity 296 mOsm/kg (285- 295) H 09/21/23 16:40 Calcium 9.9 mg/dL (8.5-10 .5) 09/21/23 16:40 Total Bilirubin 0.3 mg/dL (0.15-1 .2) 09/21/23 16:40 AST 40 U/L (0-40) 09/21/23 16:40 ALT 42 U/L (0-41) H 09/21/23 16:40 Alkaline Phosphata se 83 U/L (40-130) 09/21/23 16:40 Total Protein 8.1 g/dL (6.6-8.7 ) 09/21/23 16:40 Albumin 4.8 g/dL (3.5-5.2 ) 09/21/23 16:40 Globulin 3.3 g/dL (1.3-4.6 ) 09/21/23 16:40 Urine Color Dark yellow (Yel low) 09/21/23 16:15 Urine Appearance Clear (CLEAR) 09/21/23 16:15 Urine pH 6 (5-7) 09/21/23 16:15 Ur Specific Gravit y 1.030 (1.005-1.0 30) 09/21/23 16:15 Urine Protein Neg (Negative) 09/21/23 16:15 Urine Glucose (UA) Norm (Normal) 09/21/23 16:15 Urine Ketones 3+ (Negative) H 09/21/23 16:15 Urine Blood 2+ (Negative) H 09/21/23 16:15 Urine Nitrate Negative (Negati ve) 09/21/23 16:15 Urine Bilirubin Neg (Negative) 09/21/23 16:15 Urine Urobilinogen Norm mg/dL (Negat jonathan) 09/21/23 16:15 Ur Leukocyte Debra ase Negative (Negati ve) 09/21/23 16:15 Urine RBC 0-4 /hpf (0-2) H 09/21/23 16:15 Urine WBC 0-4 /hpf (0-5) H 09/21/23 16:15 Ur Squamous Epith Cells None /hpf (0-5) 09/21/23 16:15 Amorphous Sediment Trace /hpf 09/21/23 16:15 Urine Bacteria Trace /hpf (NONE) 09/21/23 16:15 Hyaline Casts 0-4 /lpf H 09/21/23 16:15 Fine Granular Cast s 0-4 /lpf H 09/21/23 16:15 Urine Mucus 3+ /hpf 09/21/23 16:15 Salicylates < 0.3 mg/dL (3-10 ) L 09/21/23 16:40 Urine Opiates Scre en Negative ng/mL (N egative) 09/21/23 16:15 Acetaminophen < 5.0 ug/mL (10-3 0) L 09/21/23 16:40 Ur Barbiturates Sc reen Negative ng/mL (N egative) 09/21/23 16:15 Ur Phencyclidine S crn Negative ng/mL (N egative) 09/21/23 16:15 Ur Amphetamines Sc reen Negative ng/mL (N egative) 09/21/23 16:15 U Benzodiazepines Scrn Negative ng/mL (N egative) 09/21/23 16:15 Urine Cocaine Scre en Negative ng/mL (N egative) 09/21/23 16:15 U Marijuana (THC) Screen Negative ng/mL (N egative) 09/21/23 16:15 Ethyl Alcohol 144 mg/dL (0-10) H 09/21/23 16:40 Vitals: Last Vital Signs Temp 97.6 F 09/29/23 10:55 Pulse 68 09/29/23 10:55 Resp 14 09/29/23 10:55 BP 109/68 09/29/23 10:55 Pulse Ox 96 09/29/23 10:55 O2 Del Method Room Air 09/29/23 06:18 Discharge Plan Discharge Patient Disposition: Home Condition: Stable Prescriptions: New buspirone 10 mg Tablet 10 mg PO BID 30 Days Qty: 60 1RF duloxetine 30 mg Capsule,Delayed Release(Dr/Ec) 90 mg PO DAILY 30 Days Qty: 90 1RF Vitamin B-1 (mononitrate) 100 mg Tablet 100 mg PO DAILY 30 Days Qty: 30 1RF Cymbalta 30 mg capsule,delayed release(DR/EC) 90 mg PO DAILY Qty: 90 1RF buspirone 10 mg tablet 10 mg PO BID Qty: 60 1RF folic acid 1 mg tablet 1 mg PO DAILY Qty: 30 1RF Betimol 0.5 % drops 1 drp ophthalmic (eye) BID Qty: 5 1RF latanoprost 0.005 % drops 1 drp ophthalmic (eye) DAILY Qty: 2.5 1RF Rx Instructions: both eyes daily thiamine HCl (vitamin B1) 100 mg tablet 100 mg PO DAILY Qty: 30 1RF Continued timolol maleate 0.5 % drops 1 drp ophthalmic (eye) BID 30 Days Qty: 5 1RF Rx Instructions: Both eyes Changed latanoprost 0.005 % drops 1 drp ophthalmic (eye) BEDTIME Qty: 2.5 1RF Rx Instructions: Both eyes Discontinued buspirone 10 mg tablet 10 mg PO BID Qty: 60 0RF duloxetine 30 mg capsule,delayed release(DR/EC) 60 mg PO QAM buspirone 10 mg tablet 5 mg PO BID Discharge Orders: Discharge Order (Routine); Ordered 09/29/23 Ordered By: Jason Varner Referrals: [facility] [Other] (Call for any insurance questions or needs) [facility] [Outside] - 09/29/23 1:00 pm Vicki Paredes APRN [Nurse Practitioner] - 10/04/23 3:15 pm Kevin Rubio MD [Primary Care Provider] - Ada Arrington LMSW [Therapist] - Discharge Diet: Usual diet Discharge Activity: Resume usual activity Patient Instructions: Alcohol Abuse, Alcoholism, Help Prevent Suicide (DC), Suicide Prevention (DC), Opioid Safety Discharge Attestations NPU Time Spent in Discharge Care*: less than 30 min Specific Discharge Activities: Specific discharge activities: educating patient and evaluating patient/reviewing data Coding Level of Care Code Acute Code for [facility] Fwd Diagnoses Severe episode of recurrent major depressive disorder, without psychotic features F33.2 Active/Remission status: currently active Major depression episode severity: severe Psychotic features: without psychotic features Alcohol dependence F10.20 Borderline personality disorder F60.3 Suicidal ideation R45.851 PTSD (post-traumatic stress disorder) F43.10
== END 2023-09-29 12:51 | DRG 885 ==
LOC: ER 17:25 → NP 17:32
PROVIDERS: Emergency Medicine; Admitting Provider Psychiatry & Neurology Psychiatry; Emergency Provider Physician Assistant; PCP Family Medicine; Visit Provider Psychiatry & Neurology Psychiatry
DX: F33.2 Major depressive disorder, recurrent severe without psychotic features (principal); R45.851 Suicidal ideations; F10.20 Alcohol dependence, uncomplicated; F60.3 Borderline personality disorder; F43.10 Post-traumatic stress disorder, unspecified; F17.210 Nicotine dependence, cigarettes, uncomplicated
CPT/HCPCS: 36415; 80053; 80306; 80307; 81001; 85025; 97150; 97165; 99285; Q0162

== ENCOUNTER 2023-11-13 08:50 | Emergency (ER) | payer MEDICAID, SELFPAY ==
[2023-11-13 08:58] VITALS: BP 138/98; PULSE 87; RESP 18; TEMP 36.8; O2SAT 96; BMI 31.1
--- NOTE | 2023-11-13 09:08 | ED_ITS ---
HPI - Eye Problem General: Chief complaint: Eye Problems Stated complaint: Both eyes swollen/red Time Seen by Provider: 11/13/23 09:01 Source: patient Mode of arrival: ambulatory Limitations: no limitations History of Present Illness: 53-year-old male states has been having swelling to bilateral eyes conjunctive and eyelids for over a week he seen train reservation clerk Dr. León had seen him yesterday he has them on eye ointment that has an antibiotic and a steroid states he has been giving him steroids as well he states the swelling is worse and he does follow-up with them next week denies any change in vision. Associated symptoms: Denies fever(s), headache(s), nausea, neck pain or vomiting Review of Systems Const: Denies: fever(s), chills, body aches or change in appetite Eyes: Reports: eye redness ENMT: Denies: throat pain or dental pain Card: Denies: chest pain Resp: Denies: dyspnea GI: Denies: abdominal pain, nausea, vomiting or diarrhea Musc: Denies: neck pain or back pain Skin/Breast: Denies: rash Neuro: Denies: headache(s) PFSH ED PFSH: Medical History Nicotine addiction Alcohol use disorder, severe, in early remission, dependence Depression Alcohol use disorder Alcohol abuse Major depressive disorder, recurrent, severe with psychotic symptoms Homelessness Alcohol dependence Depression Depression with suicidal ideation Psychiatric care Social History Smoking and tobacco/nicotine status: current every day tobacco/nicotine user cigarettes Packs smoked per day: 0.5 Years cigarettes smoked: 35 Quit status (tobacco/nicotine): has tried quititng Number of times tried to quit tobacco: 3 Second hand smoke exposure: No Alcohol intake: current Substance/Drug Use: never Physical Exam Const: COMMON NORMALS: no acute distress, patient oriented x3 and healthy appearing HENMT: COMMON NORMALS: normocephalic and atraumatic HEAD & SCALP: normocephalic and atraumatic Eye: OTHER: Some slight swelling to bilateral eyelids he has chemosis as well Neck/C-Spine: COMMON NORMALS: full ROM and supple Chest: COMMONS NORMALS: normal inspection of the chest Resp: COMMON NORMALS: normal respiratory effort Cardio: COMMON NORMALS: regular rate, regular rhythm and No murmurs present (Cardio) RATE: regular rate RHYTHM: regular rhythm Extremity: COMMON NORMALS: normal to inspection and full ROM Neuro: COMMON NORMALS: patient oriented x3, moves all extremities and no focal motor deficits Psych: COMMON NORMALS: mental status grossly normal, Normal thought process present and cooperative THOUGHT PROCESS: Normal thought process present Skin: COMMON NORMALS: no rashes or lesions noted and no wounds GENERAL SKIN EXAM: no rashes or lesions noted Course Vital Signs: Vital signs: Vital Signs Temperature 98.3 F 11/13/23 08:58 Pulse Rate 87 11/13/23 08:58 Respiratory Rate 18 11/13/23 08:58 Blood Pressure 138/98 11/13/23 08:58 Pulse Oximetry 96 11/13/23 08:58 Oxygen Delivery Me thod Room Air 11/13/23 08:58 MDM - Eye Problem Medical Decision Making Patient presents for some eyelid swelling along with bilateral chemosis likely allergic conjunctivitis he has been followed with ophthalmology who are treating it as allergic conjunctivitis as well we will give him Pepcid Benadryl here he is to follow back up with ophthalmology as scheduled next week exam here is benign. No radiology studies performed this visit Discharge Plan Discharge Patient Disposition: Home Clinical Impression: Chemosis of conjunctiva of both eyes, Eye swelling Condition: Stable Prescriptions: No Action naltrexone 50 mg tablet 50 mg PO DAILY acamprosate 333 mg tablet,delayed release (DR/EC) 666 mg PO TID buspirone 10 mg tablet 10 mg PO BID Qty: 60 1RF Rx Instructions: Take one tablet by mouth twice daily Vitamin B-1 (mononitrate) 100 mg Tablet 100 mg PO DAILY 30 Days Qty: 30 1RF latanoprost 0.005 % drops 1 drp ophthalmic (eye) BEDTIME Qty: 2.5 1RF Rx Instructions: Both eyes Cymbalta 30 mg capsule,delayed release(DR/EC) 90 mg PO DAILY Qty: 90 1RF folic acid 1 mg tablet 1 mg PO DAILY Qty: 30 1RF Betimol 0.5 % drops 1 drp ophthalmic (eye) BID Qty: 5 1RF thiamine HCl (vitamin B1) 100 mg tablet 100 mg PO DAILY Qty: 30 1RF Discharge Orders: Discharge ED (Routine); Ordered 11/13/23 Ordered By: Gianni Uribe Referrals: Kevin León MD [Physician] - 4-7 days Kevin Rubio MD [Primary Care Provider] - Discharge Diet: Advance as tolerated Discharge Activity: Resume usual activity Patient Instructions: Eyelid Swelling (ED) Coding Level of Care Code ED Anatomic Pathologist for Garrett Marks
[2023-11-13] MEDS: diphenhydrAMINE 50 mg Capsule PO (09:20)
[2023-11-13] MEDS: famotidine 20 mg Tablet 40 MG PO (09:20)
[2023-11-13 09:24] VITALS: BP 135/92; PULSE 84; O2SAT 95
== END 2023-11-13 09:25 | disposition home or self-care (01) ==
PROVIDERS: Emergency Provider Emergency Medicine; PCP Family Medicine
DX: H11.423 Conjunctival edema, bilateral (principal); F17.210 Nicotine dependence, cigarettes, uncomplicated
CPT/HCPCS: 99283; Q0163

== ENCOUNTER → 2024-01-18 08:17 | Outpatient (BNVA) | payer MEDICAID, SELFPAY | PROVIDERS: PCP Family Medicine; Visit Provider Physician Assistant | DX: M94.262 Chondromalacia, left knee (principal); Z09 Encounter for follow-up examination after completed treatment for conditions other than malignant neoplasm | CPT/HCPCS: 73560; 73565 ==

== ENCOUNTER 2024-01-24 09:14 | Outpatient (CLI) | payer MEDICAID, SELFPAY ==
--- NOTE | 2024-01-24 09:20 | MR_ITS ---
WS: [id number] MRI LUMBAR SPINE NONCONTRAST TECHNIQUE: Sagittal T1, T2 and STIR imaging. Axial T1 and T2 imaging. CLINICAL INFORMATION: CHRONIC LOW BACK PAIN COMPARISON: None. FINDINGS: Mild lumbar curve. No acute compression. Schmorl's nodes in the lower thoracic and lumbar spine. Disc space narrowing worse at L5-S1. L1-L2: Mild facet arthropathy. L2-L3: Mild facet arthropathy. Spinal canal and foramen are patent. L3-L4: Mild facet arthropathy. Spinal canal and foramen are patent. Mild annular bulging. L4-L5: Slight retrolisthesis L4 on L5. Mild disc bulging with mild central canal stenosis. Narrowing of the subarticular recess bilaterally. Mild bilateral foraminal narrowing RIGHT greater than LEFT wi th small foraminal protrusions. Moderate facet arthropathy. L5-S1: Disc desiccation. Disc osteophyte complex with slight contact of the LEFT greater than RIGHT S 1 nerve roots. Moderate facet arthropathy. Mild bilateral bony foraminal narrowing LEFT greater than RIGHT. Visualized pelvic bony structures: Normal. Paravertebral soft tissues: Normal. MR/MR lumbar spine wo con* [id number] IMPRESSION: 1. Mild lumbar curve. Slight retrolisthesis L3 on L4 and L4 on L5. 2. Mild central canal stenosis L4-5 with impingement of the subarticular reces s bilaterally and traversing L5 nerve roots. 3. Small bilateral foraminal protrusions L4-5 with mild RIGHT greater than LEF T foraminal narrowing. Slight impingement on the exiting RIGHT L4 nerve root. 4. Moderate facet arthropathy worse at L4-5 with small facet effusions. 5. Mild bilateral L5-S1 bony foraminal narrowing LEFT greater than RIGHT. 6. Mild disc osteophyte complex L5-S1 slightly contacts the LEFT S1 nerve root .
== END 2024-01-24 09:15 | disposition home or self-care (01) ==
PROVIDERS: PCP Family Medicine; Visit Provider Family Medicine
DX: M51.26 Other intervertebral disc displacement, lumbar region (principal); M47.896 Other spondylosis, lumbar region
CPT/HCPCS: 72148

== ENCOUNTER → 2024-02-21 09:53 | Outpatient (BNVA) | payer OTHER, SELFPAY | PROVIDERS: PCP Family Medicine; Visit Provider Nurse Practitioner Psychiatric/Mental Health | DX: F33.3 Major depressive disorder, recurrent, severe with psychotic symptoms (principal); F43.10 Post-traumatic stress disorder, unspecified; F60.3 Borderline personality disorder | CPT/HCPCS: 80061; 83036 ==

== ENCOUNTER 2024-06-21 16:35 | Inpatient (IN) | payer MEDICAID, SELFPAY ==
[2024-06-18 09:17] VITALS: BP 127/76; BMI 28.2
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
--- NOTE | 2024-06-21 16:40 | ECG_ITS ---
[facility]: 2024-06[facility]21 Pat Name: Jacobo Garsia Department: Room: Gender: Male Project Management Specialist: : 1970 Requested By: Becki Landry Order Number: [id number] Mahmood MD: Alden Jeffers M.D. Measurements Intervals Bode Rate: 102 P: 62 OR: 139 QRS: 39 QRSD: 102 T: 54 QT: 345 QTc: 450 Interpretive Statements SINUS TACHYCARDIA Compared to ECG 01/13/2023 03:37:22 Myocardial infarct finding no longer present Electronically Signed On 06-23-2024 13:21:50 SENIOR MANAGER ASSET PROTECTION by Alden Jeffers M.D. [email or web address]
[2024-06-21 16:54] VITALS: BP 157/102; PULSE 115; RESP 18; TEMP 36.7; O2SAT 95
[2024-06-21 17:26] VITALS: BP 150/100; O2SAT 98
[2024-06-21] MEDS: ziprasidone 20 mg/mL SDV IM (17:29)
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
[2024-06-21 18:03] LABS: Basophils # 0.1 10^3/uL (0.0-0.1); Basophils % 0.8 %; Eosinophils # 0.1 10^3/uL (0.0-0.8); Eosinophils % 1.1 %; Hematocrit 43.3 % (37-53); Lymphocytes # 2.8 10^3/uL (0.8-4.8); Lymphocytes % 35.6 %; Mean Corpuscular HGB Conc 35.1 g/dL (30-55); Mean Corpuscular Hemoglobin 29.4 pg (27-33); Mean Corpuscular Volume 83.8 fl (82-101); Monocytes # 0.7 10^3/uL (0.2-0.9); Monocytes % 8.4 %; Neutrophils # 4.21 10^3/uL (1.8-7.7); Neutrophils % 53.5 %; Nucleated Red Blood Cells % 0 %; Platelet Count 226 10^3/cmm (157-399); Red Blood Count 5.17 10^6/uL (3.85-5.65); Red Cell Distribution Width 14.6 % (12.1-15.1); White Blood Count 7.87 10^3/uL (3.29-11.43)
[2024-06-21 18:19] LABS: Alanine Aminotransferase 83 U/L (0-41); Albumin Level 4.6 g/dL (3.5-5.2); Alkaline Phosphatase 70 U/L (40-130); Anion Gap 19.4 (5-19); Aspartate Amino Transferase 80 U/L (0-40); Blood Urea Nitrogen 10 mg/dL (6-20); Calcium 9.5 mg/dL (8.5-10.5); Carbon Dioxide 25 mmol/L (22-29); Chloride 104 mmol/L (98-107); Globulin 2.8 g/dL (1.3-4.6); Glomerular Filtration Rate 101.9 mL/min (90-130); Glucose 114 mg/dL (65-115); Osmolality Calculated 300 mOsm/kg (285-295); Potassium 3.4 mmol/L (3.5-5.1); Salicylate 1.2 mg/dL (3-10); Sodium 145 mmol/L (136-145); Total Bilirubin 0.3 mg/dL (0.15-1.2); Total Protein 7.4 g/dL (6.6-8.7)
[2024-06-21 18:21] LABS: Acetaminophen < 5.0 ug/mL (10-30)
[2024-06-21 18:22] LABS: Alcohol Level 317 mg/dL (0-10)
[2024-06-21 18:26] LABS: Bilirubin Urine Negative (Negative); Blood Urine Negative (Negative); Glucose Urine UA Negative (Normal); Ketones Urine Trace (Negative); Leukocyte Esterase Urine Negative (Negative); Nitrate Urine Negative (Negative); Protein Urine 1+ (Negative); Specific Gravity, Urine 1.015 (1.005-1.030); Urine Appearance Cloudy (CLEAR); Urine Color Yellow (Yellow); pH Urine 7.5 (5-7)
--- NOTE | 2024-06-21 18:27 | PC.NURSE ---
96 hour hold rights read and reviewed with patient. Med from Security present during reading of rights. Patient verbalized understandings. Copy of rights given to patient.
[2024-06-21 18:31] LABS: Bacteria Urine None Seen /hpf; Hyaline Casts Urine 2.05 /lpf; RBC Urine 0-2 /hpf (0-2); Squamous Epithelial Cell Urine 0-5 /hpf (0-5); WBC Urine 0-5 /hpf (0-5)
[2024-06-21 18:36] LABS: Amphetamines Screen Urine Negative (Negative); Barbiturates Screen Urine Negative (Negative); Benzodiazepines Screen Urine Negative (Negative); Cocaine Screen Urine Negative (Negative); Opiate Screen Urine Negative (Negative); PCP Screen Urine Negative (Negative); THC Screen Urine Negative (Negative)
[2024-06-21 18:43] LABS: Covid PCR NEGATIVE (Negative); Influenza A NEGATIVE (Negative); Influenza B NEGATIVE (Negative); Respiratory Syncytial Virus Ce NEGATIVE (Negative)
--- NOTE | 2024-06-21 19:55 | PC.NURSE ---
ASSUMED CARE OF PT AT 1900
[2024-06-21 22:47] VITALS: BP 128/80; PULSE 106; RESP 14; O2SAT 95
--- NOTE | 2024-06-22 02:00 | PC.NURSE ---
Pt. resting in room with no complaints at this time.
--- NOTE | 2024-06-22 05:15 | PC.NURSE ---
Pt. resting in bed with sitter at the door. Pt. has no complaints or needs at this time.
[2024-06-22 05:52] LABS: Alcohol Level < 10 mg/dL (0-10)
--- NOTE | 2024-06-22 14:09 | PC.NURSE ---
report called to [facility] in [facility], no further questions; security notified for transport
[2024-06-22 14:29] VITALS: BP 147/103; PULSE 93; RESP 16; TEMP 36.9; O2SAT 95
[2024-06-22] MEDS: multivitamin therapeutic Tablet 1 TAB PO (15:13)
[2024-06-22] MEDS: nicotine 2 mg Gum BUCCAL (15:13)
[2024-06-22] MEDS: OLANZapine 5 mg ODT PO (16:20)
[2024-06-22 21:23] VITALS: BP 116/75; PULSE 79; RESP 16; TEMP 36.8; O2SAT 96
[2024-06-22] MEDS: amitriptyline 25 mg Tablet 50 MG PO (22:05)
[2024-06-22] MEDS: trazodone 50 mg Tablet PO (22:07)
[2024-06-22] MEDS: hyDROXYzine 25 mg Capsule 50 MG PO (22:07)
[2024-06-22 23:59] VITALS: BP 127/82; PULSE 84; RESP 18; TEMP 36.6; O2SAT 97
[2024-06-23] VITALS (7 sets, daily range): BP systolic 115–138; BP diastolic 75–93; PULSE 84–99; RESP 18; TEMP 36.3–36.9; O2SAT 95–97
[2024-06-23] MEDS: naltrexone hcl 50 mg Tablet PO (08:02)
[2024-06-23] MEDS: folic acid 1 mg Tablet PO (08:02)
[2024-06-23] MEDS: duloxetine 60 mg Capsule PO (08:02)
[2024-06-23] MEDS: multivitamin therapeutic Tablet 1 TAB PO (08:03)
[2024-06-23] MEDS: thiamine 100 mg Tablet PO (08:03)
[2024-06-23] MEDS: BuSPIRONE 10 mg Tablet 15 MG PO ×2 (08:03→17:49)
[2024-06-23] MEDS: OLANZapine 5 mg ODT PO (08:28)
--- NOTE | 2024-06-23 12:05 | P.NPUHP_ITS ---
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 and had been off of his medications which were restarted at appropriate doses. He was able to work with the social work team to identify sober living resources for treatment. He was able to discharge directly to [facility] for inpatient addiction treatment. He had significant improvement and was able to contract for safety outside of the hospital prior to discharge. During the hospitalization, patient had routine laboratory studies which were within normal limits except for few outliers. Additionally there was a general medical evaluation which was also within normal limits and revealed no new acute processes. At the time of discharge, he denied psychosis or lethality. Mood and anxiety were well managed. Patient endorsed a plan to avoid all drugs of abuse and follow-up with the aftercare recommendations of the treatment team. Patient was evaluated and deemed to be absent credible lethality, and had achieved the maximum benefit from an inpatient hospitalization, so was discharged. Hospital Course During the hospitalization, the patient had routine laboratory studies which were within normal limits except for a few outliers. Additionally, there was a general medical evaluation which was also within normal limits and revealed no new acute processes. At the time of discharge, lethality was denied and psychosis was resolving. Mood and anxiety were well managed. The patient endorsed a plan to avoid all drugs of abuse and follow up with the aftercare recommendations of the treatment team. The patient was evaluated and deemed to be absent credible lethality and had achieved the maximum benefit from an inpatient hospitalization, and so was discharged. Cymbalta was increased to 90 mg and BuSpar was increased to 10 mg twice a day prior to discharge. The patient was agreeable to immediate placement at an inpatient substance abuse treatment facility to target his alcohol abuse and was admitted to [facility] for further treatment on an inpatient basis. Meds NPU Home Medications Medication Instructions Recorded Confirmed Last Taken Type amitriptyline 50 mg tablet 50 mg PO .q hs #30 tabs 06/14/24 06/22/24 Unknown Rx buspirone 15 mg tablet 15 mg PO BID #60 tabs 06/14/24 06/22/24 Unknown Rx duloxetine 60 mg capsule,delayed 60 mg PO .q am #30 caps 06/14/24 06/22/24 Unknown Rx release naltrexone 50 mg tablet 50 mg PO .Every morning #30 tabs 06/14/24 06/22/24 Unknown Rx latanoprost 0.005 % eye drops 1 drp ophthalmic (eye) QPM 06/22/24 06/22/24 Unknown History Allergies Allergy/AdvReac Type Severity Reaction Status Date / Time No Known Allergies Allergy Verified 05/08/24 14:15 PFSH NPU 2 PFSH: Medical History Nicotine addiction Alcohol use disorder, severe, in early remission, dependence Depression Alcohol use disorder Alcohol abuse Major depressive disorder, recurrent, severe with psychotic symptoms Homelessness Alcohol dependence Depression Depression with suicidal ideation Psychiatric care Family History Other Adopted Social History Smoking and tobacco/nicotine status: current every day tobacco/nicotine user cigarettes Packs smoked per day: 0.5 Years cigarettes smoked: 37 Quit status (tobacco/nicotine): has tried quititng Number of times tried to quit tobacco: 3 Second hand smoke exposure: Yes Alcohol intake: former Former alcohol use details: 09.30.23 last use Substance/Drug Use: former Former substance use details: 4 years since last use Adopted: Yes Caregiver/support person: No Lives independently: No Household members: other Details: Sober living facility - 7 other people live there Housing: Other Details: Sober living facility Marital status: Marital status details: 21 years ago Number of children: 1 Number of grandchildren: 0 Highest education level completed: GED or Equivalent service: No Current occupational status: other Details: filed for disability, in the appeal process Pets and animals: No Leisure activites: reading Do you think of yourself as: Straight/Heterosexual Current gender identity: Male Karen/Anabaptist: None Special karen needs: No Agree to transfusion: Yes Mental Status Exam 2 MSE Comments: This is an obese white male in hospital scrubs with poor grooming and intermittent eye contact. No abnormal movements were appreciated except for moderate psychomotor retardation. He was mostly cooperative with exam in mild to moderate distress. Speech was decreased rate and volume. Mood described as depressed. His affect was flat and mood congruent. Thought process was linear and organized. Thought contact: He endorsed suicidal ideation, but he denied any homicidal ideation, there were no delusions reported or noted, patient denied auditory or visual hallucinations. Attention and concentration appeared intact and memory appeared reliable but none were formally tested. Patient is alert and oriented to person, place time and situation. Insight was poor. Judgment and impulse control appears impaired. Vitals/I&O/Wt Last Vital Signs Temp 97.6 F 06/23/24 12:00 Pulse 94 06/23/24 12:00 Resp 18 06/23/24 12:00 BP 122/88 06/23/24 12:00 Pulse Ox 96 06/23/24 12:00 O2 Del Method Room Air 06/23/24 04:00 Data NPU 06/21/24 17:25 06/21/24 17:25 A&P Assessment and plan (1) Major depressive disorder, recurrent: Qualifiers: Active/Remission status: currently active Major depression episode severity: severe Psychotic features: without psychotic features Qualified Code(s): F33.2 - Major depressive disorder, recurrent severe without psychotic features (2) Alcohol dependence: (3) Borderline personality disorder: (4) Suicidal ideation: (5) PTSD (post-traumatic stress disorder): Plan This is a 53-year-old male known through past hospitalization with depression, PTSD, borderline personality disorder and alcohol dependence once again admitted with suicidal ideation currently homeless and active addiction with alcohol primarily. 1. Review his medication and consider which ones to restart at what doses versus consider a new medication. We discussed considering acamprosate or other medication to assist with alcohol use. 2. Continue every 15 minute checks for safety. 3. Encourage individual, group and milieu therapies. 4. Encourage sober living treatment after discharge at the highest level of care to which he is willing to commit. 5. [facility] protocol Involuntary Hold Information 2 96 Hour Hold: 96 Hour Involuntary Admission: Yes 96 Hour Hold Ending Date: 06/27/24 96 Hour Hold Ending Time: 16:40 Other Hold: Hold End Date: 06/27/24 Attestations NPU 2 Medical Necessity Statement*: Inpatient hospitalization is medically necessary and?the clinically appropriate intervention at this time.? We will monitor/initiate medications and make changes as indicated.? The patient will be in the hospital for over 2 midnights.? The patient?s likely length of stay is 4-6 days. Coding Level of Care Code Acute Code for Chg Fwd Diagnoses Severe episode of recurrent major depressive disorder, without psychotic features F33.2 Active/Remission status: currently active Major depression episode severity: severe Psychotic features: without psychotic features Alcohol dependence F10.20 Borderline personality disorder F60.3 Suicidal ideation R45.851 PTSD (post-traumatic stress disorder) F43.10
[2024-06-23] MEDS: nicotine 4 mg lozenge MUCOUS MEM ×2 (12:30→19:46)
[2024-06-23] MEDS: haloperidol 5 mg Tablet PO (12:32)
[2024-06-23] MEDS: hyDROXYzine 25 mg Capsule 50 MG PO (21:45)
[2024-06-23] MEDS: trazodone 50 mg Tablet PO (21:45)
[2024-06-23] MEDS: amitriptyline 25 mg Tablet 50 MG PO (21:45)
[2024-06-24] MEDS: OLANZapine 5 mg ODT PO ×3 (03:35→20:08)
[2024-06-24 03:51] VITALS: BP 118/86; PULSE 98; RESP 18; TEMP 36.3; O2SAT 96
[2024-06-24 06:00] VITALS: BMI 29.3
[2024-06-24] MEDS: nicotine 4 mg lozenge MUCOUS MEM ×6 (06:02→20:21)
[2024-06-24 08:00] VITALS: BP 152/99; PULSE 95; RESP 18; TEMP 36.4; O2SAT 97
[2024-06-24] MEDS: multivitamin therapeutic Tablet 1 TAB PO (08:04)
[2024-06-24] MEDS: naltrexone hcl 50 mg Tablet PO (08:04)
[2024-06-24] MEDS: duloxetine 60 mg Capsule PO (08:04)
[2024-06-24] MEDS: BuSPIRONE 10 mg Tablet 15 MG PO ×2 (08:04→18:13)
[2024-06-24] MEDS: thiamine 100 mg Tablet PO (08:04)
[2024-06-24] MEDS: folic acid 1 mg Tablet PO (08:04)
--- NOTE | 2024-06-24 08:51 | P.NPUPN_ITS ---
Subjective NPU 2 Subjective: Patient presented today reporting that things are going better. He reports that he does have options as far as where he is going to go and what he plans to do but he continues to be somewhat ambivalent about how he is going to really do something different to avoid this repeated pattern. Staff report he is being less isolative and this is noted on direct observation. We discussed working with the social work team for appropriate discharge planning and identifying appropriate resources. He denied any side effects to the medication. Mental Status Exam 2 MSE Comments: This is an obese white male in hospital scrubs with improving grooming and eye contact. No abnormal movements were appreciated except for mild psychomotor retardation. He was cooperative with exam in mild distress. Speech was slightly decreased rate and volume. Mood described as better. His affect was congruent but subdued. Thought process was linear and organized. Thought contact: He denied suicidal or homicidal ideation, there were no delusions reported or noted, patient denied auditory or visual hallucinations. Attention and concentration appeared intact and memory appeared reliable but none were formally tested. Patient is alert and oriented to person, place time and situation. Insight was poor. Judgment and impulse control appears impaired. Vitals/I&O/Wt Last Vital Signs Temp 97.5 F L 06/24/24 08:00 Pulse 95 06/24/24 08:00 Resp 18 06/24/24 08:00 BP 152/99 06/24/24 08:00 Pulse Ox 97 06/24/24 08:00 O2 Del Method Room Air 06/24/24 08:00 Weight last 48 hrs Weight 95.481 kg Data NPU 06/21/24 17:25 06/21/24 17:25 A&P Assessment and plan (1) Major depressive disorder, recurrent: Qualifiers: Active/Remission status: currently active Major depression episode severity: severe Psychotic features: without psychotic features Qualified Code(s): F33.2 - Major depressive disorder, recurrent severe without psychotic features (2) Alcohol dependence: (3) Borderline personality disorder: (4) Suicidal ideation: (5) PTSD (post-traumatic stress disorder): Plan This is a 53-year-old male known through past hospitalization with depression, PTSD, borderline personality disorder and alcohol dependence once again admitted with suicidal ideation currently homeless and active addiction with alcohol primarily. 1. Review his medication and consider which ones to restart at what doses versus consider a new medication. We discussed considering acamprosate or other medication to assist with alcohol use. 2. Continue every 15 minute checks for safety. 3. Encourage individual, group and milieu therapies. 4. Encourage sober living treatment after discharge at the highest level of care to which he is willing to commit. 5. [facility] protocol Involuntary Hold Information 2 96 Hour Hold: 96 Hour Involuntary Admission: Yes 96 Hour Hold Ending Date: 06/27/24 96 Hour Hold Ending Time: 16:40 Other Hold: Hold End Date: 06/27/24 Attestations NPU 2 Medical Necessity Statement*: Inpatient hospitalization is medically necessary and?the clinically appropriate intervention at this time.? We will monitor/initiate medications and make changes as indicated.? The patient?s likely length of stay is 2-4 days. Coding Level of Care Code Acute Code for g Fwd Diagnoses Severe episode of recurrent major depressive disorder, without psychotic features F33.2 Active/Remission status: currently active Major depression episode severity: severe Psychotic features: without psychotic features Alcohol dependence F10.20 Borderline personality disorder F60.3 Suicidal ideation R45.851 PTSD (post-traumatic stress disorder) F43.10
[2024-06-24] MEDS: haloperidol 5 mg Tablet PO (11:22)
[2024-06-24 11:40] VITALS: BP 110/70; PULSE 95; RESP 18; TEMP 36.5; O2SAT 97
[2024-06-24 13:54] VITALS: BP 117/66; PULSE 111; RESP 17; O2SAT 97
[2024-06-24 16:17] VITALS: RESP 17
[2024-06-24] MEDS: latanoprost 0.005% Op Soln 2.5 mL Btl 1 DROP EYE-RIGHT (18:14)
[2024-06-24] MEDS: amitriptyline 25 mg Tablet 50 MG PO (20:08)
[2024-06-24 21:02] VITALS: BP 124/83; PULSE 110; RESP 18; TEMP 36.4; O2SAT 96
[2024-06-25] MEDS: nicotine 4 mg lozenge MUCOUS MEM ×5 (00:51→21:34)
[2024-06-25 05:58] VITALS: BP 106/78; PULSE 110; RESP 18; TEMP 36.6; O2SAT 96
[2024-06-25] MEDS: BuSPIRONE 10 mg Tablet 15 MG PO ×2 (08:22→17:40)
[2024-06-25] MEDS: thiamine 100 mg Tablet PO (08:23)
[2024-06-25] MEDS: duloxetine 60 mg Capsule PO (08:23)
[2024-06-25] MEDS: OLANZapine 5 mg ODT PO ×2 (08:23→17:53)
[2024-06-25] MEDS: folic acid 1 mg Tablet PO (08:23)
[2024-06-25] MEDS: multivitamin therapeutic Tablet 1 TAB PO (08:23)
[2024-06-25] MEDS: naltrexone hcl 50 mg Tablet PO (08:23)
[2024-06-25 14:00] VITALS: BP 117/86; PULSE 117; RESP 18; TEMP 36.5; O2SAT 97
--- NOTE | 2024-06-25 15:55 | W.PM.NPUPNS ---
Subjective NPU Subjective: Patient presented today reporting that he is doing okay. He was believing that his 96-hour hold was up but had not taken into consideration and into account the weekend. We discussed having communication from his outpatient team and working with him towards appropriate solutions and figuring out how we can get this turned around. He was very focused on a plan to get a new life partner. We discussed that that is not always something that is predictable and cannot really be the foundation of a treatment plan though he can work on being more available and less isolative to that end. He denied any side effects to the medication and we discussed working with his outpatient team on discharge planning and the next steps. Mental Status Exam MSE Comments: This is an obese white male in hospital scrubs with improving grooming and eye contact. No abnormal movements were appreciated except for mild psychomotor retardation. He was cooperative with exam in mild distress. Speech was slightly decreased rate and volume. Mood described as better. His affect was congruent and less subdued. Thought process was linear and organized. Thought contact: He denied suicidal or homicidal ideation, there were no delusions reported or noted, patient denied auditory or visual hallucinations. Attention and concentration appeared intact and memory appeared reliable but none were formally tested. Patient is alert and oriented to person, place time and situation. Insight was poor. Judgment and impulse control appears impaired. Vitals/I&O/Wt Last Vital Signs Temp 97.7 F 06/25/24 14:00 Pulse 117 H 06/25/24 14:00 Resp 18 06/25/24 14:00 BP 117/86 06/25/24 14:00 Pulse Ox 97 06/25/24 14:00 O2 Del Method Room Air 06/25/24 14:00 Weight last 48 hrs Weight 95.481 kg Data NPU 06/21/24 17:25 06/21/24 17:25 A&P Assessment and plan (1) Major depressive disorder, recurrent: Qualifiers: Active/Remission status: currently active Major depression episode severity: severe Psychotic features: without psychotic features Qualified Code(s): F33.2 - Major depressive disorder, recurrent severe without psychotic features (2) Alcohol dependence: (3) Borderline personality disorder: (4) Suicidal ideation: (5) PTSD (post-traumatic stress disorder): Plan This is a 53-year-old male known through past hospitalization with depression, PTSD, borderline personality disorder and alcohol dependence once again admitted with suicidal ideation currently homeless and active addiction with alcohol primarily. 1. Restarted medications. We discussed considering acamprosate or other medication to assist with alcohol use. 2. Continue every 15 minute checks for safety. 3. Encourage individual, group and milieu therapies. 4. Encourage sober living treatment after discharge at the highest level of care to which he is willing to commit. 5. [facility] protocol 6. Will get collateral information and consult with his outpatient team about their plans for increased services to help change his behavior pattern. Involuntary Hold Information 96 Hour Hold: 96 Hour Involuntary Admission: Yes 96 Hour Hold Ending Date: 06/27/24 96 Hour Hold Ending Time: 16:40 Other Hold: Hold End Date: 06/27/24 Attestations NPU Medical Necessity Statement*: Inpatient hospitalization is medically necessary and?the clinically appropriate intervention at this time.? We will monitor/initiate medications and make changes as indicated.? The patient?s likely length of stay is 1-3 days. Coding Level of Care Code Acute Code for [facility] Fwd Diagnoses Severe episode of recurrent major depressive disorder, without psychotic features F33.2 Active/Remission status: currently active Major depression episode severity: severe Psychotic features: without psychotic features Alcohol dependence F10.20 Borderline personality disorder F60.3 Suicidal ideation R45.851 PTSD (post-traumatic stress disorder) F43.10
[2024-06-25] MEDS: latanoprost 0.005% Op Soln 2.5 mL Btl 1 DROP EYE-RIGHT (17:37)
--- NOTE | 2024-06-25 17:54 | PC.NURSE ---
PRN ZYPREXA ZYDIS 5 MG GIVEN PO PER PT REQUEST
[2024-06-25] MEDS: amitriptyline 25 mg Tablet 50 MG PO (21:34)
[2024-06-25 22:00] VITALS: BP 139/98; PULSE 112; RESP 18; TEMP 36.5; O2SAT 98
[2024-06-26 06:00] VITALS: BP 144/87; PULSE 95; RESP 18; TEMP 36.6; O2SAT 97
[2024-06-26] MEDS: nicotine 4 mg lozenge MUCOUS MEM ×3 (06:40→10:30)
[2024-06-26] MEDS: multivitamin therapeutic Tablet 1 TAB PO (08:27)
[2024-06-26] MEDS: naltrexone hcl 50 mg Tablet PO (08:28)
[2024-06-26] MEDS: thiamine 100 mg Tablet PO (08:28)
[2024-06-26] MEDS: folic acid 1 mg Tablet PO (08:28)
[2024-06-26] MEDS: BuSPIRONE 10 mg Tablet 15 MG PO (08:28)
[2024-06-26] MEDS: duloxetine 60 mg Capsule PO (08:28)
--- NOTE | 2024-06-26 10:38 | W.PM.NPUDCS ---
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 he/him/his Language(s) Spoken: Croatian Custody/Guardianship: N/A Highest Education Level Reached: high school (dropped out 11th grade but have my GED); academic performance at grade level Extracurricular Activities: None; special accommodations: none; disciplinary actions: frequent Hospital Course During the hospitalization, the patient had routine laboratory studies which were within normal limits except for a few outliers. Additionally, there was a general medical evaluation which was also within normal limits and revealed no new acute processes. At the time of discharge, lethality was denied and psychosis was resolving. Mood and anxiety were well managed. The patient endorsed a plan to avoid all drugs of abuse and follow up with the aftercare recommendations of the treatment team. The patient was evaluated and deemed to be absent credible lethality and had achieved the maximum benefit from an inpatient hospitalization, and so was discharged. Cymbalta was increased to 90 mg and BuSpar was increased to 10 mg twice a day prior to discharge. The patient was agreeable to immediate placement at an inpatient substance abuse treatment facility to target his alcohol abuse and was admitted to [facility] for further treatment on an inpatient basis. Hospital Course Hospital Course He slowly acclimated to the individual, group and milieu therapies provided. He presented with concerns about active addiction and had been off of his medications which were restarted at appropriate doses. He was able to work with the social work team to identify sober living resources for treatment. He was able to discharge directly to [facility] for inpatient addiction treatment. He had significant improvement and was able to contract for safety outside of the hospital prior to discharge. During the hospitalization, patient had routine laboratory studies which were within normal limits except for few outliers. Additionally there was a general medical evaluation which was also within normal limits and revealed no new acute processes. At the time of discharge, he denied psychosis or lethality. Mood and anxiety were well managed. Patient endorsed a plan to avoid all drugs of abuse and follow-up with the aftercare recommendations of the treatment team. Patient was evaluated and deemed to be absent credible lethality, and had achieved the maximum benefit from an inpatient hospitalization, so was discharged. Involuntary Hold Information 96 Hour Hold: 96 Hour Involuntary Admission: Yes 96 Hour Hold Ending Date: 06/27/24 96 Hour Hold Ending Time: 16:40 Other Hold: Hold End Date: 06/27/24 Mental Status Exam MSE Comments: This is an obese white male in hospital scrubs with improving grooming and eye contact. No abnormal movements were appreciated except for mild psychomotor retardation. He was cooperative with exam in mild distress. Speech was slightly decreased rate and volume. Mood described as better. His affect was congruent and less subdued. Thought process was linear and organized. Thought contact: He denied suicidal or homicidal ideation, there were no delusions reported or noted, patient denied auditory or visual hallucinations. Attention and concentration appeared intact and memory appeared reliable but none were formally tested. Patient is alert and oriented to person, place time and situation. Insight was poor. Judgment and impulse control appears impaired. Discharge Data Studies Completed and Pending: Completed Studies During Hospitalization Category Date Time Status XR chest 1V lisa ble [id number] Stat Exams 06/21/24 17:36 Completed Radiology Impressions Chest X-Ray 06/21/24 17:36 IMPRESSION: As above. Laboratory Results WBC 7.87 10^3/uL (3.2 9-11.43) 06/21/24 17:25 RBC 5.17 10^6/uL (3.8 5-5.65) 06/21/24 17:25 Hgb 15.20 g/dL (11.27 -16.99) 06/21/24 17:25 Hct 43.3 % (37-53) 06/21/24 17:25 MCV 83.8 fl (82-101) 06/21/24 17:25 MCH 29.4 pg (27-33) 06/21/24 17: MCHC 35.1 g/dL (30-55) 06/21/24 17: RDW 14.6 % (12.1-15.1 ) 06/21/24 17: Plt Count 226 10^3/cmm (157 -399) 06/21/24 17:25 MPV 11.0 fL (7.4-10.4 ) H 06/21/24 17:25 Neut % (Auto) 53.5 % 06/21/24 17:25 Lymph % (Auto) 35.6 % 06/21/24 17:25 Towns % (Auto) 8.4 % 06/21/24 17:25 Eos % (Auto) 1.1 % 06/21/24 17:25 Baso % (Auto) 0.8 % 06/21/24 17:25 Neut # (Auto) 4.21 10^3/uL (1.8 -7.7) 06/21/24 17:25 Lymph # (Auto) 2.8 10^3/uL (0.8- 4.8) 06/21/24 17:25 Towns # (Auto) 0.7 10^3/uL (0.2- 0.9) 06/21/24 17:25 Eos # (Auto) 0.1 10^3/uL (0.0- 0.8) 06/21/24 17:25 Baso # (Auto) 0.1 10^3/uL (0.0- 0.1) 06/21/24 17:25 Nucleated RBC % (a uto) 0 % 06/21/24 17: Nucleated RBCs # 0.0 /100WBC 06/21/24 17:25 Sodium 145 mmol/L (136-1 45) 06/21/24 17:25 Potassium 3.4 mmol/L (3.5-5 .1) L 06/21/24 17:25 Chloride 104 mmol/L (98-10 7) 06/21/24 17:25 Carbon Dioxide 25 mmol/L (22-29) 06/21/24 17:25 Anion Gap 19.4 (5-19) H 06/21/24 17:25 BUN 10 mg/dL (6-20) 06/21/24 17:25 Creatinine 0.8 mg/dL (0.7-1. 2) 06/21/24 17:25 GFR Calculation 101.9 mL/min (90- 130) 06/21/24 17:25 Glucose 114 mg/dL (65-115 ) 06/21/24 17:25 Calculated Osmolal ity 300 mOsm/kg (285- 295) H 06/21/24 17:25 Calcium 9.5 mg/dL (8.5-10 .5) 06/21/24 17:25 Total Bilirubin 0.3 mg/dL (0.15-1 .2) 06/21/24 17:25 AST 80 U/L (0-40) H 06/21/24 17:25 ALT 83 U/L (0-41) H 06/21/24 17:25 Alkaline Phosphata se 70 U/L (40-130) 06/21/24 17:25 Total Protein 7.4 g/dL (6.6-8.7 ) 06/21/24 17:25 Albumin 4.6 g/dL (3.5-5.2 ) 06/21/24 17:25 Globulin 2.8 g/dL (1.3-4.6 ) 06/21/24 17:25 Urine Color Yellow (Yellow) 06/21/24 17:26 Urine Appearance Cloudy (CLEAR) A 06/21/24 17:26 Urine pH 7.5 (5-7) 06/21/24 17:26 Ur Specific Gravit y 1.015 (1.005-1.0 30) 06/21/24 17:26 Urine Protein 1+ (Negative) A 06/21/24 17:26 Urine Glucose (UA) Negative (Normal ) 06/21/24 17:26 Urine Ketones Trace (Negative) 06/21/24 17:26 Urine Blood Negative (Negati ve) 06/21/24 17:26 Urine Nitrate Negative (Negati ve) 06/21/24 17:26 Urine Bilirubin Negative (Negati ve) 06/21/24 17:26 Urine Urobilinogen 1.0 mg/dL (Negati ve) 06/21/24 17:26 Ur Leukocyte Debra ase Negative (Negati ve) 06/21/24 17:26 Urine RBC 0-2 /hpf (0-2) 06/21/24 17:26 Urine WBC 0-5 /hpf (0-5) 06/21/24 17:26 Ur Squamous Epith Cells 0-5 /hpf (0-5) 06/21/24 17:26 Amorphous Sediment Not Reportable 06/21/24 17:26 Urine Bacteria None seen /hpf (N ONE) 06/21/24 17:26 Hyaline Casts 2.05 /lpf 06/21/24 17:26 Salicylates 1.2 mg/dL (3-10) L 06/21/24 17:25 Urine Opiates Scre en Negative ng/mL (N egative) 06/21/24 17:26 Acetaminophen < 5.0 ug/mL (10-3 0) L 06/21/24 17:25 Ur Barbiturates Sc reen Negative ng/mL (N egative) 06/21/24 17:26 Ur Phencyclidine S crn Negative ng/mL (N egative) 06/21/24 17:26 Ur Amphetamines Sc reen Negative ng/mL (N egative) 06/21/24 17:26 U Benzodiazepines Scrn Negative ng/mL (N egative) 06/21/24 17:26 Urine Cocaine Scre en Negative ng/mL (N egative) 06/21/24 17:26 U Marijuana (THC) Screen Negative ng/mL (N egative) 06/21/24 17:26 Ethyl Alcohol < 10 mg/dL (0-10) 06/22/24 05:21 Coronavirus (PCR) Negative (Negati ve) 06/21/24 17:50 Influenza A (PCR) Negative (Negati ve) 06/21/24 17:50 Influenza Type B ( PCR) Negative (Negati ve) 06/21/24 17:50 RSV (PCR) Negative (Negati ve) 06/21/24 17:50 Vitals: Last Vital Signs Temp 97.9 F 06/26/24 06:00 Pulse 95 06/26/24 06:00 Resp 18 06/26/24 06:00 BP 144/87 06/26/24 06:00 Pulse Ox 97 06/26/24 06:00 O2 Del Method Room Air 06/26/24 06:00 Discharge Plan Discharge Patient Disposition: Home Condition: Stable Prescriptions: New trazodone 50 mg Tablet 50 mg PO BEDTIME PRN (Reason: Sleep) 30 Days Qty: 3 1RF thiamine mononitrate (vit B1) [Vitamin B-1 (mononitrate)] 100 mg Tablet 100 mg PO DAILY 30 Days Qty: 30 1RF Continued latanoprost 0.005 % drops 1 drp ophthalmic (eye) QPM naltrexone 50 mg tablet 50 mg PO .Every morning Qty: 30 1RF Rx Instructions: Take 1 tablet by mouth every morning amitriptyline 50 mg tablet 50 mg PO .q hs Qty: 30 1RF Rx Instructions: Take one tablet daily at bedtime buspirone 15 mg tablet 15 mg PO BID Qty: 60 1RF Rx Instructions: Take one tablet morning and evening duloxetine 60 mg capsule,delayed release(DR/EC) 60 mg PO .q am Qty: 30 1RF Rx Instructions: Take one capsule by mouth every morning Discharge Orders: Discharge Order (Routine); Ordered 06/26/24 Ordered By: Mono Aguilera Referrals: Sherry Lackey [Mortgage Loan Originator] - 06/28/24 2:00 pm Vicki Paredes APRN [Nurse Practitioner] - 07/06/24 10:45 am Kevin Rubio MD [Primary Care Provider] - Ada Arrington LMSW [Therapist] - 07/03/24 9:45 am Discharge Diet: Regular Discharge Activity: Resume usual activity Patient Instructions: Opioid Safety Discharge Attestations NPU Time Spent in Discharge Care*: less than 30 min Specific Discharge Activities: Specific discharge activities: educating patient, discussing with case management manager/social workers/dc planners, documenting/other paperwork and evaluating patient/reviewing data Coding Level of Care Code Acute Code for Chg Fwd Diagnoses Severe episode of recurrent major depressive disorder, without psychotic features F33.2 Active/Remission status: currently active Major depression episode severity: severe Psychotic features: without psychotic features Alcohol dependence F10.20 Borderline personality disorder F60.3 Suicidal ideation R45.851 PTSD (post-traumatic stress disorder) F43.10
[2024-06-26 10:58] VITALS: BP 112/72; PULSE 83; RESP 16; TEMP 36.5; O2SAT 97
== END 2024-06-26 12:37 | disposition home or self-care (01) | DRG 885 ==
LOC: ER 18:38 → NP 06-22 14:27
PROVIDERS: Physician Assistant; Admitting Provider Psychiatry & Neurology Psychiatry; Emergency Provider Emergency Medicine; PCP Family Medicine; Visit Provider Psychiatry & Neurology Psychiatry
DX: F33.2 Major depressive disorder, recurrent severe without psychotic features (principal); R45.851 Suicidal ideations; F10.20 Alcohol dependence, uncomplicated; F60.3 Borderline personality disorder; F43.10 Post-traumatic stress disorder, unspecified; E66.9 Obesity, unspecified; Z68.29 Body mass index [BMI] 29.0-29.9, adult
CPT/HCPCS: 36415; 71045; 80053; 80306; 80307; 81001; 85025; 87637; 93005; 96372; 97150; 97165; 99285; J3486

== ENCOUNTER 2024-06-28 12:45 | Outpatient (CLI) | payer MEDICAID, SELFPAY ==
[2024-06-18 09:17] VITALS: BP 127/76; BMI 28.2
--- NOTE | 2024-06-28 12:49 | XR_ITS ---
WS: [id number] Lumbar spine with flexion, extension, and neutral lateral, 06/28/2024 Clinical Data: spondylolisthesis Comparison: None. Findings: No compression fractures or subluxation is seen. There is degenerative disc narrowing at L5-S1 with prominent bridging osteophytes. There is minimal osteoarthritic spurring at L4. No instability is seen. XR/XR lumbar spine f/e only [id number] Impression: 1. Degenerative disc narrowing at L5-S1 with bridging osteophytes. 2. Osteoarthritis L4. 3. No instability on flexion or extension.
== END 2024-06-28 12:46 | disposition home or self-care (01) ==
LOC: RAD 12:46
PROVIDERS: PCP Family Medicine; Visit Provider Nurse Practitioner
DX: M43.16 Spondylolisthesis, lumbar region (principal); M51.379 Other intervertebral disc degeneration, lumbosacral region without mention of lumbar back pain or lower extremity pain; M25.78 Osteophyte, vertebrae; M47.896 Other spondylosis, lumbar region
CPT/HCPCS: 72120

== ENCOUNTER → 2024-10-22 14:00 | Outpatient (BNVA) | payer MEDICAID, SELFPAY ==
[2024-09-24 15:49] VITALS: BP 127/76; BMI 28.2
== END ==
PROVIDERS: PCP Family Medicine; Visit Provider Internal Medicine
DX: R07.9 Chest pain, unspecified (principal)
CPT/HCPCS: 93005

== ENCOUNTER 2024-10-31 11:21 | Inpatient (IN) | payer MEDICAID, SELFPAY ==
[2024-09-24 15:49] VITALS: BP 127/76; BMI 28.2
[2024-10-31 11:26] VITALS: BP 166/108; PULSE 129; RESP 16; TEMP 37.1; O2SAT 95
--- NOTE | 2024-10-31 11:36 | W.ED.PSYCHS ---
HPI - Psych General: Chief Complaint: Psychiatric Symptoms Stated Complaint: SI Time Seen by Provider: 10/31/24 11:22 History of Present Illness: 54-year-old male presents emergency room with complaints of suicidal ideation. Patient has been drinking heavily today he does drink regularly. Has plans to either shoot himself or stab himself he said multiple hospitalizations for suicidal ideation in the past. He was recently seen at [facility] [place] had some medication changes but cannot recall what it was they did. Related Data Home Medications ?Medication ?Instructions ?Recorded ?Confirmed latanoprost 0.005 % eye drops 1 drp ophthalmic (eye) QPM 06/22/24 10/31/24 timolol 0.5 % eye drops 1 drp ophthalmic (eye) BID 07/06/24 10/31/24 budesonide-formoterol HFA 160 1 puff inhalation BID 08/31/24 10/31/24 mcg-4.5 mcg/actuation aerosol inhaler (Symbicort) amitriptyline 50 mg tablet 50 mg PO BEDTIME 10/31/24 10/31/24 aripiprazole 5 mg tablet 5 mg PO BEDTIME 10/31/24 10/31/24 nicotine (polacrilex) 2 mg buccal See Rx Instructions .Route .COMPLEX 10/31/24 10/31/24 lozenge Previous Rx's ?Medication ?Instructions ?Recorded buspirone 10 mg tablet 20 mg (2 x 10 mg) PO BID #120 tabs 08/31/24 duloxetine 60 mg capsule,delayed 120 mg (2 x 60 mg) PO .q am #60 08/31/24 release caps naltrexone 50 mg tablet 50 mg PO .Every morning #30 tabs 08/31/24 amlodipine 5 mg tablet 5 mg PO DAILY #90 tabs 10/22/24 Allergies Allergy/AdvReac Type Severity Reaction Status Date / Time neomycin Allergy ALGY-Redness Verified 10/22/24 14:14 of Skin Review of Systems Const: Denies: fever(s) or chills Card: Denies: chest pain Resp: Denies: dyspnea GI: Denies: abdominal pain : Denies: dysuria, urinary frequency or urinary urgency Musc: Denies: neck pain or back pain Skin/Breast: Denies: rash PFSH ED PFSH: Medical History Depression Nicotine addiction Alcohol use disorder, severe, in early remission, dependence Depression Alcohol use disorder Alcohol abuse Major depressive disorder, recurrent, severe with psychotic symptoms Homelessness Alcohol dependence Depression Depression with suicidal ideation Psychiatric care Family History Other Adopted Social History Smoking and tobacco/nicotine status: current every day tobacco/nicotine user (smoke and vape) cigarettes Packs smoked per day: 0.5 Years cigarettes smoked: 37 Quit status (tobacco/nicotine): has tried quititng Number of times tried to quit tobacco: 3 Second hand smoke exposure: Yes Alcohol intake: former Former alcohol use details: 09.30.23 last use Substance/Drug Use: former Former substance use details: 4 years since last use Adopted: Yes Caregiver/support person: No Lives independently: No Household members: other Details: Sober living facility - 7 other people live there Housing: Other Details: Sober living facility Marital status: Marital status details: 21 years ago Number of children: 1 Number of grandchildren: 0 Highest education level completed: GED or Equivalent service: No Current occupational status: other Details: filed for disability, in the appeal process Pets and animals: No Leisure activites: reading Do you think of yourself as: Straight/Heterosexual Current gender identity: Male Karen/Spiritism: None Special karen needs: No Agree to transfusion: Yes Physical Exam Const: GENERAL APPEARANCE: cooperative ORIENTATION/CONSCIOUSNESS: Yes awake, Yes oriented to person, Yes oriented to place and Yes oriented to time HENMT: COMMON NORMALS: normocephalic, atraumatic and hearing grossly normal bilaterally HEAD & SCALP: normocephalic and atraumatic Resp: COMMON NORMALS: normal respiratory effort, No retractions, No use of accessory muscles and clear to auscultation bilaterally AUSCULTATION: clear to auscultation bilaterally Cardio: COMMON NORMALS: regular rate, regular rhythm and No murmurs present (Cardio) RATE: regular rate RHYTHM: regular rhythm GI: COMMON NORMALS: Soft to palpation and No hepatosplenomegaly present AUSCULTATION: Yes normoactive bowel sounds PALPATION: Yes Soft to palpation, No Tenderness to palpation present (GI), No Guarding due to palpation present (GI) and Yes No hepatosplenomegaly present Extremity: COMMON NORMALS: normal to inspection, capillary refill normal, no clubbing, cyanosis or edema, no calf tenderness and no pedal edema Neuro: SENSORIUM/ORIENTATION: Yes oriented to person, Yes oriented to place and Yes oriented to time Skin: COMMON NORMALS: no rashes or lesions noted GENERAL SKIN EXAM: no rashes or lesions noted Course Vital Signs: Vital signs: Vital Signs Temperature 98.2 F 10/31/24 13:54 Pulse Rate 110 H 10/31/24 13:54 Respiratory Rate 17 10/31/24 13:54 Blood Pressure 153/97 10/31/24 13:54 Pulse Oximetry 95 10/31/24 13:54 Oxygen Delivery Me thod Room Air 10/31/24 14:01 [facility] - Psych Medical Decision Making Patient presents with suicidal ideation he is also heavily intoxicated. He is not having any signs of withdrawal. Blood alcohol is greater than 200 although he is fully functional at this level. Discussed with Dr. Deutsch. Will admit to the MPU under 96-hour hold for suicidal ideation orders written Medical Records I reviewed the patient's medical records. Lab Data I reviewed the patient's lab results. 10/31/24 11:44 10/31/24 11:44 Laboratory Results WBC 10.81 10^3/uL (3.29-11.43) 10/31/24 11:44 RBC 5.46 10^6/uL (3.85-5.65) 10/31/24 11:44 Hgb 15.50 g/dL (11.27-16.99) 10/31/24 11:44 Hct 46.1 % (37-53) 10/31/24 11:44 MCV 84.4 fl (82-101) 10/31/24 11:44 MCH 28.4 pg (27-33) 10/31/24 11:44 MCHC 33.6 g/dL (30-55) 10/31/24 11:44 RDW 14.8 % (12.1-15.1) 10/31/24 11:44 Plt Count 257 10^3/cmm (157-399) 10/31/24 11:44 MPV 9.2 fL (7.4-10.4) 10/31/24 11:44 Neut % (Auto) 49.9 % 10/31/24 11:44 Lymph % (Auto) 42.7 % 10/31/24 11:44 [place] % (Auto) 5.1 % 10/31/24 11:44 Eos % (Auto) 1.1 % 10/31/24 11:44 Baso % (Auto) 0.5 % 10/31/24 11:44 Neut # (Auto) 5.39 10^3/uL (1.8-7.7) 10/31/24 11:44 Lymph # (Auto) 4.6 10^3/uL (0.8-4.8) 10/31/24 11:44 [place] # (Auto) 0.6 10^3/uL (0.2-0.9) 10/31/24 11:44 Eos # (Auto) 0.1 10^3/uL (0.0-0.8) 10/31/24 11:44 Baso # (Auto) 0.1 10^3/uL (0.0-0.1) 10/31/24 11:44 Nucleated RBC % (auto) 0 % 10/31/24 11:44 Nucleated RBCs # 0.0 /100WBC 10/31/24 11:44 Sodium 139 mmol/L (136-145) 10/31/24 11:44 Potassium 3.9 mmol/L (3.5-5.1) 10/31/24 11:44 Chloride 99 mmol/L (98-107) 10/31/24 11:44 Carbon Dioxide 22 mmol/L (22-29) 10/31/24 11:44 Anion Gap 21.9 (5-19) H 10/31/24 11:44 BUN 21 mg/dL (6-20) H 10/31/24 11:44 Creatinine 1.0 mg/dL (0.7-1.2) 10/31/24 11:44 GFR Calculation 78.5 mL/min (90-130) L 10/31/24 11:44 Glucose 98 mg/dL (65-115) 10/31/24 11:44 Calculated Osmolality 291 mOsm/kg (285-295) 10/31/24 11:44 Calcium 8.7 mg/dL (8.5-10.5) 10/31/24 11:44 Total Bilirubin 0.2 mg/dL (0.15-1.2) 10/31/24 11:44 AST 33 U/L (0-40) 10/31/24 11:44 ALT 31 U/L (0-41) 10/31/24 11:44 Alkaline Phosphatase 75 U/L (40-130) 10/31/24 11:44 Ammonia 50 umol/L (16-60) 10/31/24 11:44 Total Protein 7.9 g/dL (6.6-8.7) 10/31/24 11:44 Albumin 4.7 g/dL (3.5-5.2) 10/31/24 11:44 Globulin 3.2 g/dL (1.3-4.6) 10/31/24 11:44 Salicylates < 0.3 mg/dL (3-10) L 10/31/24 11:44 Acetaminophen < 5.0 ug/mL (10-30) L 10/31/24 11:44 Ethyl Alcohol 284 mg/dL (0-10) H 10/31/24 11:44 All radiology interpretation(s) finalized by discharge Discharge Plan Discharge Patient Disposition: Admitted As Inpatient Admit Provider: Jason Varner Clinical Impression: Suicidal ideation, Borderline personality disorder, Alcohol abuse Condition: Stable Coding Level of Care Code ED Wet End Operator for Garrett Marks
[2024-10-31 11:50] LABS: Basophils # 0.1 10^3/uL (0.0-0.1); Basophils % 0.5 %; Eosinophils # 0.1 10^3/uL (0.0-0.8); Eosinophils % 1.1 %; Hematocrit 46.1 % (37-53); Lymphocytes # 4.6 10^3/uL (0.8-4.8); Lymphocytes % 42.7 %; Mean Corpuscular HGB Conc 33.6 g/dL (30-55); Mean Corpuscular Hemoglobin 28.4 pg (27-33); Mean Corpuscular Volume 84.4 fl (82-101); Mean Platelet Volume 9.2 fL (7.4-10.4); Monocytes # 0.6 10^3/uL (0.2-0.9); Monocytes % 5.1 %; Neutrophils # 5.39 10^3/uL (1.8-7.7); Neutrophils % 49.9 %; Nucleated Red Blood Cells % 0 %; Platelet Count 257 10^3/cmm (157-399); Red Blood Count 5.46 10^6/uL (3.85-5.65); Red Cell Distribution Width 14.8 % (12.1-15.1); White Blood Count 10.81 10^3/uL (3.29-11.43)
[2024-10-31 12:07] LABS: Alanine Aminotransferase 31 U/L (0-41); Albumin Level 4.7 g/dL (3.5-5.2); Alcohol Level 284 mg/dL (0-10); Alkaline Phosphatase 75 U/L (40-130); Anion Gap 21.9 (5-19); Aspartate Amino Transferase 33 U/L (0-40); Blood Urea Nitrogen 21 mg/dL (6-20); Calcium 8.7 mg/dL (8.5-10.5); Carbon Dioxide 22 mmol/L (22-29); Chloride 99 mmol/L (98-107); Creatinine Clr Calc Pharmacy 103.5628; Globulin 3.2 g/dL (1.3-4.6); Glomerular Filtration Rate 78.5 mL/min (90-130); Glucose 98 mg/dL (65-115); Osmolality Calculated 291 mOsm/kg (285-295); Potassium 3.9 mmol/L (3.5-5.1); Sodium 139 mmol/L (136-145); Total Bilirubin 0.2 mg/dL (0.15-1.2); Total Protein 7.9 g/dL (6.6-8.7)
[2024-10-31 12:09] LABS: Ammonia 50 umol/L (16-60)
[2024-10-31 12:13] LABS: Acetaminophen < 5.0 ug/mL (10-30); Salicylate < 0.3 mg/dL (3-10)
--- NOTE | 2024-10-31 12:48 | PC.NURSE ---
96 hour hold rights read and reviewed with patient. Patient verbalized understandings and copy of rights given to patient.
[2024-10-31 13:26] VITALS: BP 139/92; PULSE 113; O2SAT 96
[2024-10-31 13:54] VITALS: BP 153/97; PULSE 110; RESP 17; TEMP 36.8; O2SAT 95
[2024-10-31 14:00] VITALS: BP 115/77; PULSE 93; RESP 18; TEMP 37; O2SAT 92
--- NOTE | 2024-10-31 14:59 | PC.ADMIT ---
[email or web address] Admission Note:Pt states that he was supposed to have an appt today at [facility], but was struggling so her called. He let them know what all was going on with him and then [facility] and an ambulance showed up and brought him in. Pt states that he was feeling suicidal and had a plan to stab himself. He states that he is always just scared and fearful. He started drinking today and had the knife sitting on his table ready. He has an 18 yo daughter at home still. States that he is going to run out of money in the near future. He has been trying to get on disability, but hasn't been successful yet. The patient,Jacobo Garsia,54 y/o, was given written information regarding hospital policies, unit procedures and contact persons. Patient's smoking status: current every day smoker. Vital Signs - 8 hr 10/31/24 11:26 10/31/24 13:26 10/31/24 13:54 Temperature 98.8 F 98.2 F Pulse Rate 129 H 113 H 110 H Respiratory Rate 16 17 Blood Pressure 166/108 139/92 153/97 Pulse Oximetry 95 96 95 Oxygen Delivery Method Room Air Room Air Room Air 10/31/24 14:01 Temperature Pulse Rate Respiratory Rate Blood Pressure Pulse Oximetry Oxygen Delivery Method Room Air
[2024-10-31] MEDS: thiamine 100 mg/mL 2mL SDV IM (15:14)
[2024-10-31] MEDS: acetaminophen 325 mg Tablet 650 MG PO (15:15)
[2024-10-31] MEDS: LORazepam 2 mg Tablet PO (16:17)
[2024-10-31] MEDS: ibuprofen 600 mg Tablet PO (17:06)
[2024-10-31] MEDS: timolol 0.5% Op Soln 5 mL Btl 1 DROP EYEAFF (17:13)
[2024-10-31] MEDS: BuSPIRONE 10 mg Tablet 20 MG PO (17:13)
[2024-10-31 19:56] VITALS: BP 118/81; PULSE 95; RESP 17; TEMP 36.9; O2SAT 94
[2024-10-31] MEDS: amitriptyline 25 mg Tablet 50 MG PO (20:41)
[2024-10-31] MEDS: trazodone 50 mg Tablet PO (20:41)
[2024-10-31] MEDS: ARIPiprazole 10 mg Tablet 5 MG PO (20:41)
[2024-10-31] MEDS: OLANZapine 5 mg ODT PO (20:41)
[2024-10-31] MEDS: latanoprost 0.005% Op Soln 2.5 mL Btl 1 DROP EYE-RIGHT (20:43)
[2024-11-01] VITALS (11 sets, daily range): BP systolic 111–127; BP diastolic 69–86; PULSE 66–108; RESP 16–18; TEMP 36.4–36.8; O2SAT 16–98
[2024-11-01] MEDS: budesonide 0.5 mg/2 mL Neb INHALATION ×2 (08:24→20:50)
[2024-11-01] MEDS: albuterol 2.5 mg/3 mL Neb INHALATION ×4 (08:24→20:50)
[2024-11-01] MEDS: hyDROXYzine 25 mg Capsule 50 MG PO (09:46)
[2024-11-01] MEDS: amlodipine 5 mg Tablet PO (09:47)
[2024-11-01] MEDS: naltrexone hcl 50 mg Tablet PO (09:47)
[2024-11-01] MEDS: BuSPIRONE 10 mg Tablet 20 MG PO ×2 (09:47→18:16)
[2024-11-01] MEDS: folic acid 1 mg Tablet PO (09:47)
[2024-11-01] MEDS: thiamine 100 mg Tablet PO (09:47)
[2024-11-01] MEDS: duloxetine 60 mg Capsule 120 MG PO (09:47)
[2024-11-01] MEDS: multivitamin therapeutic Tablet 1 TAB PO (09:47)
[2024-11-01] MEDS: acetaminophen 325 mg Tablet 650 MG PO ×2 (09:49→20:18)
[2024-11-01] MEDS: nicotine 4 mg lozenge MUCOUS MEM ×4 (11:03→20:24)
[2024-11-01] MEDS: LORazepam 2 mg Tablet PO ×2 (12:18→20:18)
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
[2024-11-01] MEDS: ibuprofen 600 mg Tablet PO (16:35)
[2024-11-01] MEDS: amitriptyline 25 mg Tablet 50 MG PO (20:18)
[2024-11-01] MEDS: ARIPiprazole 10 mg Tablet PO (20:19)
[2024-11-01] MEDS: latanoprost 0.005% Op Soln 2.5 mL Btl 1 DROP EYE-RIGHT (22:57)
[2024-11-02] VITALS (7 sets, daily range): BP systolic 123–140; BP diastolic 87–97; PULSE 62–91; RESP 16–19; TEMP 36.4–36.7; O2SAT 95–98
--- NOTE | 2024-11-02 01:25 | PC.NURSE ---
vs not completed per charge nurse resp 16
[2024-11-02] MEDS: LORazepam 2 mg Tablet PO ×4 (02:55→19:52)
[2024-11-02] MEDS: nicotine 4 mg lozenge MUCOUS MEM ×11 (02:57→23:42)
[2024-11-02] MEDS: naltrexone hcl 50 mg Tablet PO (07:35)
[2024-11-02] MEDS: amlodipine 5 mg Tablet PO (07:35)
[2024-11-02] MEDS: folic acid 1 mg Tablet PO (07:35)
[2024-11-02] MEDS: multivitamin therapeutic Tablet 1 TAB PO (07:35)
[2024-11-02] MEDS: BuSPIRONE 10 mg Tablet 20 MG PO ×2 (07:35→17:25)
[2024-11-02] MEDS: duloxetine 60 mg Capsule 120 MG PO (07:35)
[2024-11-02] MEDS: timolol 0.5% Op Soln 5 mL Btl 1 DROP EYEAFF ×2 (07:38→17:25)
[2024-11-02] MEDS: ondansetron 4 MG Tablet PO (08:30)
[2024-11-02] MEDS: thiamine 100 mg Tablet PO (09:00)
--- NOTE | 2024-11-02 10:32 | P.NPUPN_ITS ---
Subjective NPU 2 Subjective: Patient presented today reporting that things are going all right. He reports getting back on his medication was helpful but that the stress of having his daughter and some of the other challenges have become overwhelming. He endorsed a plan to maintain his sobriety and try to get things going and return to his regularly scheduled appointments next week. We discussed discharge planning and the likelihood of discharge by Tuesday. He denied any side effects to his medications. Mental Status Exam 2 MSE Comments: This is well-nourished, well-developed white male in hospital scrubs with poor grooming and intermittent eye contact. He recognized the health science writer of this note from previous admission. No abnormal involuntary motor movements were appreciated except for moderate psychomotor retardation. He was cooperative with exam in no acute distress. Speech was normal rate, rhythm and prosody. Mood described as depressed. His affect was flat and mood congruent. Thought process was linear and organized. Thought contact: He endorsed suicidal ideation with plan to overdose. He denied any homicidal ideation., there were no delusions reported or noted, patient denied auditory or visual hallucinations. Attention and concentration appeared intact and memory appeared reliable but none were formally tested. Patient is alert and oriented to person, place time and situation. Insight was poor. Judgment and impulse control appears impaired. Vitals/I&O/Wt Last Vital Signs Temp 97.6 F 11/02/24 08:00 Pulse 81 11/02/24 08:00 Resp 16 11/02/24 08:00 BP 140/97 11/02/24 08:00 Pulse Ox 95 11/02/24 08:00 O2 Del Method Room Air 11/02/24 02:55 Weight last 48 hrs Weight 98.883 kg Data NPU 10/31/24 11:44 10/31/24 11:44 A&P Assessment and plan (1) Major depressive disorder, recurrent: (2) Alcohol dependence: (3) Suicidal ideation: (4) Borderline personality disorder: (5) PTSD (post-traumatic stress disorder): Plan This is a 54-year-old male with depression, PTSD, borderline personality disorder and alcohol dependence admitted with suicidal ideation with continued alcohol abuse. Plan: 1. Restart outpatient medications with likely increase in abilify to 10mg to target depression. 2. Continue every 15 minute checks for safety. 3. Encourage individual, group and milieu therapies. 4. Encourage sober living treatment after discharge at the highest level of care to which he is willing to commit. 5. Initiate CIWA protocol 6. Will gather collateral information. PDMP PDMP Reviewed: Not Reviewed Involuntary Hold Information 2 Hold Status: Legal Status: 96 Hour Hold Date/Time Hold Expires: 11/06/2024 @ 1245 96 Hour Hold: 96 Hour Involuntary Admission: Yes Other Hold: Hold End Date: 06/27/24 Attestations NPU 2 Medical Necessity Statement*: Inpatient hospitalization is medically necessary and the clinically appropriate intervention at this time. We will monitor/initiate medications and make changes as indicated.? The patient will be in the hospital for over 2 midnights.? The patient?s likely length of stay is 3-5 Coding Level of Care Code Acute Code for Chg Fwd Diagnoses Severe episode of recurrent major depressive disorder, without psychotic features F33.2 Active/Remission status: currently active Major depression episode severity: severe Psychotic features: without psychotic features Alcohol dependence F10.20 Suicidal ideation R45.851 Borderline personality disorder F60.3 PTSD (post-traumatic stress disorder) F43.10
[2024-11-02] MEDS: ibuprofen 600 mg Tablet PO ×2 (10:55→23:42)
[2024-11-02] MEDS: albuterol 2.5 mg/3 mL Neb INHALATION ×3 (11:21→20:33)
[2024-11-02] MEDS: acetaminophen 325 mg Tablet 650 MG PO (12:45)
[2024-11-02] MEDS: amitriptyline 25 mg Tablet 50 MG PO (19:56)
[2024-11-02] MEDS: ARIPiprazole 10 mg Tablet PO (19:56)
[2024-11-02] MEDS: latanoprost 0.005% Op Soln 2.5 mL Btl 1 DROP EYE-RIGHT (19:56)
[2024-11-02] MEDS: budesonide 0.5 mg/2 mL Neb INHALATION (20:33)
[2024-11-02] MEDS: trazodone 50 mg Tablet PO (21:36)
[2024-11-03] VITALS (10 sets, daily range): BP systolic 105–162; BP diastolic 72–92; PULSE 76–101; RESP 16–19; TEMP 36.4–37; O2SAT 95–98
[2024-11-03] MEDS: trazodone 50 mg Tablet PO (01:17)
[2024-11-03] MEDS: hyDROXYzine 25 mg Capsule 50 MG PO (01:24)
[2024-11-03] MEDS: nicotine 4 mg lozenge MUCOUS MEM ×10 (03:53→22:34)
--- NOTE | 2024-11-03 07:42 | P.NPUPN_ITS ---
Subjective NPU 2 Subjective: Patient presented today reporting that things are going fine. He expressed the great improvement and near perfection of the Ativan is being given for the CIWA protocol. Explained that this is something that is for the process of assisting with withdrawal and not a good fit for long-term treatment given his alcohol use disorder and addiction overall. He was unsure of why this could be the case given how calm and well he feels on this medication. We began discussing discharge possibilities including Tuesday being the earliest day to consider discharge. He denied any side effects of the medication. Mental Status Exam 2 MSE Comments: This is well-nourished, well-developed white male in hospital scrubs with poor grooming and intermittent eye contact. He recognized the film writer of this note from previous admission. No abnormal involuntary motor movements were appreciated except for moderate psychomotor retardation. He was cooperative with exam in no acute distress. Speech was normal rate, rhythm and prosody. Mood described as depressed. His affect was flat and mood congruent. Thought process was linear and organized. Thought contact: He endorsed suicidal ideation with plan to overdose. He denied any homicidal ideation., there were no delusions reported or noted, patient denied auditory or visual hallucinations. Attention and concentration appeared intact and memory appeared reliable but none were formally tested. Patient is alert and oriented to person, place time and situation. Insight was poor. Judgment and impulse control appears impaired. Vitals/I&O/Wt Last Vital Signs Temp 97.9 F 11/03/24 04:00 Pulse 98 11/03/24 04:00 Resp 19 H 11/03/24 04:00 BP 133/89 11/03/24 04:00 Pulse Ox 98 11/03/24 04:00 O2 Del Method Room Air 11/03/24 04:00 Data NPU 10/31/24 11:44 10/31/24 11:44 A&P Assessment and plan (1) Major depressive disorder, recurrent: (2) Alcohol dependence: (3) Suicidal ideation: (4) Borderline personality disorder: (5) PTSD (post-traumatic stress disorder): Plan This is a 54-year-old male with depression, PTSD, borderline personality disorder and alcohol dependence admitted with suicidal ideation with continued alcohol abuse. Plan: 1. Restart outpatient medications. Abilify 10 mg p.o. daily. 2. Continue every 15 minute checks for safety. 3. Encourage individual, group and milieu therapies. 4. Encourage sober living treatment after discharge at the highest level of care to which he is willing to commit. 5. Initiate CIWA protocol 6. Will gather collateral information. PDMP PDMP Reviewed: Not Reviewed Involuntary Hold Information 2 Hold Status: Legal Status: 96 Hour Hold Date/Time Hold Expires: 11/06/2024 @ 1245 96 Hour Hold: 96 Hour Involuntary Admission: Yes Other Hold: Hold End Date: 06/27/24 Attestations NPU 2 Medical Necessity Statement*: Inpatient hospitalization is medically necessary and the clinically appropriate intervention at this time. We will monitor/initiate medications and make changes as indicated. The patient?s likely length of stay is 2-4 days. Coding Level of Care Code Acute Code for Chg Fwd Diagnoses Severe episode of recurrent major depressive disorder, without psychotic features F33.2 Active/Remission status: currently active Major depression episode severity: severe Psychotic features: without psychotic features Alcohol dependence F10.20 Suicidal ideation R45.851 Borderline personality disorder F60.3 PTSD (post-traumatic stress disorder) F43.10
[2024-11-03] MEDS: albuterol 2.5 mg/3 mL Neb INHALATION ×3 (07:47→22:26)
[2024-11-03] MEDS: budesonide 0.5 mg/2 mL Neb INHALATION ×2 (07:47→22:25)
[2024-11-03] MEDS: folic acid 1 mg Tablet PO (09:24)
[2024-11-03] MEDS: amlodipine 5 mg Tablet PO (09:24)
[2024-11-03] MEDS: duloxetine 60 mg Capsule 120 MG PO (09:24)
[2024-11-03] MEDS: multivitamin therapeutic Tablet 1 TAB PO (09:25)
[2024-11-03] MEDS: thiamine 100 mg Tablet PO (09:25)
[2024-11-03] MEDS: naltrexone hcl 50 mg Tablet PO (09:25)
[2024-11-03] MEDS: BuSPIRONE 10 mg Tablet 20 MG PO ×2 (09:25→17:58)
[2024-11-03] MEDS: timolol 0.5% Op Soln 5 mL Btl 1 DROP EYEAFF ×2 (09:27→17:58)
[2024-11-03] MEDS: ibuprofen 600 mg Tablet PO (09:29)
[2024-11-03] MEDS: LORazepam 2 mg Tablet PO ×2 (10:53→19:25)
--- NOTE | 2024-11-03 11:00 | PC.NURSE ---
CIWA score of 10, pt mainly experiencing moderate anxiety symptoms. Administered 2mg Ativan PO for anxiety and withdraw symptoms.all pt's needs are currently met.
[2024-11-03] MEDS: latanoprost 0.005% Op Soln 2.5 mL Btl 1 DROP EYE-RIGHT (20:03)
[2024-11-03] MEDS: amitriptyline 25 mg Tablet 50 MG PO (20:03)
[2024-11-03] MEDS: ARIPiprazole 10 mg Tablet PO (20:03)
[2024-11-04] VITALS (8 sets, daily range): BP systolic 105–136; BP diastolic 72–88; PULSE 87–112; RESP 16–18; TEMP 36.3–36.8; O2SAT 95–98
[2024-11-04] MEDS: nicotine 4 mg lozenge MUCOUS MEM ×8 (03:18→23:52)
[2024-11-04] MEDS: budesonide 0.5 mg/2 mL Neb INHALATION ×2 (08:43→21:00)
[2024-11-04] MEDS: albuterol 2.5 mg/3 mL Neb INHALATION ×3 (08:43→21:00)
[2024-11-04] MEDS: thiamine 100 mg Tablet PO (08:56)
[2024-11-04] MEDS: folic acid 1 mg Tablet PO (08:56)
[2024-11-04] MEDS: duloxetine 60 mg Capsule 120 MG PO (08:56)
[2024-11-04] MEDS: BuSPIRONE 10 mg Tablet 20 MG PO ×2 (08:56→16:58)
[2024-11-04] MEDS: naltrexone hcl 50 mg Tablet PO (08:56)
[2024-11-04] MEDS: timolol 0.5% Op Soln 5 mL Btl 1 DROP EYEAFF ×2 (08:56→16:58)
[2024-11-04] MEDS: amlodipine 5 mg Tablet PO (08:56)
[2024-11-04] MEDS: multivitamin therapeutic Tablet 1 TAB PO (08:56)
[2024-11-04] MEDS: ARIPiprazole 10 mg Tablet PO (20:09)
[2024-11-04] MEDS: OLANZapine 5 mg ODT PO (20:09)
[2024-11-04] MEDS: latanoprost 0.005% Op Soln 2.5 mL Btl 1 DROP EYE-RIGHT (20:09)
[2024-11-04] MEDS: amitriptyline 25 mg Tablet 50 MG PO (20:09)
--- NOTE | 2024-11-04 20:20 | P.NPUPN_ITS ---
Subjective NPU 2 Subjective: Patient presented today reporting that he is doing okay. He reports that he is going to ask his insurance to find a provider that would prescribe him Ativan. We continue to have a discussion about how Ativan is a very poor choice for someone with alcohol addiction as a medication to manage their anxiety and the risk for cross addiction in the future. We discussed the fact that even though he reports that he is never felt better and this seems like the only thing that is ever made him feel right. That this is essentially powdered alcohol and the same challenges that he would have at controlling his alcohol use would likely be there with controlling his usage of his benzodiazepine. We discussed other options like Neurontin which he reports he has had and has been ineffective. He denied any side effects of the medication and we continued to talk about discharge tomorrow. Mental Status Exam 2 MSE Comments: This is well-nourished, well-developed white male in hospital scrubs with poor grooming and intermittent eye contact. He recognized the publications writer of this note from previous admission. No abnormal involuntary motor movements were appreciated except for moderate psychomotor retardation. He was cooperative with exam in no acute distress. Speech was normal rate, rhythm and prosody. Mood described as depressed. His affect was flat and mood congruent. Thought process was linear and organized. Thought contact: He endorsed suicidal ideation with plan to overdose. He denied any homicidal ideation., there were no delusions reported or noted, patient denied auditory or visual hallucinations. Attention and concentration appeared intact and memory appeared reliable but none were formally tested. Patient is alert and oriented to person, place time and situation. Insight was poor. Judgment and impulse control appears impaired. Vitals/I&O/Wt Last Vital Signs Temp 98.0 F 11/04/24 20:00 Pulse 88 11/04/24 20:00 Resp 18 11/04/24 20:00 BP 112/85 11/04/24 20:00 Pulse Ox 96 11/04/24 20:00 O2 Del Method Room Air 11/04/24 20:00 Weight last 48 hrs Weight 97.159 kg Data NPU 10/31/24 11:44 10/31/24 11:44 A&P Assessment and plan (1) Major depressive disorder, recurrent: (2) Alcohol dependence: (3) Suicidal ideation: (4) Borderline personality disorder: (5) PTSD (post-traumatic stress disorder): Plan This is a 54-year-old male with depression, PTSD, borderline personality disorder and alcohol dependence admitted with suicidal ideation with continued alcohol abuse. Plan: 1. Restart outpatient medications. Abilify 10 mg p.o. daily. 2. Continue every 15 minute checks for safety. 3. Encourage individual, group and milieu therapies. 4. Encourage sober living treatment after discharge at the highest level of care to which he is willing to commit. 5. Initiate CIWA protocol 6. Will gather collateral information. PDMP PDMP Reviewed: Not Reviewed Involuntary Hold Information 2 Hold Status: Legal Status: 96 Hour Hold Date/Time Hold Expires: 11/06/2024 @ 1245 96 Hour Hold: 96 Hour Involuntary Admission: Yes Other Hold: Hold End Date: 06/27/24 Attestations NPU 2 Medical Necessity Statement*: Inpatient hospitalization is medically necessary and the clinically appropriate intervention at this time. We will monitor/initiate medications and make changes as indicated. The patient?s likely length of stay is 1-3 days. Coding Level of Care Code Acute Code for [facility] Fwd Diagnoses Severe episode of recurrent major depressive disorder, without psychotic features F33.2 Active/Remission status: currently active Major depression episode severity: severe Psychotic features: without psychotic features Alcohol dependence F10.20 Suicidal ideation R45.851 Borderline personality disorder F60.3 PTSD (post-traumatic stress disorder) F43.10
[2024-11-04] MEDS: trazodone 50 mg Tablet PO (21:37)
[2024-11-05 03:49] VITALS: BP 123/90; PULSE 101; RESP 18; O2SAT 97
[2024-11-05] MEDS: nicotine 4 mg lozenge MUCOUS MEM ×4 (05:41→12:40)
[2024-11-05 08:00] VITALS: BP 130/88; PULSE 78; RESP 16; TEMP 36.8; O2SAT 98
[2024-11-05] MEDS: duloxetine 60 mg Capsule 120 MG PO (08:11)
[2024-11-05] MEDS: thiamine 100 mg Tablet PO (08:11)
[2024-11-05] MEDS: folic acid 1 mg Tablet PO (08:12)
[2024-11-05] MEDS: multivitamin therapeutic Tablet 1 TAB PO (08:12)
[2024-11-05] MEDS: naltrexone hcl 50 mg Tablet PO (08:12)
[2024-11-05] MEDS: amlodipine 5 mg Tablet PO (08:12)
[2024-11-05] MEDS: timolol 0.5% Op Soln 5 mL Btl 1 DROP EYEAFF (08:12)
[2024-11-05] MEDS: BuSPIRONE 10 mg Tablet 20 MG PO (08:12)
[2024-11-05] MEDS: albuterol 2.5 mg/3 mL Neb INHALATION ×2 (08:34→11:12)
[2024-11-05] MEDS: budesonide 0.5 mg/2 mL Neb INHALATION (08:34)
[2024-11-05 08:35] VITALS: PULSE 103; RESP 16; O2SAT 98
[2024-11-05 11:13] VITALS: PULSE 89; RESP 16; O2SAT 97
[2024-11-05 11:24] VITALS: BP 120/84; PULSE 88; RESP 16; TEMP 36.6; O2SAT 97
[2024-11-05 12:00] VITALS: BP 120/84; PULSE 84; RESP 16; TEMP 36.6; O2SAT 97
== END 2024-11-05 14:09 | disposition home or self-care (01) | DRG 885 ==
LOC: ER 11:49 → NP 12:41
PROVIDERS: Admitting Provider Psychiatry & Neurology Psychiatry; Emergency Provider Family Medicine; PCP Family Medicine; Visit Provider Psychiatry & Neurology Psychiatry
DX: F33.2 Major depressive disorder, recurrent severe without psychotic features (principal); R45.851 Suicidal ideations; F10.229 Alcohol dependence with intoxication, unspecified; Y90.8 Blood alcohol level of 240 mg/100 ml or more; F17.210 Nicotine dependence, cigarettes, uncomplicated; F43.10 Post-traumatic stress disorder, unspecified; F60.3 Borderline personality disorder; Z91.51 Personal history of suicidal behavior
CPT/HCPCS: 36415; 80053; 80307; 82140; 85025; 94640; 96372; 97150; 97165; 99285; J3411; J7613; J7626; J9999; Q0162

== ENCOUNTER 2024-11-19 13:56 | Emergency (ER) | payer MEDICAID, SELFPAY ==
--- OUTSIDE RECORDS SUMMARY | 2021-03-12 05:42 | XMS_ITS | Continuity of Care Document ---
Author Organization [facility] Address [address] [id number] [address] Phone Care Team Providers Care Hand Iii Cutter Name Role Phone Guillaume PERAZA, Tyree Unavailable Unavailable Allergies, Adverse Reactions, Alerts Substance Reaction Status Criticality No Known Allergies Active No Inform ation Problems Condition Type Effective Dates (start - stop) Clini hugh Status Comments No Known Problems Procedures Procedure Date OFFICE/OUTPATIENT VISIT, [facility] Advance Directives Directive Yes / No Effective Date File Name No Information Encounters Encounter Description Practice Location Reason(s) For Visit Diagnoses Date Provider Providers Copied on Encounter [facility], [id number] [place], [place], [id number], [place] tel:[phone] Pediatrics F1 No Information Guillaume Clements. [address], [place], [id number] , [place]. tel:[phone] OFFICE/OUTPAT IENT VISIT, [facility], [id number], [id number], [place] tel:[phone] Family Medicine F1 Lower back ache (chief complaint) Acute midline low back pain without sciatica Drarell Kimbrough. [address], [place], [id number] , [place]. tel:[phone] Referring Provider: Luis E Ramírez, [address] [facility], [place] [place], [address] . tel:[phone] Family History Family Member Type Diagnosis Age At Onset No Information Payers Payer name Insurance type Covered libertarian ID Authoriza tion(s) No Information Social History Type Description Quantity Date Captured Comments Alcohol Use Details Unknown Caffeine Use Details Unknown Tobacco Use Status Smoking Status No Information Sex Male Chief Complaint And Reason For Visit No Information Reason For Referral Reason For Referral No Information History Of Present Illness Encounter Date Complaint History Of Prese nt Illness Lower back ache CC: Back injury last week after he pulled a muscle in his lower back, went to work the next day and they sent home until released to work with no restrictions, pt has rested lots and stretched since then Functional Status Date Functional Assessmen t No Information Instructions Date Instruction Additional Infor valentín Low Back pain is lakeshia y commonSx have currently resolvedNote for work as written, NO CHANGES to the note Related to Acute midline low back pain without sciatica Assessments Type Assessment Date No Information Patient Care Teams Name Effective Dates (start - stop) Status Members No Information
[2024-11-09 08:52] VITALS: BP 127/76; BMI 28.2
[2024-11-19 13:57] VITALS: BP 156/102; PULSE 107; RESP 20; TEMP 36.8; O2SAT 96
--- NOTE | 2024-11-19 14:01 | XRR_ITS ---
PROCEDURE INFORMATION: Exam: XR Right Femur Exam date and time: 11/19/2024 2:05 PM Age: 54 years old Clinical indication: Injury or trauma; Fall; Blunt trauma; Thigh or upper leg; Right TECHNIQUE: Imaging protocol: Radiologic exam of the right femur. Views: 2 views. COMPARISON: US ROR venous duplex LE RT 10/07/2021 1:57 PM FINDINGS: Bones/joints: Unremarkable. No acute fracture. Soft tissues: Unremarkable. XR/XR femur RT min 2V* [id number] IMPRESSION: No acute findings.
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
--- NOTE | 2024-11-19 14:51 | PC.PHAR ---
Pt states he has not taken any medications today because he does not take medications when he drinks.
== END 2024-11-19 15:23 | disposition home or self-care (01) ==
PROVIDERS: Emergency Provider Emergency Medicine; PCP Family Medicine
DX: S09.8XXA Other specified injuries of head, initial encounter (principal); F17.210 Nicotine dependence, cigarettes, uncomplicated; W19.XXXA Unspecified fall, initial encounter
CPT/HCPCS: 70450; 72125; 73552; 99284

== ENCOUNTER 2024-11-20 16:05 | Inpatient (IN) | payer MEDICAID, SELFPAY ==
--- OUTSIDE RECORDS SUMMARY | 2021-03-12 05:42 | XMS_ITS | Continuity of Care Document ---
Author Organization [facility] Address [id number], [place] [address] Phone Care Team Providers Care Foam Molder Name Role Phone Guillaume PERAZA, Tyree Unavailable Unavailable Allergies, Adverse Reactions, Alerts Substance Reaction Status Criticality No Known Allergies Active No Inform ation Problems Condition Type Effective Dates (start - stop) Clini hugh Status Comments No Known Problems Procedures Procedure Date OFFICE/OUTPATIENT VISIT, [facility] Advance Directives Directive Yes / No Effective Date File Name No Information Encounters Encounter Description Practice Location Reason(s) For Visit Diagnoses Date Provider Providers Copied on Encounter [facility], [id number] [place], [place], [id number], [place] tel:[phone] Pediatrics F1 No Information Guillaume Clements. [address], [place], [id number] , [place]. tel:[phone] OFFICE/OUTPAT IENT VISIT, [facility], [id number], [id number], [place] tel:[phone] Family Medicine F1 Lower back ache (chief complaint) Acute midline low back pain without sciatica Darrell Kimbrough. [address], [place], [id number] , [place]. tel:[phone] Referring Provider: Luis E Ramírez, [address] [facility], [place], [address] . tel:[phone] Family History Family Member Type Diagnosis Age At Onset No Information Payers Payer name Insurance type Covered democrat ID Authoriza tion(s) No Information Social History [...]
[2024-11-09 08:52] VITALS: BP 127/76; BMI 28.2
--- OUTSIDE RECORDS SUMMARY | 2024-11-20 16:09 | XMS_ITS | Clinical Summary ---
Author Organization [facility] Address [address] 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 Never 12/23/2020 Do you belong to any clubs o r organizations such as presybeterian groups, unions, fraternal or athletic groups, or [...] place to sleep or slept in a [place] (including now)? Yes 12/23/2020 Education Answer Date Recorded What is the highest level of school you have completed or the highest degree you have received? 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
[2024-11-20 16:10] VITALS: BP 158/94; PULSE 95; RESP 16; TEMP 36.8; O2SAT 93; BMI 29.2
--- NOTE | 2024-11-20 16:14 | W.ED.PSYCHS ---
HPI - Psych General: Chief Complaint: Psychiatric Symptoms Stated Complaint: 96 Time Seen by Provider: 11/20/24 16:11 History of Present Illness: 54-year-old male presents emergency room because he has been making suicidal ideation comments. He was hospitalized earlier this month in the [facility] related to alcohol use with suicidal ideation.he was brought into the emergency room by the [facility] department under 96-hour hold. Patient denies drinking any today. [facility] called the patient. He admitted to continued to be drinking heavily he states he has suicidal thoughts but does not act on them and has no intention to act on them today. Evidently a family member filled out a 96-hour hold for the court. Been making suicidal ideation comments. He was hospitalized earlier this month in the [facility] related to alcohol use with suicidal ideation. Patient has a healing laceration on his right forehead near the hairline does not open or bleeding no signs of infection dry eschar in place he reports reports to me that came from an episode where he was drinking and fell off of a porch and landed on the ground and cut his head. He has not had any vomiting since then no difficulty with walking. Related Data Home Medications ?Medication ?Instructions ?Recorded ?Confirmed latanoprost 0.005 % eye drops 1 drp ophthalmic (eye) QPM 06/22/24 11/20/24 timolol 0.5 % eye drops 1 drp ophthalmic (eye) BID 07/06/24 11/20/24 budesonide-formoterol HFA 160 1 puff inhalation BID 08/31/24 11/20/24 mcg-4.5 mcg/actuation aerosol inhaler (Symbicort) amitriptyline 50 mg tablet 50 mg PO BEDTIME 10/31/24 11/20/24 nicotine (polacrilex) 2 mg buccal See Rx Instructions .Route .COMPLEX 10/31/24 11/20/24 lozenge Previous Rx's ?Medication ?Instructions ?Recorded duloxetine 60 mg capsule,delayed 120 mg (2 x 60 mg) PO .q am #60 08/31/24 release caps naltrexone 50 mg tablet 50 mg PO .Every morning #30 tabs 08/31/24 amlodipine 5 mg tablet 5 mg PO DAILY #90 tabs 10/22/24 aripiprazole 10 mg tablet 10 mg PO BEDTIME 30 days #30 tabs 11/05/24 hydroxyzine pamoate 25 mg capsule 50 mg (2 x 25 mg) PO Q6H PRN 11/05/24 Anxiety 30 days #120 caps thiamine mononitrate (vit B1) 100 100 mg PO DAILY 30 days #30 tabs 11/05/24 mg tablet (Vitamin B-1 (mononitrate)) trazodone 50 mg tablet 50 mg PO BEDTIME PRN Sleep 30 days 11/05/24 #30 tabs buspirone 30 mg tablet 30 mg PO BID #60 tabs 11/08/24 Allergies Allergy/AdvReac Type Severity Reaction Status Date / Time neomycin Allergy ALGY-Redness Verified 11/08/24 13:22 of Skin Review of Systems Const: Denies: fever(s) or chills Card: Denies: chest pain Resp: Denies: dyspnea GI: Denies: abdominal pain : Denies: dysuria, urinary frequency or urinary urgency Musc: Denies: neck pain or back pain Skin/Breast: Denies: rash PFSH ED PFSH: Medical History Depression Nicotine addiction Alcohol use disorder, severe, in early remission, dependence Depression Alcohol use disorder Alcohol abuse Major depressive disorder, recurrent, severe with psychotic symptoms Homelessness Alcohol dependence Depression Depression with suicidal ideation Psychiatric care Family History Other Adopted Social History Smoking and tobacco/nicotine status: current every day tobacco/nicotine user cigarettes Packs smoked per day: 0.5 Years cigarettes smoked: 37 Quit status (tobacco/nicotine): has tried quititng Number of times tried to quit tobacco: 3 Second hand smoke exposure: Yes Alcohol intake: former Former alcohol use details: 09.30.23 last use Substance/Drug Use: former Former substance use details: 4 years since last use Adopted: Yes Caregiver/support person: No Lives independently: No Household members: other Details: Sober living facility - 7 other people live there Housing: Other Details: Sober living facility Marital status: Marital status details: 21 years ago Number of children: 1 Number of grandchildren: 0 Highest education level completed: GED or Equivalent service: No Current occupational status: other Details: filed for disability, in the appeal process Pets and animals: No Leisure activites: reading Do you think of yourself as: Straight/Heterosexual Current gender identity: Male Karen/Scientology: None Special karen needs: No Agree to transfusion: Yes Physical Exam Const: COMMON NORMALS: no acute distress GENERAL APPEARANCE: cooperative and comfortable ORIENTATION/CONSCIOUSNESS: Yes awake, Yes oriented to person, Yes oriented to place and Yes oriented to time HENMT: COMMON NORMALS: normocephalic, atraumatic and hearing grossly normal bilaterally HEAD & SCALP: normocephalic and atraumatic Resp: COMMON NORMALS: normal respiratory effort, No retractions, No use of accessory muscles and clear to auscultation bilaterally AUSCULTATION: clear to auscultation bilaterally Cardio: COMMON NORMALS: regular rate, regular rhythm and No murmurs present (Cardio) RATE: regular rate RHYTHM: regular rhythm GI: COMMON NORMALS: Soft to palpation and No hepatosplenomegaly present AUSCULTATION: Yes normoactive bowel sounds PALPATION: Yes Soft to palpation, No Tenderness to palpation present (GI), No Guarding due to palpation present (GI) and Yes No hepatosplenomegaly present Extremity: COMMON NORMALS: normal to inspection, capillary refill normal, no clubbing, cyanosis or edema, no calf tenderness and no pedal edema Neuro: SENSORIUM/ORIENTATION: Yes oriented to person, Yes oriented to place and Yes oriented to time OTHER: Neurologically intact no focal neurologic deficits noted Skin: COMMON NORMALS: no rashes or lesions noted GENERAL SKIN EXAM: no rashes or lesions noted Course Vital Signs: Vital signs: Vital Signs Temperature 98.3 F 11/20/24 16:10 Pulse Rate 95 11/20/24 16:10 Respiratory Rate 16 11/20/24 16:10 Blood Pressure 158/94 11/20/24 16:10 Pulse Oximetry 93 11/20/24 16:10 Oxygen Delivery Me thod Room Air 11/20/24 16:10 MDM - Psych Medical Decision Making CT of the head and neck are negative. Patient does not appear to be under the influence of alcohol at this time toxicology is pending. Discussed Dr. winchester. He agreed to take the patient on admission under the 96-hour hold orders written. Patient has been agreeable throughout his stay. Medical Records I reviewed the patient's medical records. Lab Data I reviewed the patient's lab results. 11/20/24 16:38 11/20/24 16:38 Radiology Impressions Cervical Spine CT 11/20/24 16:28 IMPRESSION: No acute cervical spine fracture. Multilevel degenerative changes ADDENDUM: 11/20/24 [id number] In the bones section of the findings it should read that there is NO high-grade bony spinal canal narrowing. Head CT 11/20/24 16:28 IMPRESSION: No acute intracranial abnormality. Laboratory Results WBC 7.28 10^3/uL (3.29-11.43) 11/20/24 16:38 RBC 4.86 10^6/uL (3.85-5.65) 11/20/24 16:38 Hgb 13.90 g/dL (11.27-16.99) 11/20/24 16:38 Hct 42.9 % (37-53) 11/20/24 16:38 MCV 88.3 fl (82-101) 11/20/24 16:38 MCH 28.6 pg (27-33) 11/20/24 16:38 MCHC 32.4 g/dL (30-55) 11/20/24 16:38 RDW 16.0 % (12.1-15.1) H 11/20/24 16:38 Plt Count 258 10^3/cmm (157-399) 11/20/24 16:38 MPV 10.4 fL (7.4-10.4) 11/20/24 16:38 Neut % (Auto) 70.5 % 11/20/24 16:38 Lymph % (Auto) 20.3 % 11/20/24 16:38 [place] % (Auto) 7.6 % 11/20/24 16:38 Eos % (Auto) 0.3 % 11/20/24 16:38 Baso % (Auto) 0.5 % 11/20/24 16:38 Neut # (Auto) 5.13 10^3/uL (1.8-7.7) 11/20/24 16:38 Lymph # (Auto) 1.5 10^3/uL (0.8-4.8) 11/20/24 16:38 [place] # (Auto) 0.6 10^3/uL (0.2-0.9) 11/20/24 16:38 Eos # (Auto) 0.0 10^3/uL (0.0-0.8) 11/20/24 16:38 Baso # (Auto) 0.0 10^3/uL (0.0-0.1) 11/20/24 16:38 Nucleated RBC % (auto) 0 % 11/20/24 16:38 Nucleated RBCs # 0.0 /100WBC 11/20/24 16:38 All radiology interpretation(s) finalized by discharge Discharge Plan Discharge Patient Disposition: Admitted As Inpatient Admit Provider: Jason Varner Clinical Impression: Alcohol abuse, Suicidal ideation, Fall, Laceration of face, Closed head injury Condition: Stable 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
--- NOTE | 2024-11-20 16:28 | CTR_ITS ---
PROCEDURE INFORMATION: Exam: CT Head Without Contrast Exam date and time: 11/20/2024 4:39 PM Age: 54 years old Clinical indication: Injury or trauma; Fall; Blunt trauma (contusions or hematomas); With loss of consciousness; Not specified TECHNIQUE: Imaging protocol: Computed tomography of the head without contrast. Radiation optimization: All CT scans at this facility use at least one of these dose optimization techniques: automated exposure control; mA and/or kV adjustment per patient size (includes targeted exams where dose is matched to clinical indication); or iterative reconstruction. COMPARISON: CT head wo con* [id number] 11/19/2024 2:24 PM RADIATION DOSE METRICS: Total DLP (mGy-cm): 1171.2 FINDINGS: Brain: Normal. No hemorrhage. Unremarkable white matter. No mass effect. Cerebral ventricles: No ventriculomegaly. Paranasal sinuses: Visualized sinuses are unremarkable. No fluid levels. Mastoid air cells: There are effusions within the right mastoid air cell. Bones: Unremarkable. No acute fracture. Soft tissues: Unremarkable. CT/CT head wo con* [id number] IMPRESSION: No acute intracranial abnormality.
--- NOTE | 2024-11-20 16:28 | CTR_ITS ---
PROCEDURE INFORMATION: Exam: CT Cervical Spine Without Contrast Exam date and time: 11/20/2024 4:39 PM Age: 54 years old Clinical indication: Injury or trauma; Fall; Blunt trauma TECHNIQUE: Imaging protocol: Computed tomography of the cervical spine without contrast. Radiation optimization: All CT scans at this facility use at least one of these dose optimization techniques: automated exposure control; mA and/or kV adjustment per patient size (includes targeted exams where dose is matched to clinical indication); or iterative reconstruction. COMPARISON: CT cervical spin wo con* [id number] 11/19/2024 2:24 PM RADIATION DOSE METRICS: Total DLP (mGy-cm): 199.6 FINDINGS: Bones: No acute displaced cervical spine fracture. Multilevel degenerative changes of the cervical spine resulting in varying degrees of neural foraminal narrowing. High-grade bony spinal canal narrowing. Lungs: Lung apices are normal. Soft tissues: Unremarkable. CT/CT cervical spin wo con* [id number] IMPRESSION: No acute cervical spine fracture. Multilevel degenerative changes
--- NOTE | 2024-11-20 16:41 | PC.PHAR ---
Med rec completed daily the last 2 days pt states nothing changed, he does not take medications when he drinks.
[2024-11-20 16:51] LABS: Hematocrit 42.9 % (37-53); Hemoglobin 13.90 g/dL (11.27-16.99); Mean Corpuscular HGB Conc 32.4 g/dL (30-55); Mean Corpuscular Hemoglobin 28.6 pg (27-33); Mean Corpuscular Volume 88.3 fl (82-101); Nucleated Red Blood Cells % 0 %; Platelet Count 258 10^3/cmm (157-399); Red Blood Count 4.86 10^6/uL (3.85-5.65); White Blood Count 7.28 10^3/uL (3.29-11.43)
--- NOTE | 2024-11-20 17:30 | PC.NURSE ---
96 hr rights reviewed with pt @[id number] with assistance of [facility] security escort Clyde Draper. All education reviewed at this time. No verbalized questions to HS regarding hold parameters. Pt copy was left with pt. Pt provided a water and sprite by HS. No further needs.
[2024-11-20 17:34] LABS: Alanine Aminotransferase 34 U/L (0-41); Albumin Level 4.3 g/dL (3.5-5.2); Alkaline Phosphatase 71 U/L (40-130); Blood Urea Nitrogen 15 mg/dL (6-20); Calcium 9.6 mg/dL (8.5-10.5); Carbon Dioxide 23 mmol/L (22-29); Chloride 102 mmol/L (98-107); Creatinine Clr Calc Pharmacy 145.4123; Globulin 2.6 g/dL (1.3-4.6); Glucose 113 mg/dL (65-115); Osmolality Calculated 290 mOsm/kg (285-295); Sodium 139 mmol/L (136-145); Total Protein 6.9 g/dL (6.6-8.7)
[2024-11-20 17:39] LABS: Acetaminophen < 5.0 ug/mL (10-30); Alcohol Level < 10 mg/dL (0-10); Salicylate < 0.3 mg/dL (3-10)
[2024-11-20 17:41] VITALS: BP 163/93; PULSE 90; RESP 18; TEMP 36.4; O2SAT 97
[2024-11-20 17:41] LABS: Anion Gap 18.1 (5-19); Aspartate Amino Transferase 29 U/L (0-40); Potassium 4.1 mmol/L (3.5-5.1)
[2024-11-20 19:37] VITALS: BP 161/98; PULSE 91; RESP 18; TEMP 36.7; O2SAT 96
[2024-11-21] VITALS (7 sets, daily range): BP systolic 120–157; BP diastolic 82–98; PULSE 78–101; RESP 18; TEMP 36.4–36.6; O2SAT 96–98
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
[2024-11-22] VITALS: BP 117/83; PULSE 81; RESP 18; TEMP 36.5; O2SAT 95
[2024-11-22 04:00] VITALS: BP 138/92; PULSE 90; RESP 18; TEMP 36.8; O2SAT 97
[2024-11-22 08:00] VITALS: BP 114/81; PULSE 96; RESP 16; TEMP 36.4; O2SAT 96
--- NOTE | 2024-11-22 08:55 | NUR.SHIFT ---
Pt states that he slept alright. He rates his anxiety 7/10 and depression 6/10. No reports of SI/HI or hallucinations. He rates his low back pain and Rt leg pain a 6/10. He is calm and cooperative on assessment.
[2024-11-22 12:00] VITALS: BP 123/88; PULSE 101; RESP 17; TEMP 36.6; O2SAT 97
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
[2024-11-22 14:09] VITALS: BP 124/84; PULSE 101; RESP 17; TEMP 36.7; O2SAT 96
== END 2024-11-22 15:21 | disposition home or self-care (01) | DRG 885 ==
LOC: ER 16:16 → NP 16:51
PROVIDERS: Admitting Provider Psychiatry & Neurology Psychiatry; Emergency Provider Family Medicine; PCP Family Medicine; Visit Provider Psychiatry & Neurology Psychiatry
DX: F33.2 Major depressive disorder, recurrent severe without psychotic features (principal); R45.851 Suicidal ideations; F10.20 Alcohol dependence, uncomplicated; F60.3 Borderline personality disorder; F43.10 Post-traumatic stress disorder, unspecified; Z91.51 Personal history of suicidal behavior; F17.210 Nicotine dependence, cigarettes, uncomplicated
CPT/HCPCS: 36415; 70450; 72125; 80053; 80307; 85025; 97150; 97165; 99285; J9999

== ENCOUNTER 2024-12-03 14:02 | Outpatient (CLI) | payer SELFPAY ==
[2024-11-09 08:52] VITALS: BP 127/76; BMI 28.2
--- NOTE | 2024-12-03 14:15 | USCV_ITS ---
Jacobo Garsia Age: 54 Gender: M : 1970 Exam Date: 12/03/2024 14:33 Ordering Phys: Alden Jeffers M.D ([email or web address]) Technologist: Exam Location: [facility] [place] Indication: cp as BP: 150 / 93 HR: 67 Rhythm: Sinus Technical Quality: Adequate MEASUREMENTS (Male / Female) Normal Values 2D ECHO LV Diastolic Diameter PLAX 4.3 cm 4.2 - 5.9 / 3.9 - 5.3 cm IVS Diastolic Thickness 1.3 cm 0.6 - 1.0 / 0.6 - 0.9 cm IVS Systolic Thickness 1.6 cm LVPW Diastolic Thickness 1.0 cm 0.6 - 1.0 / 0.6 - 0.9 cm LVPW Systolic Thickness 2.0 cm LVOT Diameter 2.0 cm LV Ejection Fraction 2D Teich 60.5 % LV Ejection Fraction MOD 4C 57.6 % LV Ejection Fraction MOD 2C 58.5 % LV Ejection Fraction 2C AL 58.3 % LA Diameter 3.6 cm RA Systolic Volume 4C AL 30.6 ml RA Systolic Volume 4C MOD 27.6 ml Aorta at Sinotubular Diameter 3.3 cm IVC Diameter 1.9 cm M-MODE LA Ao Ratio MM 0.9 AV Cusp Separation MM 2.4 cm DOPPLER AV Peak Velocity 102.0 cm/s LVOT Peak Velocity 73.0 cm/s AV Area Cont Eq vti 2.3 cm squared AV Area Cont Eq pk 2.3 cm squared MV Peak Velocity 68.0 cm/s MV Area PHT 3.9 cm squared Mitral E to A Ratio 1.0 TV Peak Velocity 189.5 cm/s TR Peak Velocity 211.0 cm/s TR Peak Gradient 17.8 mmHg TV Peak E Velocity 79.0 cm/s PV Peak Velocity 75.0 cm/s FINDINGS Left Ventricle Left ventricle is normal in size. LV systolic function is mildly reduced with EF of 45-50%. Mild global hypokinesis. Right Ventricle Normal in size and function Right Atrium Normal in size Left Atrium Normal in size Mitral Valve Structurally normal mitral valve. Mild mitral regurgitation. Aortic Valve Structurally normal aortic valve. No significant stenosis or regurgitation. Tricuspid Valve Mild tricuspid regurgitation. Pulmonary artery systolic pressure is normal. Pulmonic Valve Mild pulmonic regurgitation. Pericardium Normal Aorta Normal in size IVC Appears to be normal CONCLUSIONS LV systolic function is mildly reduced with EF of 45-50% Mild mitral regurgitation Mild tricuspid regurgitation Mild pulmonic regurgitation No comparison studies are available. Alden Jeffers MD (Electronically Signed) Final Date: 07 December 2024 10:12 S
== END 2024-12-03 14:03 | disposition home or self-care (01) ==
LOC: RAD 14:02
PROVIDERS: PCP Family Medicine; Visit Provider Internal Medicine
DX: R07.9 Chest pain, unspecified (principal); R06.02 Shortness of breath; R93.1 Abnormal findings on diagnostic imaging of heart and coronary circulation; I34.0 Nonrheumatic mitral (valve) insufficiency; I07.1 Rheumatic tricuspid insufficiency; I37.1 Nonrheumatic pulmonary valve insufficiency
CPT/HCPCS: 93306

== ENCOUNTER → 2024-12-19 14:56 | Outpatient (BNVA) | payer OTHER, SELFPAY ==
[2024-12-03 15:24] VITALS: BP 127/76; BMI 28.2
== END ==
PROVIDERS: PCP Family Medicine; Visit Provider Student in an Organized Health Care Education/Training Program
DX: M94.262 Chondromalacia, left knee (principal)
CPT/HCPCS: 73560; 73565

== ENCOUNTER 2025-01-02 08:17 | Outpatient (CLI) | payer MEDICAID, SELFPAY ==
[2024-12-25 07:28] VITALS: BP 127/76; BMI 28.2
--- NOTE | 2025-01-02 | ECG_ITS ---
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 Interpretive Statements LEXISCAN: Procedure: At the baseline, the blood pressure was 138/88 mmHg with a heart rate of 58 bpm. The electrocardiogram showed normal sinus bradycardia. normal axis with normal ST and T's. The Lexiscan was infused over a period of 20 seconds. A total of 0.4 mg of Lexiscan was infused. The stress phase was continued for a total of 5 minutes. Heart rate was at the end of stress phase was 80 bpm and a blood pressure of 131/80 mmHg. The EKG at the peak infusion revealed normal sinus rhythm with no significant ST-T wave changes. Sestamibi was injected 20 seconds after the Lexiscan infusion. Blood pressure at the end of recovery phase was 124/79 mmHg with a heart rate of 78 bpm. Conclusion: 1. Normal EKG response to Lexiscan infusion 2. No Lexiscan induced chest pain or cardiac arrhythmia. 3. Normal blood pressure and heart rate response. 4. Sestamibi/sestamibi perfusion scan pending; see separate report. Electronically Signed On 01-06-2025 22:55:25 CDT by Alden Jeffers M.D. [email or web address]
[2025-01-02 08:44] VITALS: BMI 30.7
--- NOTE | 2025-01-02 08:45 | NMCV_ITS ---
NM xena perf SPECT r/s* [id number] AdyJacobo ordonez Age: 54 Gender: M : 1970 Exam Date: 01/02/2025 09:34 Ordering Phys: Alden Jeffers M.D ([email or web address]) Technologist: LALA Tellez Exam Location: [facility] Indications: cp STRESS TEST [facility] IMAGE PROTOCOL Rest/Stress 1 Lexiscan Day Radiopharmaceutical Dose (mCi) Administration Site Administered by Rest: Tc-99m 10.5 IV LALA Tellez Sestamibi Stress:Tc-99m 32.6 IV LALA Bravo Sestamibi Rest: 02-Jan-2025 60 Discovery 630 Stress: 02-Jan-2025 30 Discovery 630 0.4mg Lexiscan. Images obtained in supine and prone position. SPECT RESULTS Technical Quality: Good Raw Data Analysis: Normal Image Corrections: No attenuation or motion correction applied Summed Stress Score: 5 Summed Rest Score: 5 Summed Difference Score: 1 PERFUSION FINDINGS Small to medium sized area of fixed perfusion defects seen in the inferior and inferolateral humphrey. This is consistent with small to medium sized area of prior infarct seen in these humphrey. No evidence of ischemia. FUNCTIONAL RESULTS (calculated via Gated SPECT) Stress Image LV EF (%): 58 Stress EDV (mL):130 TID: 0.99 Stress ESV (mL):55 FUNCTIONAL FINDINGS: There is normal left ventricular systolic function. IMPRESSIONS 1. Abnormal myocardial perfusion imaging with small to medium sized areas of prior infarct seen in the inferior and inferolateral humphrey. No evidence of ischemia 2. LV systolic function is normal Alden Jeffers MD (Electronically Signed) Final Date: 02 January 2025 12:25 S
[2025-01-02 10:13] VITALS: BP 124/79; PULSE 75
== END 2025-01-02 08:18 | disposition home or self-care (01) ==
LOC: CDL 08:19
PROVIDERS: PCP Family Medicine; Visit Provider Internal Medicine
DX: R07.9 Chest pain, unspecified (principal); R93.1 Abnormal findings on diagnostic imaging of heart and coronary circulation; I25.2 Old myocardial infarction; I21.19 ST elevation (STEMI) myocardial infarction involving other coronary artery of inferior wall
CPT/HCPCS: 36415; 78452; 93017; 96374; A9500; J2785

== ENCOUNTER → 2025-01-17 11:15 | Outpatient (BNVA) | payer OTHER, SELFPAY ==
[2024-12-25 07:28] VITALS: BP 127/76; BMI 28.2
== END ==
PROVIDERS: PCP Family Medicine; Visit Provider Nurse Practitioner Psychiatric/Mental Health
DX: Z79.899 Other long term (current) drug therapy (principal); F10.21 Alcohol dependence, in remission; F60.3 Borderline personality disorder
CPT/HCPCS: 80061; 83036

== ENCOUNTER → 2025-04-02 14:29 | Outpatient (BNVA) | payer MEDICAID, SELFPAY ==
[2025-01-31 16:42] VITALS: BP 123/86; BMI 31.0
== END ==
PROVIDERS: PCP Family Medicine; Visit Provider Student in an Organized Health Care Education/Training Program
DX: M94.262 Chondromalacia, left knee (principal)
CPT/HCPCS: 20610; 99213; J3301; J9999